=== PATIENT | male | born 1965 | race Caucasian/White ===

== ENCOUNTER 2018-03-17 01:12 | Day surgery (SDC) | payer BC ==
[~2018-03-17] VITALS: Ht 167.6 cm; Wt 72.1 kg
[2018-03-17] VITALS (8 sets, daily range): BP systolic 82–117; BP diastolic 54–88
[2018-03-17] MEDS ORDERED: PROPOFOL EMUL(*) 10MG/ML 20 ML 40 ML ONE (06:59)
[2018-03-17] MEDS ORDERED: NORMOSOL R SOLN(*) 1000 ML BAG 1,000 ML IV PRN (07:20)
[2018-03-17] MEDS ORDERED: LIDOCAINE/SOD BICARB 8.4% SYR ID ONE (07:20)
[2018-03-17] MEDS ORDERED: PROPOFOL EMUL(*) 10MG/ML 20 ML 20 ML ONE (08:42)
[2018-03-17] MEDS ORDERED: IOPAMIDOL 76% 75 ML INFUS BTL 75 ML ONE (10:07)
--- NOTE | 2018-03-17 11:09 | RADIOLOGY IMAGING REPORT ---
[place] [facility] [place] Nuñez : 1965 MR: [id number] V: [id number] EXAM DATE: ORDERING PHYSICIAN: GISELE ROPER TECHNOLOGIST: Location: [facility] Patient: Ellis Nuñez : 1965 Visit/Account:[id number] Date of Sevice: 03/17/2018 ABDOMEN/PELVIS WITH CONTRAST Provided history: COLON MASS Additional pertinent history: none TECHNIQUE: Spiral scan was obtained from the lower chest through the symphysis with intravenous cont rast Contrast dose: 75 mL Isovue 370 intravenously. Source images were reformatted in the coronal and sagittal planes. Additional series performed today: none One of the following dose optimization techniques was utilized in the performance of this exam: Autom ated exposure control; adjustment of the mA and/or kV according to the patient's size; or use of an i terative reconstruction technique. Specific details can be referenced in the facility's radiology CT exam operational policy. COMPARISON STUDIES: No relevant priors FINDINGS: Lower chest: Negative Liver/biliary: Negative Pancreas: Negative Spleen: Negative Adrenal glands: Negative Kidneys / ureters / bladder / genitourinary / retroperitoneum: Negative Bowel / peritoneum / mesenteries: Moderate asymmetric thickening of the anterior left lateral wall of the mid and upper rectum I presume correlates with the clinically evident mass. This appears to be b elow the peritoneal reflection. The mass extends for a length of approximately 5 cm with up to 9 mm t hickening of the wall. It appears to begin at least 5 cm above the anal verge. Only a single small perirectal lymph node is identified on axial image 96 and coronal image 65, nonsp ecific. There are shotty retroperitoneal lymph nodes are likely benign. No pathologically enlarged ab dominal or pelvic lymph nodes or inguinal lymph nodes. Vessels: negative Lymph nodes: See above. No significant additional lymph node findings. Body wall: Moderate sized subumbilical fat-containing hernia without inflammation. Bones: negative IMPRESSION: Asymmetric wall thickening of the mid and upper rectum as fully defined above I presume the site of p rimary neoplasm. Only a single very small lymph node noted in the perirectal fat. No distant adenopat hy. No evidence of distant metastatic disease. Report Dictated By: Omar Rivas MD at 03/17/2018 10:57 AM Report E-Signed By: Omar Rivas MD at 03/17/2018 11:06 AM WSN:[id number]
== END 2018-03-17 11:00 | disposition home or self-care (01) ==
LOC: OR 01:12
PROVIDERS: ATTEND Family Medicine
DX: C20 Malignant neoplasm of rectum (principal)
CPT/HCPCS: 00811; 36415; 45385; 74177; 82378; 88305; 88344; J2704; Q9967; 82040; 82247; 82310; 82374; 82435; 82565; 82947; 84075; 84132; 84155; 84295; 84450; 84460; 84520

== ENCOUNTER → 2018-03-22 | Outpatient (CLI) | payer BC ==
[~2018-03-22] MED LIST: GADOBENATE 529MG/1ML 15ML VIAL IVP ONE; NS 0.9% 25 ML BAG 50 ML ONE
--- NOTE | 2018-03-22 12:48 | RADIOLOGY IMAGING REPORT ---
FACILITY: [facility] [place] PATIENT NAME: Ellis Nuñez : 1965 MR: [id number] V: [id number] EXAM DATE: ORDERING PHYSICIAN: GISELE OLVERA TECHNOLOGIST: Location: [facility] [place] Patient: Ellis Nuñez : 1965 Visit/Account:[id number] Date of Sevice: 03/22/2018 ORBITS FOREIGN BODY 1 VIEW INDICATION: Pre-MRI. COMPARISON: None available FINDINGS: Single frontal view the orbits. No radiopaque foreign body besides dental work. The sinus es and mastoids visualized are clear. No gross bony abnormality. IMPRESSION: No radiopaque foreign body in the orbits. Report Dictated By: Kumar Clark at 03/22/2018 12:43 PM Report E-Signed By: Kumar Clark at 03/22/2018 12:44 PM WSN:[id number]
--- NOTE | 2018-03-22 18:18 | RADIOLOGY IMAGING REPORT ---
FACILITY: [facility] PATIENT NAME: Ellis Nuñez : 1965 MR: [id number] V: [id number] EXAM DATE: ORDERING PHYSICIAN: GISELE OLVERA TECHNOLOGIST: Location: [facility] Patient: Ellis Nuñez : 1965 Visit/Account:[id number] Date of Sevice: 03/22/2018 PELVIS W W/O CONTRAST HISTORY: Rectal mass TECHNIQUE: Multiplanar multisequence magnetic resonance imaging of the pelvis was performed with an d without intravenous contrast on a 1.5T magnet. High resolution oblique imaging of the pelvis was p erformed with attention to the rectal mass. CONTRAST: 15 mL IV MultiHance COMPARISON STUDIES: CT 03/17/18 FINDINGS: Rectal Tumor (T) : There is a circumferential mass of the lower sigmoid-rectal junction I think traversing the peritonea l reflection with the mass extending to the mid rectal level. Lower margin of the mass is at least 7 cm above the anal verge. There is eccentric thickening of the left lateral wall measuring up to 14 mm. Mass appears to be contained by the muscularis propria without gross extension into the mesorect al fat. The right mesorectal fascia is 7 mm from the margin of the right lateral wall the mass. The re is a larger mass free interval on left. Nodes (N) : None Metastasis (M) : None Other Findings: IMPRESSION: Large mid and upper rectal tumor and probably also involving the lower sigmoid which appears to be c ontained by the muscular propria, by MRI a T2 lesion. No pelvic adenopathy or osseous metastatic dis ease. Report Dictated By: Omar Rivas MD at 03/22/2018 5:56 PM Report E-Signed By: Omar Rivas MD at 03/22/2018 6:14 PM WSN:[id number]
== END ==
LOC: MRI 01:23
PROVIDERS: ATTEND Surgery
DX: Z13.89 Encounter for screening for other disorder (principal); K62.9 Disease of anus and rectum, unspecified
CPT/HCPCS: 70030; 72197; A9577

== ENCOUNTER → 2018-03-29 | Outpatient (CLI) | payer BC ==
[~2018-03-29] MED LIST changes: -GADOBENATE 529MG/1ML 15ML VIAL IVP ONE; +IOPAMIDOL 76% 75 ML INFUS BTL 75 ML ONE; -NS 0.9% 25 ML BAG 50 ML ONE
--- NOTE | 2018-03-29 13:01 | RADIOLOGY IMAGING REPORT ---
FACILITY: [facility] PATIENT NAME: Ellis Nuñez : 1965 MR: [id number] V: [id number] EXAM DATE: ORDERING PHYSICIAN: GISELE OLVERA TECHNOLOGIST: Location: [facility] [place] Patient: Ellis Nuñez : 1965 Visit/Account:[id number] Date of Sevice: 03/29/2018 CHEST W CONTRAST HISTORY: Rectal cancer staging TECHNIQUE: CT chest with intravenous contrast. Contiguous helical images was performed from the lung apices to below the diaphragm. One of the following dose optimization techniques was utilized in the performance of this exam: Autom ated exposure control; adjustment of the mA and/or kV according to the patient's size; or use of an i terative reconstruction technique. Specific details can be referenced in the facility's radiology C T exam operational policy. CONTRAST: 75 cc of Isovue-370 COMPARISON: CT abdomen pelvis 03/22/2018 FINDINGS: Heart/vessels: Negative. Mediastinum: Negative. Lymph nodes: Negative. Lungs/pleura: 3 mm pleural-based right middle lobe nodules noted image 208. 6 x 6 mm pleural-based left lower lobe nodules noted image 189. These nodules are indeterminant for follow-up. Visualized upper abdomen: Negative. Bones/soft tissues: T6 vertebral body hemangioma is noted. Mild compression of T5 is noted involvin g 5% of the vertebral body height which is of uncertain chronicity. IMPRESSION: 1. 2 small indeterminate pulmonary micronodules the largest measuring 6 mm in the left lower lobe. Follow-up CT scan in 6 months is suggested. Report Dictated By: Kumar Lainez MD at 03/29/2018 12:49 PM Report E-Signed By: Kumar Lainez MD at 03/29/2018 12:58 PM WSN:[email or web address]
== END ==
LOC: CT 01:51
PROVIDERS: ATTEND Surgery
DX: R91.8 Other nonspecific abnormal finding of lung field (principal)
CPT/HCPCS: 71260; Q9967

== ENCOUNTER 2018-04-07 02:15 | Inpatient (IN) | payer BC ==
[2018-04-05 13:13] LABS: PLATELET COUNT, AUTOMATED 326 K/uL (150-450)
[~2018-04-07] VITALS: Ht 167.6 cm; Wt 72.1 kg
[2018-04-07] VITALS (13 sets, daily range): BP systolic 83–109; BP diastolic 51–84
[2018-04-07] MEDS ORDERED: ROPIVACAINE 0.5% 20 ML VIAL ONE ×3 (07:19→16:28)
[2018-04-07] MEDS ORDERED: ONDANSETRON 4 MG/2 ML VIAL ONE ×2 (09:17→09:19)
[2018-04-07] MEDS ORDERED: PROPOFOL EMUL(*) 10MG/ML 20 ML 20 ML ONE (09:17)
[2018-04-07] MEDS ORDERED: LIDOCAINE MPF 1% 5 ML VIAL ONE ×3 (09:17→14:26)
[2018-04-07] MEDS ORDERED: DEXAMETHASONE SOD 4 MG/ML VIAL ONE (09:17)
[2018-04-07] MEDS ORDERED: MORPHINE PF 5 MG/10 ML AMP ONE (09:17)
[2018-04-07] MEDS ORDERED: fentaNYL CITR 100 MCG/2 ML AMP ONE ×2 (09:18→18:15)
[2018-04-07] MEDS ORDERED: SUGAMMADEX SOD 500 MG/5 ML SDV ONE (09:21)
[2018-04-07] MEDS ORDERED: ROCURONIUM BROM 10 MG/ML 10 ML ONE ×2 (09:21→13:35)
[2018-04-07] MEDS ORDERED: KETAMINE HCL 200 MG/20 ML MDV ONE ×2 (09:22→11:21)
[2018-04-07] MEDS ORDERED: ENOXAPARIN 40 MG/0.4ML SYR SC ONE (09:35)
[2018-04-07] MEDS ORDERED: AMPICILLIN/SULBACT (*) 3 GM VL 3 GM in NS(*) 0.9% 100 ML BAG 100 ML IVPB ONE (09:35)
[2018-04-07] MEDS ORDERED: LIDOCAINE/SOD BICARB 8.4% SYR ID ONE (09:50)
[2018-04-07] MEDS ORDERED: FAMOTIDINE 20 MG TAB PO ONE (09:50)
[2018-04-07] MEDS ORDERED: MIDAZOLAM 2 MG/2 ML VIAL IVP PRN (09:50)
[2018-04-07] MEDS ORDERED: PREGABALIN 150 MG CAPSULE PO ONE (09:50)
[2018-04-07] MEDS ORDERED: ACETAMINOPHEN 500 MG TAB PO ONE (09:50)
[2018-04-07] MEDS ORDERED: NORMOSOL R SOLN(*) 1000 ML BAG 1,000 ML IV PRN (09:50)
[2018-04-07] MEDS ORDERED: PROPOFOL(*)1000 MG/100 ML VIAL 100 ML ONE ×2 (10:48→13:18)
[2018-04-07] MEDS ORDERED: HYDROmorphone HCL 2 MG/ML SDV ONE (11:06)
[2018-04-07] MEDS ORDERED: DEXMEDETOMIDINE HCL 200 MCG/2 ML IV ONE (11:45)
[2018-04-07] MEDS ORDERED: ALBUMIN HUMAN 5% 250 ML BTL 250 ML ONE (14:41)
[2018-04-07] MEDS ORDERED: INDOCYANINE GREEN 25 MG VIAL IVP ONE (15:20)
[2018-04-07] MEDS ORDERED: PROPOFOL EMUL(*) 10MG/ML 20 ML 40 ML ONE (16:00)
[2018-04-07] MEDS ORDERED: ONDANSETRON 4 MG/2 ML VIAL IVP PRN ×2 (17:55→18:35)
[2018-04-07] MEDS ORDERED: PROMETHAZINE 25 MG/ML 1 ML AMP IVP PRN (17:55)
[2018-04-07] MEDS ORDERED: NALOXONE HCL 0.4 MG/ML VIAL IVP PRN ×2 (17:55→18:35)
[2018-04-07] MEDS ORDERED: FLUSH 10 ML SYR IVP PRN (17:55)
--- NOTE | 2018-04-07 18:16 | Post Operative Progress Note ---
Post Operative Progress Note Date: Apr 07, 2018 Time: 17:58 Surgeon: Maricarmen Dictation number: [id number] Anesthesia: GETA by Dr. Palma Pre-Op Diagnosis: T2 Rectal Cancer Post-Op Diagnosis: JESSICA Findings: C/W dx, distal and proximal margins were wide, distal 5cm and proximal 9cm. Procedure(s): Robotic splenic flexure mobilization and low anterior resection colorectal anastomosis with diverting loop ileostomy Specimen Removed:(May be N/A): Distal sigmoid and Rectum Complications: None Fluids: 2900mL crystalloid 500mL albumin UOP: 800mL Estimated Blood Loss: 100mL Date OP Note Dictated: Apr 07, 2018 Time OP Note Dictated: 18:00 GISELE OLVERA MD Apr 07, 2018 18:16
[2018-04-07] MEDS ORDERED: NORMOSOL R SOLN(*) 1000 ML BAG 1,000 ML IV ONE (18:23)
[2018-04-07] MEDS ORDERED: METOCLOPRAMIDE 10 MG/2 ML SDV IVP PRN (18:35)
[2018-04-07] MEDS ORDERED: diphenhydrAMINE 25 MG CAP PO PRN (18:35)
[2018-04-07] MEDS ORDERED: NALBUPHINE HCL 10 MG/ML AMP IVP PRN (18:35)
[2018-04-07] MEDS: ACETAMINOPHEN(*)1000 MG/100 ML 100 ML IVPB SCH (18:45)
[2018-04-07] MEDS: PIPERACILLIN/TAZO*3.375GM VIAL 3.375 GM in NS(*) 0.9% 100 ML ADDVANT BAG 100 ML IVPB SCH (18:51)
--- NOTE | 2018-04-07 19:54 | RADIOLOGY IMAGING REPORT ---
FACILITY: [facility] PATIENT NAME: Ellis Nuñez : 1965 MR: [id number] V: [id number] EXAM DATE: ORDERING PHYSICIAN: GISELE OLVERA TECHNOLOGIST: [place] [facility] [place] Nuñez : 1965 Visit/Account:[id number] Date of Sevice: 04/07/2018 Examination: KUB SINGLE VIEW ABDOMEN Comparison: CT abdomen and pelvis 03/17/2018. History: Instrument check. Findings: Sullivan catheter. Surgical anastomosis in the region of the rectum. No radiopaque foreign bod y is otherwise identified. Bowel gas pattern is unremarkable. Subcutaneous soft tissue gas is presuma enrique postsurgical. IMPRESSION: No radiopaque foreign body. Report Dictated By: Rios Knox MD at 04/07/2018 7:43 PM Report E-Signed By: Rios Knox MD at 04/07/2018 7:49 PM WSN:[id number]
--- NOTE | 2018-04-07 20:09 | OPERATIVE REPORT 1 ---
EVENT DATE: April 07, 2018 SURGEON: Felton Hernadez MD ANESTHESIOLOGIST: Rafita Palma MD ANESTHESIA: General endotracheal anesthesia. PREOPERATIVE DIAGNOSIS Rectal cancer. POSTOPERATIVE DIAGNOSIS Rectal cancer. PROCEDURES PERFORMED 1. Robotic splenic flexure mobilization. 2. Robotic low anterior resection. 3. Colorectal anastomosis. 4. Diverting loop ileostomy. COMPLICATIONS None. CONDITION Stable. BLOOD LOSS 100 mL URINE OUTPUT 800 mL INTRAVENOUS FLUIDS Crystalloid 2.9 L and albumin 500 mL. SPECIMENS Distal sigmoid colon and upper two-thirds of the rectum. FINDINGS I opened the specimen up and saw the tumor. My distal margin was at least 5 cm , and my proximal margin was almost 10 cm. There were no obvious signs of extracolonic spread, and I could not see any evidence of close circumferential radial margins. INDICATIONS This is a 53-year-old gentleman who recently underwent a colonoscopy by Dr. Montesinos because he was having bright red blood per rectum. Dr. Montesinos found a rectal cancer in his mid to upper rectum at about 10 to 12 cm from the anus. He referred him to me, and I discussed the options. The patient elected to proceed with a robotic low anterior resection of his rectal cancer. DESCRIPTION OF PROCEDURE The patient was brought to the operating room and placed supine on the operating table. General endotracheal anesthesia was administered, and Dr. Palma also performed an epidural before induction. He had also received a dose of 40 mg of Lovenox in the preop area as well as prophylactic antibiotics, and he has had the mechanical bowel prep that he completed yesterday. He was placed in [facility] stirrups, and all pressure points were padded appropriately. His abdomen was then prepped and draped in the sterile fashion. Timeout was completed. I then injected the right subcostal skin with 0.5% ropivacaine plain and made a small 5 mm incision in the right subcostal skin. I used the Veress needle and insufflated the abdomen to a pressure of 15 mmHg and then used a zero-degree, 5 mm camera in an optical trocar and inserted this into the abdomen. I then looked around the abdomen and failed to see any evidence of neoplasm except at the peritoneal reflection down in the pelvis I could see a thickening that I assumed was the neoplasm. Next, under direct visualization, I placed an 8 mm robotic port in the epigastric midline and one in the right upper mid abdomen below the 5 mm port, one in the right mid abdomen where proposed ileostomy would go, and then a 12 mm port in the right lower quadrant just medial to the anterior superior iliac spine. I then had the patient placed in steep Trendelenburg and planed towards his right and moved the bowel out away from the pelvis as well as the greater omentum up over the liver and stomach. I then brought in the robot, docked the robot, targeted it, and inserted all my appropriate instruments. I then identified the sacral promontory and tented up the mesocolon at this point. I used hot scissors to divide the peritoneum overlying the mesocolon both distally and proximally all the way up to just lateral to the ligament of Treitz. I then raised the mesocolon up off the retroperitoneal fascial plane and identified easily the right ureter and gonadal vessels, and these were maintained in a down position and preserved. I identified the RC and the IMV. The RC was cleaned off circumferentially and divided with a white load on a IAN stapler, and the vein was divided with the vessel sealer. These were done in a hemostatic fashion. I continued my dissection over the pancreas and laterally until I reached the lateral attachment of the colon and also got into the lesser sac superiorly. At this point, I took down the greater omentum from about mid transverse colon all the way to the splenic flexure. I then divided the lateral attachments to the sigmoid colon and descending colon all the way up to the spleen and connected the planes from the medial to lateral dissection. At this point, the splenic flexure mobilization was complete, and I had plenty of colon to work with. I then turned my attention to the pelvis and created the holy plane down in the presacral space. I then divided the peritoneum along the peritoneal reflection both medially and laterally and then anteriorly. I stayed well away from the tumor which was not extending beyond the peritoneum because its mass effect was obvious. I then completed a total mesorectal excision of the rectum all the way down to about 5 cm from the anus. Once I got down to this point, had everything cleaned off and the rectum isolated at this point, I used the robotic IAN stapler with a green load and was able to divide the rectum mostly in one firing, but there was a little couple millimeter segment that I had to divide with another firing of this stapler. I then created a suprapubic Pfannenstiel incision measuring about 2 inches after anesthetizing the skin with 0.5% ropivacaine plain. I dissected the dermis and the subcutaneous fat. I made a transverse incision in the anterior rectus fascia and then spread the muscles laterally and then made a vertical incision in the posterior peritoneum. I then placed a wound protector into this wound and then pulled out the specimen through this wound. I then could easily palpate the tumor, and I could tell that my distal staple line was well distal of the tumor. I measured approximately 10 cm proximal to this and noticed that I had enough length at this point to be able to go down to the pelvis easily, and so I divided the mesoappendix and divided the colon at this level with the IAN stapler with a blue load. I then took the colon to the back table and opened it up. I saw the tumor and measured my distal staple line at 5 cm from the distal portion of the tumor. The proximal division was 9 cm from the proximal portion of the tumor. There was no obvious extracolonic extension of the tumor. It was then placed in preservative and sent to Pathology. I then got into a new gown and gloves and then used the EEA sizer and measured that I could put a 33 mm stapler into the patient's rectum without any problems. I also removed the staple line from the colon and then used the EEA sizer, and a 33 mm stapler fit into this quite nicely. I then obtained the 33 mm EEA stapler with a green load, removed the anvil, and placed it in the colon. I used a 3-0 silk suture and made a pursestring around this to secure the anvil. The colon was then dropped back into the abdomen, and I then sealed the Pfannenstiel by clamping the wound protector and using towel clamps to reapproximate the skin so we could regain insufflation. I then irrigated and dried the pelvis, and there was no bleeding at this point. I then inserted the EEA stapler through the patient's rectum and saw it engage the rectal stump over the staple line. I advanced the trocar through the staple line. I then scrubbed back in. My digital sales assistant held the EEA stapler, and I used the laparoscopic atraumatic grasper and grasped the anvil. I made sure the bowel was not twisted and then engaged the main portion of the EEA stapler until it locked into place. I then went back between the patient's legs, and using the EEA stapler, rotated it until the anvil engaged in the line went into the middle of the green zone. I then released the safety, fired the stapler, left it fired for about 15 seconds, and then released the trigger handle. I placed the safety back into position, gently opened the anvil about a half a turn, and then slowly rotated the EEA stapler and backed it out of the rectum without any problems. I then had my digital sales assistant occlude the colon above the anastomosis with a clamp, and we filled the pelvis with normal saline. I used the rigid proctoscope and inflated the rectum and distal colon. There was no bubbling. I inspected the anastomosis, and there was some mild oozing, but nothing of concern. It was reassuring to see good blood flow. I then scrubbed back in with a new gown and gloves. We used Firefly and could see glowing vessels in the colon as well as the rectum with good perfused anastomosis. I then identified a loop of small intestine which I had previously warned the patient that this was possible. Because of how low the anastomosis was in this male patient, I elected to proceed with a diverting loop ileostomy. I grasped it with an atraumatic grasper, then externally anesthetized the skin where I had marked the stoma to be, and then removed a quarter sized piece of skin. I dissected through the subcutaneous fat, made a cruciate incision in the anterior rectus fascia, spread the muscle fibers apart without dividing them, and then went through the posterior fascia and into the peritoneal cavity. I then pulled the loop of small bowel through this so it was protruding. I then looked back in the abdomen, and there was no bleeding or fluid collections at all. I irrigated and dried the pelvis and made sure all the irrigation fluid we had used to test the anastomosis was removed from the pelvis. We then removed all the ports and instruments, and then I closed the 12 mm port fascia in the right lower quadrant with a [id number] 0 Vicryl suture and then closed the peritoneum in the Pfannenstiel incision in a vertical fashion with running 3-0 Vicryl suture, as well as reapproximated the rectus muscles in the midline with interrupted 3-0 Vicryl sutures. The anterior sheath was closed transversely with an 0 PDS suture. I then closed the subcutaneous tissue with interrupted 3-0 Vicryl sutures, and the skin was closed with running 4-0 Monocryl sutures. All the port site incisions were also closed with 4-0 Monocryl subcuticular sutures. After this, the patient's abdomen was then cleaned and dried, and Steri-Strips were applied to each of the incisions. They were covered with sterile surgical dressings. I then covered them with 10/ 10 drapes to protect them while I matured the stoma. The bowel was secured to the dermis with interrupted 3-0 Vicryl sutures, and then I opened the bowel transversely and matured it in a Indigo fashion with interrupted 4-[address] all the way around. A stoma appliance was then placed around this. He was then awakened and extubated in the operating room and transported to the recovery room in stable condition having tolerated the procedure without any apparent problems. ABEBA
[2018-04-07] MEDS: NS(*) 0.9% 1000 ML BAG 1,000 ML IV PRN (20:33)
[2018-04-07] MEDS: HYDROmorphone PCA 6 MG/30 ML IV PRN (20:33)
[2018-04-08] VITALS (15 sets, daily range): BP systolic 80–105; BP diastolic 54–83; Ht 167.6 cm; Wt 72.1 kg
[2018-04-08] MEDS: PIPERACILLIN/TAZO*3.375GM VIAL 3.375 GM in NS(*) 0.9% 100 ML ADDVANT BAG 100 ML IVPB SCH ×5 (00:07→23:56)
[2018-04-08] MEDS: ACETAMINOPHEN(*)1000 MG/100 ML 100 ML IVPB SCH ×5 (00:09→23:56)
[2018-04-08] MEDS: NS(*) 0.9% 1000 ML BAG 1,000 ML IV PRN ×2 (05:33→17:05)
[2018-04-08 06:07] LABS: PLATELET COUNT, AUTOMATED 292 K/uL (150-450)
--- NOTE | 2018-04-08 07:06 | General Surgery Progress Note ---
Subjective Progress Notes Subjective No complaints this morning. Pain well controlled. Physical Exam Vital Signs Date Time Temp Pulse Resp B/P (MAP) Pulse Ox O2 Delivery O2 Flow Rate FiO2 04/08/18 05:21 97 04/08/18 03:09 98.5 72 16 96/69 (78) 2.0 04/08/18 03:00 Nasal Cannula General Appearance: Alert, Awake, No Acute Distress, Afebrile GI: Other (Soft, appropriate postop TTP, dressings C/D/I. Stoma is pink with some liquid stool in the bag.) Extremities: Warm, Perfused Result Diagram: 04/08/1842 04/08/18541 Assessment and Plan Problems: (1) Rectal cancer Status: Chronic Assessment & Plan: 04/08/18: POD#1 s/p robotic LAR with anastomosis at 4cm from anus, splenic flexure mobilization, loop ileostomy. Doing well this morning. Will start low volume clears. O/W, continue PPI, lovenox, amubulation , pulmonary hygiene, IS, etc. Condition Stable. Time Spent: < 30 min Exam Sepsis Risk: No Definite Risk GISELE OLVERA MD Apr 08, 2018 07:06
[2018-04-08] MEDS: PANTOPRAZOLE SOD 40 MG IV VIAL IVP SCH (08:32)
[2018-04-08] MEDS: ENOXAPARIN 40 MG/0.4ML SYR SC SCH (08:33)
[2018-04-09] MEDS: NS(*) 0.9% 1000 ML BAG 1,000 ML IV PRN (04:23)
[2018-04-09 04:25] VITALS: BP 106/64
[2018-04-09] MEDS: ACETAMINOPHEN(*)1000 MG/100 ML 100 ML IVPB SCH ×4 (05:25→23:15)
[2018-04-09] MEDS: PIPERACILLIN/TAZO*3.375GM VIAL 3.375 GM in NS(*) 0.9% 100 ML ADDVANT BAG 100 ML IVPB SCH ×4 (05:25→23:51)
[2018-04-09 06:15] LABS: PLATELET COUNT, AUTOMATED 209 K/uL (150-450)
[2018-04-09 07:34] VITALS: BP 115/65
[2018-04-09] MEDS: ENOXAPARIN 40 MG/0.4ML SYR SC SCH (08:34)
[2018-04-09] MEDS: PANTOPRAZOLE SOD 40 MG IV VIAL IVP SCH (08:34)
[2018-04-09] MEDS ORDERED: NS(*) 0.9% 1000 ML BAG 1,000 ML IV PRN (09:38)
[2018-04-09 10:55] VITALS: BP 118/73
--- NOTE | 2018-04-09 11:06 | General Surgery Progress Note ---
Subjective Progress Notes Subjective No complaints. Tolerating limited volume of clears. Physical Exam Vital Signs Date Time Temp Pulse Resp B/P (MAP) Pulse Ox O2 Delivery O2 Flow Rate FiO2 04/09/18 09:42 15 93 04/09/18 07:42 Nasal Cannula 1.0 04/09/18 07:34 99.2 80 115/65 (82) Intake and Output 04/10/18 07:00 Output Total 200 ml Balance -200 ml Stool Total 200 ml General Appearance: Alert, Awake, No Acute Distress, Afebrile GI: Soft and Non-Tender (Stoma is pink with gas and liquid stool in the bag.) Extremities: Warm, Perfused Result Diagram: 04/09/18 0538 04/09/18 0538 Assessment and Plan Problems: (1) Rectal cancer Status: Chronic Assessment & Plan: 04/08/18: POD#1 s/p robotic LAR with anastomosis at 4cm from anus, splenic flexure mobilization, loop ileostomy. Doing well this morning. Will start low volume clears. O/W, continue PPI, lovenox, amubulation , pulmonary hygiene, IS, etc. 04/09/18: POD#2. Doing well. Good output from stoma, both gas and liquid stool. Will start unrestricted clear diet today and start to come down on IV fluids. Ambulation, pulmonary hygiene, PPI, lovenox, etc. H/H down a little but no other signs of bleeding. Will check H/H tomorrow morning. Will need to follow ileostomy output closely to monitor for excess fluid and electrolyte losses. Hopefully it will thicken a little and slow down once on regular diet. Overall, he's doing great with good bowel function. Will start ileostomy care education and arrange for home health nursing for continue stoma care and education after discharge. Condition Stable. Time Spent: < 30 min Exam Sepsis Risk: No Definite Risk GISELE OLVERA MD Apr 09, 2018 11:06
--- NOTE | 2018-04-09 11:39 | Medical Nutrition Therapy ---
Nutrition Anthropometrics Height (Inches): 66.00 Height (Calculated Centimeters: 167.822768 Weight (Pounds): 159 Weight (Calculated Kilograms): 72.121 Gui Nutrition Score: Probably Inadequate Gui Nutrition Risk Score: 18 Dietary Referral Nutrition Risk Factors: Unplanned Loss >10lbs Nutrition Risk Comment: Physical Findings Physical Appearance: Overweight BMI 25-29 Skin Appearance Skin Appearance: Edema Edema Location Modifier: Edema Location: Type of Edema: Degree of Edema: Gastrointestinal Symptoms GI Symtoms: Change in Bowel Pattern Tube Present: Bowel Sounds: Recent Bowel Pattern: Colostomy Stool Characteristics: Nutrition/Food History No Significant Nutr. HX Nutritional Diagnosis Nutritional Risk Acuity 2: Unintended Wt Loss >5%/mo, Ileostomy Nutritional Risk Acuity 3: Cancer Nutritional Acuity: 2-Moderate Nutrition Diagnosis: Involuntary Wt. Loss Nutrition Etiology: Physiological Causes Nutrition Problem/Etiology/Sym: Unintended Weight Loss related to Physiological causes increasing nutrient needs AEB dx of rectal cancer and reports of > 10# wt loss. Energy Requirement: 2260 (Valencia-St Jeor: Actual BW X 1.5) Protein Requirement: 72 (Actual BW Kg X 1.0) Fluid Requirement: 2260 Diet Type: Clear Liquids Nutrition Intervention: Incr diet as tolerated Nutrition Monitoring & Eval RD Patient Assessment Time: [address] Assessment Type: RD Assessment Patient Nutrition Acuity: 2-Moderate Follow Up Date: Apr 09, 2018 Nutritional Comment: 04/08 Pt admitted for s/p ileostomy with rectal CA. Pt currently NPO. Pt reported > 10# wt loss. Current BMI is in overwt range. Alb 4.2, WNR. Will cont to monitor. 04/09 POD#2 from robotic LAR with anastomosis at 4cm from anus, splenic flexure mobilization, loop ileostomy. Pt on clear liquids and tolerating with no problems. Low H/H, Ca+ 7.9. Follow clinical progression and diet changes. -ANGELES HULL Apr 09, 2018 11:39
[2018-04-09 14:38] VITALS: BP 131/77
[2018-04-09 19:20] VITALS: BP 123/74
[2018-04-09 23:09] VITALS: BP 117/87
[2018-04-10 02:45] VITALS: BP 117/84
[2018-04-10] MEDS: ACETAMINOPHEN(*)1000 MG/100 ML 100 ML IVPB SCH ×4 (05:20→23:53)
[2018-04-10 05:46] LABS: PLATELET COUNT, AUTOMATED 244 K/uL (150-450)
[2018-04-10] MEDS: PIPERACILLIN/TAZO*3.375GM VIAL 3.375 GM in NS(*) 0.9% 100 ML ADDVANT BAG 100 ML IVPB SCH ×3 (05:52→17:40)
[2018-04-10 07:12] VITALS: BP 108/80
[2018-04-10] MEDS: PANTOPRAZOLE SOD 40 MG IV VIAL IVP SCH (08:15)
[2018-04-10] MEDS: ENOXAPARIN 40 MG/0.4ML SYR SC SCH (08:16)
--- NOTE | 2018-04-10 08:44 | General Surgery Progress Note ---
Subjective Progress Notes Subjective No complaints. Feeling better today compared to yesterday. Tolerating clear diet without problems. Physical Exam Vital Signs Date Time Temp Pulse Resp B/P (MAP) Pulse Ox O2 Delivery O2 Flow Rate FiO2 04/10/18 07:39 16 96 04/10/18 07:35 Nasal Cannula 1.0 04/10/18 07:12 99.0 73 108/80 (89) Intake and Output 04/11/18 07:00 Output Total 150 ml Balance -150 ml Stool Total 150 ml # Bowel Movements 1 General Appearance: Alert, Awake, No Acute Distress, Afebrile GI: Other (Soft, appropriate postop TTP, Incisions look good without erythema or drainage. Stoma is pink and functional with gas and stool in bag.) Extremities: Warm, Perfused Result Diagram: 04/10/1852104/10/18521 Assessment and Plan Problems: (1) Rectal cancer Status: Chronic Assessment & Plan: 04/08/18: POD#1 s/p robotic LAR with anastomosis at 4cm from anus, splenic flexure mobilization, loop ileostomy. Doing well this morning. Will start low volume clears. O/W, continue PPI, lovenox, amubulation , pulmonary hygiene, IS, etc. 04/09/18: POD#2. Doing well. Good output from stoma, both gas and liquid stool. Will start unrestricted clear diet today and start to come down on IV fluids. Ambulation, pulmonary hygiene, PPI, lovenox, etc. H/H down a little but no other signs of bleeding. Will check H/H tomorrow morning. Will need to follow ileostomy output closely to monitor for excess fluid and electrolyte losses. Hopefully it will thicken a little and slow down once on regular diet. Overall, he's doing great with good bowel function. Will start ileostomy care education and arrange for home health nursing for continue stoma care and education after discharge. 04/10/18: POD#3. Doing well. Still good output from stoma. Tolerating clear diet. Will start regular diet today, pt advised to start slow and increase volume as tolerated, stop if he becomes bloated or nauseated. H/H stable. Ambulate, IS, pulmonary hygiene, PPI, lovenox. Will stop IV abx tomorrow if he' s afebrile. Overall, he's doing great. Condition Stable. Time Spent: < 30 min Exam Sepsis Risk: No Definite Risk GISELE OLVERA MD Apr 10, 2018 08:44
[2018-04-10 11:28] VITALS: BP 128/82
--- NOTE | 2018-04-10 12:59 | Medical Nutrition Therapy ---
Nutrition Anthropometrics Height (Inches): 66.00 Height (Calculated Centimeters: 167.391449 Weight (Pounds): 159 Weight (Calculated Kilograms): 72.121 BMI: 25.7 Gui Nutrition Score: Probably Inadequate Gui Nutrition Risk Score: 19 Dietary Referral Nutrition Risk Factors: Unplanned Loss >10lbs Nutrition Risk Comment: Physical Findings Physical Appearance: Overweight BMI 25-29 Skin Appearance Skin Appearance: Edema Edema Location Modifier: Edema Location: Type of Edema: Degree of Edema: Gastrointestinal Symptoms GI Symtoms: Change in Bowel Pattern Tube Present: Bowel Sounds: Recent Bowel Pattern: Colostomy Stool Characteristics: Nutrition/Food History No Significant Nutr. HX Nutritional Diagnosis Nutritional Risk Acuity 2: Unintended Wt Loss >5%/mo, Ileostomy Nutritional Risk Acuity 3: Cancer Nutritional Acuity: 2-Moderate Nutrition Diagnosis: Involuntary Wt. Loss Nutrition Etiology: Physiological Causes Nutrition Problem/Etiology/Sym: Unintended Weight Loss related to Physiological causes increasing nutrient needs AEB dx of rectal cancer and reports of > 10# wt loss. Energy Requirement: 2260 ([place]-St Jeor: Actual BW X 1.5) Protein Requirement: 72 (Actual BW Kg X 1.0) Fluid Requirement: 2260 Diet Type: Clear Liquids Nutrition Intervention: Incr diet as tolerated Nutrition Monitoring & Eval RD Patient Assessment Time: [address] Assessment Type: RD Assessment Patient Nutrition Acuity: 2-Moderate Follow Up Date: Apr 12, 2018 Nutritional Comment: 04/08 Pt admitted for s/p ileostomy with rectal CA. Pt currently NPO. Pt reported > 10# wt loss. Current BMI is in overwt range. Alb 4.2, WNR. Will cont to monitor. 04/09 POD#2 from robotic LAR with anastomosis at 4cm from anus, splenic flexure mobilization, loop ileostomy. Pt on clear liquids and tolerating with no problems. Low H/H, Ca+ 7.9. Follow clinical progression and diet changes. -AKILA 04/10 Diet change to GABRIEL with no reports of intake. Follow diet toleration, wt, labs, etc. -ANGELES HULL Apr 10, 2018 12:59
[2018-04-10 14:53] VITALS: BP 124/79
[2018-04-10 20:33] VITALS: BP 120/86
[2018-04-10] MEDS: HYDROmorphone PCA 6 MG/30 ML IV PRN (20:55)
[2018-04-10 23:58] VITALS: BP 123/81
[2018-04-11] MEDS: PIPERACILLIN/TAZO*3.375GM VIAL 3.375 GM in NS(*) 0.9% 100 ML ADDVANT BAG 100 ML IVPB SCH ×2 (00:17→05:58)
[2018-04-11 03:15] VITALS: BP 122/79
[2018-04-11] MEDS: ACETAMINOPHEN(*)1000 MG/100 ML 100 ML IVPB SCH (05:34)
[2018-04-11 07:23] VITALS: BP 119/92
[2018-04-11] MEDS ORDERED: IBUPROFEN 200 MG TAB PO PRN (07:55)
[2018-04-11] MEDS ORDERED: HYDROmorphone HCL 2 MG/ML SDV IVP PRN (07:55)
--- NOTE | 2018-04-11 08:01 | General Surgery Progress Note ---
Subjective Progress Notes Subjective Main complaint this morning is right shoulder pain. No N/V. Tolerating diet. Physical Exam Vital Signs Date Time Temp Pulse Resp B/P (MAP) Pulse Ox O2 Delivery O2 Flow Rate FiO2 04/11/18 07:23 98.1 72 16 119/92 (101) 92 Room Air 04/11/18 03:15 0.5 General Appearance: Alert, Awake, No Acute Distress, Afebrile Neuro: No Gross deficits Eyes: PERRLA GI: Other (Soft, appropriate postop TTP, incisions all look good without erythema or drainage. Stoma is pink and functional.) Musculoskeletal: Other (Right shoulder is very sore, anteriorly over lateral upper pectoralis muscle and posterior over supraspinatus muscles with radiation down to anterior mid upper arm when I palpate both areas. No obvious swelling or deformity.) Extremities: Warm, Perfused Result Diagram: 04/10/1852104/10/18521 Assessment and Plan Problems: (1) Rectal cancer Status: Chronic Assessment & Plan: 04/08/18: POD#1 s/p robotic LAR with anastomosis at 4cm from anus, splenic flexure mobilization, loop ileostomy. Doing well this morning. Will start low volume clears. O/W, continue PPI, lovenox, amubulation , pulmonary hygiene, IS, etc. 04/09/18: POD#2. Doing well. Good output from stoma, both gas and liquid stool. Will start unrestricted clear diet today and start to come down on IV fluids. Ambulation, pulmonary hygiene, PPI, lovenox, etc. H/H down a little but no other signs of bleeding. Will check H/H tomorrow morning. Will need to follow ileostomy output closely to monitor for excess fluid and electrolyte losses. Hopefully it will thicken a little and slow down once on regular diet. Overall, he's doing great with good bowel function. Will start ileostomy care education and arrange for home health nursing for continue stoma care and education after discharge. 04/10/18: POD#3. Doing well. Still good output from stoma. Tolerating clear diet. Will start regular diet today, pt advised to start slow and increase volume as tolerated, stop if he becomes bloated or nauseated. H/H stable. Ambulate, IS, pulmonary hygiene, PPI, lovenox. Will stop IV abx tomorrow if he' s afebrile. Overall, he's doing great. 04/11/18: POD#4. Doing well. Will get and x-ray of his right shoulder. Tolerating regular diet. Will stop IV meds and convert to PO. If x-ray OK and he tolerates PO meds then he could possibly go home later today vs tomorrow morning. Ambulate, pulmonary hygiene, IS, PPI, lovenox. (2) Right shoulder pain Status: Acute Condition Stable. Time Spent: < 30 min Exam Sepsis Risk: No Definite Risk Problem Qualifiers (1) Right shoulder pain: Chronicity: acute Qualified Codes: M25.511 - Pain in right shoulder GISELE OLVERA MD Apr 11, 2018 08:01
[2018-04-11] MEDS: ENOXAPARIN 40 MG/0.4ML SYR SC SCH (08:38)
[2018-04-11] MEDS: PANTOPRAZOLE SOD 40 MG TABEC PO SCH (08:38)
[2018-04-11] MEDS: ACETAMINOPHEN 325 MG TAB PO PRN ×2 (08:38→16:27)
--- NOTE | 2018-04-11 09:22 | RADIOLOGY IMAGING REPORT ---
FACILITY: [facility] PATIENT NAME: Ellis Nuñez : 1965 MR: [id number] V: [id number] EXAM DATE: ORDERING PHYSICIAN: GISELE OLVERA TECHNOLOGIST: Location: [facility] Patient: Ellis Nuñez : 1965 Visit/Account:[id number] Date of Sevice: 04/11/2018 Technique: SHOULDER MIN 2 VIEWS RIGHT HISTORY: Right shoulder pain 4 days after robotic abd surgery Comparison studies: None FINDINGS: There is no acute fracture. Marginal osteophytosis is noted at the glenohumeral joint. Th e alignment of the right shoulder is maintained. Soft tissues are unremarkable. IMPRESSION: 1. No acute osseous process. 2. Degenerative changes as described above. Report Dictated By: Shaheen Pedro DO at 04/11/2018 9:17 AM Report E-Signed By: Shaheen Pedro DO at 04/11/2018 9:18 AM WSN:[id number]
[2018-04-11 11:28] VITALS: BP 123/79
[2018-04-11 16:11] VITALS: BP 131/75
[2018-04-11 20:05] VITALS: BP 103/69
[2018-04-12 03:36] VITALS: BP 116/84
[2018-04-12] MEDS ORDERED: PER PO (07:15)
--- NOTE | 2018-04-12 07:18 | Short(Outpt) Discharge Summary ---
Discharge Summary Reason for Hosp/Final Diag: (1) Rectal cancer Status: Chronic Hospital Course & Plan: 04/08/18: POD#1 s/p robotic LAR with anastomosis at 4cm from anus, splenic flexure mobilization, loop ileostomy. Doing well this morning. Will start low volume clears. O/W, continue PPI, lovenox, amubulation , pulmonary hygiene, IS, etc. 04/09/18: POD#2. Doing well. Good output from stoma, both gas and liquid stool. Will start unrestricted clear diet today and start to come down on IV fluids. Ambulation, pulmonary hygiene, PPI, lovenox, etc. H/H down a little but no other signs of bleeding. Will check H/H tomorrow morning. Will need to follow ileostomy output closely to monitor for excess fluid and electrolyte losses. Hopefully it will thicken a little and slow down once on regular diet. Overall, he's doing great with good bowel function. Will start ileostomy care education and arrange for home health nursing for continue stoma care and education after discharge. 04/10/18: POD#3. Doing well. Still good output from stoma. Tolerating clear diet. Will start regular diet today, pt advised to start slow and increase volume as tolerated, stop if he becomes bloated or nauseated. H/H stable. Ambulate, IS, pulmonary hygiene, PPI, lovenox. Will stop IV abx tomorrow if he' s afebrile. Overall, he's doing great. 04/11/18: POD#4. Doing well. Will get and x-ray of his right shoulder. Tolerating regular diet. Will stop IV meds and convert to PO. If x-ray OK and he tolerates PO meds then he could possibly go home later today vs tomorrow morning. Ambulate, pulmonary hygiene, IS, PPI, lovenox. 04/12/18: POD#5. Doing well. Tolerating diet. No bony or joint issues with right should on x-ray. Feels a little better this morning. Will d/c to home this morning. (2) Right shoulder pain Status: Acute Hospital Course & Plan: X-ray unremarkable. Departure Discharge to: Home, Self Care Discharge Instructions Home Meds Active Scripts Oxycodone/Acetaminophen (OXYCODONE/ACETAMINOPHEN 5MG/325 MG) 5 Mg/325 Mg Tab, 1- 2 TAB PO Q6H Y for PAIN, #20 TAB 0 Refills Prov:GISELE OLVERA MD 04/12/18 Follow up Referrals: General Surgery - 04/15/18 @ Surgery, General with Gisele Olvera Md You have a follow up appointment scheduled with Dr. Olvera on 04/15/18, at 1:00pm. Diet: Regular Activity: No Heavy Lifting Special Instructions: You may shower as tolerated but don't immerse the incisions for 2 weeks. Leave the steristrips in place until they fall off on their own. Avoid any activity that involves straining or lifting more than 10 pounds for 6 weeks after surgery. Problem Qualifiers (1) Right shoulder pain: Chronicity: acute Qualified Codes: M25.511 - Pain in right shoulder GISELE OLVERA MD Apr 12, 2018 07:18
[2018-04-12 07:35] VITALS: BP 118/75
[2018-04-12] MEDS: ENOXAPARIN 40 MG/0.4ML SYR SC SCH (09:27)
[2018-04-12] MEDS: PANTOPRAZOLE SOD 40 MG TABEC PO SCH (09:28)
== END 2018-04-12 10:38 | disposition home health service (06) | DRG 331 ==
LOC: OR 02:15 → MED 20:05
PROVIDERS: ADMIT Surgery; ATTEND Surgery
PROC: 0DBP4ZZ Excision of Rectum, Percutaneous Endoscopic Approach (ICD-10-PCS; 2018-04-07)
PROC: 8E0W8CZ Robotic Assisted Procedure of Trunk Region, Via Natural or Artificial Opening Endoscopic (ICD-10-PCS; 2018-04-07)
PROC: 0D1M0Z4 Bypass Descending Colon to Cutaneous, Open Approach (ICD-10-PCS; principal; 2018-04-07 10:26)
DX: C19 Malignant neoplasm of rectosigmoid junction (principal); Z87.891 Personal history of nicotine dependence
CPT/HCPCS: 36415; 74018; 82040; 82247; 82310; 82374; 82435; 82565; 82947; 84075; 84132; 84155; 84295; 84450; 84460; 84520; 85025; 86850; 86900; 86901; 86920; 88305; 88307; 93005; C9113; J0131; J0295; J1100; J1170; J1650; J2001; J2250; J2270; J2405; J2543; J2704; J2795; J3010; J3490; J7030; J7050; P9045

== ENCOUNTER 2018-04-15 22:22 | Observation (INO) | payer BC ==
[~2018-04-15] VITALS: Ht 167.6 cm; Wt 72.7 kg
[~2018-04-15 22:22] MED LIST changes: -IOPAMIDOL 76% 75 ML INFUS BTL 75 ML ONE; +PER PO
--- NOTE | 2018-04-15 22:59 | ER Report ---
History and Physical Time Seen By MD: 22:48 Hx. of Stated Complaint: PATIENT STATES HAD A BOWEL RESCETION D/T COLON CANCER. PATIENT STARTED RUNNING FEVER OF 101.5, TOOK 1000MG OF TYELNOL AT 1500 AT 2100 HE TOOK 2TABS OF PERCOCET. RETOOK TEMP 103 HPI/ROS CHIEF COMPLAINT: Fever HISTORY OF PRESENT ILLNESS: This is a 53-year-old male. He had surgery for colon cancer last week, Dr. Stack performed this. He had partial colectomy with reanastomosis but with a diverting ileostomy. He has had some chills earlier today and then later this afternoon started having fever. He took 2 Tylenol earlier this afternoon and then later he took 2 of his Percocet tablets. Fever up to 103. He has some mild abdominal pain, but not more than you would expect postoperatively. The ileostomy is working without problem. His incisions are healing without any drainage. He is not having any increased urination or dysuria. He has no shortness of breath or cough. He has had a little bit of runny nose and mild sore throat. No ear pain. He denies any swelling in the legs or arms or having any shortness of breath. No pain in the extremities. He does have a little bit of low back pain but had that even prior to the surgery. He did have an epidural during the surgery. He did have a urinary catheter. He was feeling fine up until this afternoon. Denies any headache. No vision changes. No rashes or bruising. Allergies: Uncoded Allergies: hayfever (Allergy, Unknown, 03/14/18) Home Meds Active Scripts Oxycodone/Acetaminophen (OXYCODONE/ACETAMINOPHEN 5MG/325 MG) 5 Mg/325 Mg Tab, 1- 2 TAB PO Q6H Y for PAIN, #20 TAB 0 Refills Prov:GISELE OLVERA MD 04/12/18 Reviewed Nurses Notes: Yes Hx Smoking: No Smoking Status: Never Smoker Hx Alcohol Use: No Constitutional Vital Sign - Last 24 Hours 04/15/18 04/15/18 04/15/18 04/15/18 22:26 22:30 22:52 23:00 Temp 102.0 Pulse 106 97 Resp 24 25 B/P (MAP) 113/76 113/76 (88) 94/88 (90) Pulse Ox 90 90 04/15/18 04/15/18 04/15/18 04/15/18 23:07 23:22 23:30 23:52 Pulse 98 ??? 91 Resp 11 23 B/P (MAP) 109/67 (81) Pulse Ox 92 93 91 04/16/18 04/16/18 04/16/18 04/16/18 00:00 00:15 00:30 00:45 Pulse ??? 97 91 Resp 15 11 B/P (MAP) ???/??? (1665) 04/16/18 04/16/18 04/16/18 04/16/18 01:30 01:45 01:48 01:53 Temp 102.0 Pulse 98 98 94 Resp 21 27 15 B/P (MAP) 114/71 (85) Pulse Ox 92 04/16/18 04/16/18 04/16/18 04/16/18 02:00 02:08 02:23 02:30 Pulse 98 99 Resp 30 18 B/P (MAP) 109/70 (83) 104/71 (82) Pulse Ox 90 91 Physical Exam General Appearance: The patient is alert. No acute distress. Eyes: Pupils are equal, round. Reactive to light. No pallor, injection or icterus. Extraocular movements are intact. ENT: Mucous membranes are moist. Normal oral mucosa. Posterior oropharynx has only very mild erythema. Normal tympanic membranes and canals. Neck: Supple and non tender. No lymphadenopathy. Respiratory: Breathing easily and unlabored. Lungs are clear to auscultation. Cardiovascular: Regular rate and rhythm. No murmurs, gallops or rubs. Normal capillary refill. No edema. Normal peripheral pulses. Gastrointestinal: Abdomen is soft and non tender other than right over the umbilicus, small hernia there. Nondistended. No rebound. Normal active bowel sounds. Ileostomy looks to be healthy. Draining greenish drainage. No costovertebral angle tenderness with percussion. Neurological: Alert and oriented x3. No focal neurologic deficits Skin: Warm and dry. No rashes. Incisions healing without drainage. Musculoskeletal: Extremities are nontender. No pain with palpation of the muscles. No palpable chords. Full range of motion. No tenderness in palpation of the cervical, thoracic and lumbar spine. DIFFERENTIAL DIAGNOSIS: After history and physical exam, differential diagnosis was considered for a patient with fever postoperatively a week after partial colectomy. History and physical does not really lead me in any particular direction looking for source of the fever. We will look for the typical problems such as wound infections or postsurgical abscesses, pneumonia as/ pulmonary infectious process, urinary infections, and there does not seem to be any evidence of a blood clot in legs or lungs at this point. Medical Decision Making Data Points Result Diagram: 04/15/188 04/15/188 Laboratory Hematology Test 04/15/18 22:26 04/15/18 22:48 Urine Color Colorless Urine Clarity Clear Urine pH 6.0 pH (4.8-9.5) Urine Specific [place] 1.001 Urine Protein Negative mg/dL (NEGATIVE) Urine Glucose (UA) Negative mg/dL (NEGATIVE) Urine Ketones Negative mg/dL (NEGATIVE) Urine Blood Negative (NEGATIVE) Urine Nitrite Negative (NEGATIVE) Urine Bilirubin Negative (NEGATIVE) Urine Urobilinogen Negative mg/dL (0.2-1.9) Urine Leukocyte Esterase Negative (NEGATIVE) Urine RBC None /HPF (0-2/HPF) Urine WBC None /HPF (0-5/HPF) Urine Squamous Epithelial Cells None /LPF (</=FEW) Urine Bacteria Negative /HPF (NONE-FEW) Urine Mucus None /HPF (NONE-FEW) Red Blood Count 4.52 M/uL (4.00-5.60) Mean Corpuscular Volume 71.0 fL (80.0-96.0) Mean Corpuscular Hemoglobin 24.1 pg (26.0-33.0) Mean Corpuscular Hemoglobin Concent 33.9 g/dL (32.0-36.0) Red Cell Distribution Width 16.9 % (11.5-14.5) Mean Platelet Volume 8.4 fL (7.2-11.1) Neutrophils (%) (Auto) 83.7 % (39.4-72.5) Lymphocytes (%) (Auto) 5.4 % (17.6-49.6) Monocytes (%) (Auto) 8.8 % (4.1-12.4) Eosinophils (%) (Auto) 1.2 % (0.4-6.7) Basophils (%) (Auto) 0.9 % (0.3-1.4) Nucleated RBC Relative Count (auto) 0.0 /100WBC Neutrophils # (Auto) 6.9 K/uL (2.0-7.4) Lymphocytes # (Auto) 0.4 K/uL (1.3-3.6) Monocytes # (Auto) 0.7 K/uL (0.3-1.0) Eosinophils # (Auto) 0.1 K/uL (0.0-0.5) Basophils # (Auto) 0.1 K/uL (0.0-0.1) Nucleated RBC Absolute Count (auto) 0.00 K/uL Erythrocyte Sedimentation Rate 65 mm/HOUR (0-20) Sodium Level 130 mmol/L (137-145) Potassium Level 4.1 mmol/L (3.5-5.0) Chloride Level 96 mmol/L (98-107) Carbon Dioxide Level 22 mmol/L (22-30) Blood Urea Nitrogen 9 mg/dl (9-21) Creatinine 0.70 mg/dl (0.66-1.25) Glomerular Filtration Rate Calc > 60.0 Random Glucose 114 mg/dl (75-110) Calcium Level 9.3 mg/dl (8.4-10.2) Total Bilirubin 0.6 mg/dl (0.2-1.3) Aspartate Amino Transf (AST/SGOT) 21 U/L (0-35) Alanine Aminotransferase (ALT/SGPT) 28 U/L (0-56) Alkaline Phosphatase 57 U/L (0-126) C-Reactive Protein 4.8 mg/dl (<1.0) Total Protein 6.5 g/dl (6.3-8.2) Albumin 3.8 g/dl (3.5-5.0) Chemistry Test 04/15/18 22:26 04/15/18 22:48 Urine Color Colorless Urine Clarity Clear Urine pH 6.0 pH (4.8-9.5) Urine Specific [place] 1.001 Urine Protein Negative mg/dL (NEGATIVE) Urine Glucose (UA) Negative mg/dL (NEGATIVE) Urine Ketones Negative mg/dL (NEGATIVE) Urine Blood Negative (NEGATIVE) Urine Nitrite Negative (NEGATIVE) Urine Bilirubin Negative (NEGATIVE) Urine Urobilinogen Negative mg/dL (0.2-1.9) Urine Leukocyte Esterase Negative (NEGATIVE) Urine RBC None /HPF (0-2/HPF) Urine WBC None /HPF (0-5/HPF) Urine Squamous Epithelial Cells None /LPF (</=FEW) Urine Bacteria Negative /HPF (NONE-FEW) Urine Mucus None /HPF (NONE-FEW) White Blood Count 8.2 k/uL (4.5-11.0) Red Blood Count 4.52 M/uL (4.00-5.60) Hemoglobin 10.9 g/dL (14.0-18.0) Hematocrit 32.1 % (42.0-52.0) Mean Corpuscular Volume 71.0 fL (80.0-96.0) Mean Corpuscular Hemoglobin 24.1 pg (26.0-33.0) Mean Corpuscular Hemoglobin Concent 33.9 g/dL (32.0-36.0) Red Cell Distribution Width 16.9 % (11.5-14.5) Platelet Count 372 K/uL (150-450) Mean Platelet Volume 8.4 fL (7.2-11.1) Neutrophils (%) (Auto) 83.7 % (39.4-72.5) Lymphocytes (%) (Auto) 5.4 % (17.6-49.6) Monocytes (%) (Auto) 8.8 % (4.1-12.4) Eosinophils (%) (Auto) 1.2 % (0.4-6.7) Basophils (%) (Auto) 0.9 % (0.3-1.4) Nucleated RBC Relative Count (auto) 0.0 /100WBC Neutrophils # (Auto) 6.9 K/uL (2.0-7.4) Lymphocytes # (Auto) 0.4 K/uL (1.3-3.6) Monocytes # (Auto) 0.7 K/uL (0.3-1.0) Eosinophils # (Auto) 0.1 K/uL (0.0-0.5) Basophils # (Auto) 0.1 K/uL (0.0-0.1) Nucleated RBC Absolute Count (auto) 0.00 K/uL Erythrocyte Sedimentation Rate 65 mm/HOUR (0-20) Glomerular Filtration Rate Calc > 60.0 Calcium Level 9.3 mg/dl (8.4-10.2) Total Bilirubin 0.6 mg/dl (0.2-1.3) Aspartate Amino Transf (AST/SGOT) 21 U/L (0-35) Alanine Aminotransferase (ALT/SGPT) 28 U/L (0-56) Alkaline Phosphatase 57 U/L (0-126) C-Reactive Protein 4.8 mg/dl (<1.0) Total Protein 6.5 g/dl (6.3-8.2) Albumin 3.8 g/dl (3.5-5.0) Urinalysis Test 04/15/18 22:26 Urine Color Colorless Urine Clarity Clear Urine pH 6.0 pH (4.8-9.5) Urine Specific [place] 1.001 Urine Protein Negative mg/dL (NEGATIVE) Urine Glucose (UA) Negative mg/dL (NEGATIVE) Urine Ketones Negative mg/dL (NEGATIVE) Urine Blood Negative (NEGATIVE) Urine Nitrite Negative (NEGATIVE) Urine Bilirubin Negative (NEGATIVE) Urine Urobilinogen Negative mg/dL (0.2-1.9) Urine Leukocyte Esterase Negative (NEGATIVE) Urine RBC None /HPF (0-2/HPF) Urine WBC None /HPF (0-5/HPF) Urine Squamous Epithelial Cells None /LPF (</=FEW) Urine Bacteria Negative /HPF (NONE-FEW) Urine Mucus None /HPF (NONE-FEW) EKG/Imaging Imaging CHEST PA AND LAT COMPARISONS: 2 view chest dated July 23, 2015 ADDITIONAL PERTINENT HISTORY: Fever, postop 1 week. FINDINGS: Cardiomediastinal silhouette: Negative. Pulmonary vasculature: Negative. Lung van: Negative. Pleural spaces: Negative. Osseous structures: Stable mild compression deformity involving the mid thoracic spine Surrounding soft tissues: Negative. IMPRESSION: No evidence of acute cardiopulmonary disease. Report Dictated By: Jw Kurtz MD at 04/15/2018 11:41 PM COMPUTED TOMOGRAPHY ABDOMEN AND PELVIS WITH INTRAVENOUS CONTRAST DATE OF EXAM: 04/15/2018 11:51 PM INDICATION: Fever, recent colectomy, had epidural as well. COMPARISON: 03/17/2018 CT abdomen and pelvis, pelvis MRI 03/22/2018. TECHNIQUE: Contrast enhanced abdomen and pelvis CT performed during the injection of 85 ml of Isovue 370. Sagittal and coronal reconstructions were performed. One of the following dose optimization techniques was utilized in the performance of this exam: Automated exposure control; adjustment of the mA and/or kV according to the patient's size; or use of an iterative reconstruction technique. Specific details can be referenced in the facility's radiology CT exam operational policy. FINDINGS: Lung bases: Mild scarring/atelectasis. Liver and hepatic vasculature: Normal. Gallbladder and bile ducts: Normal. Spleen: Small calcification along the anterior inferior aspect of the spleen may be related to prior infection, trauma or possibly adipose tissue infarct. No acute abnormality or suspicious lesion. Pancreas: Normal. Adrenals: Normal. Kidneys, ureters and bladder: Kidneys are grossly normal. Mild dilation of the ureters may be related to moderate distention of the urinary bladder. Air within the urinary bladder likely related to recent instrumentation. Amorphous soft tissue density along the anterior aspect of the urinary bladder likely represents blood products related to the recent surgery. Retroperitoneum and aorta: Nonaneurysmal. Shotty para-aortic lymph nodes are likely reactive. GI tract, mesentery and peritoneum: Patient is had a resection of the rectum with coloanal anastomosis, as well as the formation of a right mid abdominal loop ileostomy. In the presacral space, there is a fluid collection that appears partially organized, measuring approximately 5.3 x 2.4 cm in the axial plane and extending 9.9 cm craniocaudal. No evidence of obstruction. No pneumatosis or pneumoperitoneum Prostate and seminal vesicles: Unremarkable. Bones and soft tissues: Ostomy as above. Probable trocar sites in the anterior abdominal wall as well as a small amount of scattered soft tissue gas, likely postoperative. Small to moderate size fat containing umbilical hernia. IMPRESSION: 1. Interval resection of the rectum with associated coloanal anastomosis, and right mid abdominal loop ileostomy formation. 2. Presacral fluid that may be showing early organization. This may be within postoperative limits, but underlying infection is not excluded. 3. Moderately distended urinary bladder, likely resulting in mild dilation of the ureters. There is also a small amount gas in the urinary bladder that may be due to recent instrumentation. Correlate with urinalysis. 4. Amorphous soft tissue along the anterior aspect of the urinary bladder most likely represents resolving blood products related to recent surgery. Recommend attention to this on follow-up. Report Dictated By: Amador Millan MD at 04/16/2018 12:41 AM L-SPINE W CONTRAST COMPARISONS: None. ADDITIONAL PERTINENT HISTORY: None. TECHNIQUE: Multiple axial images were obtained through the lumbar spine with IV contrast. Coronal and sagittal reformatted images were obtained off the axial source data. One of the following dose optimization techniques was utilized in the performance of this exam: Automated exposure control; adjustment of the mA and/or kV according to the patient's size; or use of an iterative reconstruction technique. Specific details can be referenced in the facility's radiology CT exam operational policy. Contrast: 85 mL of Isovue-370. FINDINGS: Vertebral body heights and alignment: Negative. Vertebral bodies: Negative. Disc spaces: Circumferential disc bulging at multiple levels without significant canal or neural foraminal narrowing.. Thoraco-lumbar junction: Negative. Surrounding soft tissues: <Continued findings of a presacral fluid collection with previous surgery involving the rectum. This has been further detailed on the CT of the abdomen and pelvis reported separately same day. Visualized bony pelvis: Negative. Pathologic enhancement: None IMPRESSION: 1. No acute process involving the lumbar spine. 2. Continued findings of a presacral fluid collection which could be postoperative or could represent a developing abscess as detailed on the CT of the abdomen and pelvis reported same day. Report Dictated By: Jw Kurtz MD at 04/16/2018 1:55 AM ED Course/Re-evaluation Clinical Indication for ER IV: Hydration, IV Access ED Course Initial evaluation showed no definitive source for fever. Labs showed a normal white count with a slight left shift. Metabolic panel showed decrease sodium and chloride as noted. ESR and CRP were significantly elevated. Normal urinalysis and normal chest x-ray. CT scan of the abdomen and pelvis were done, showing a presacral collection that was thought to be possible early abscess. Reformat of the lumbar spine was negative. Discussed the case with Dr. Fajardo. Admitted here with IV Zosyn and will re- evaluate this morning to decide if a percutaneous drain is needed. Decision to Disposition Date: Apr 16, 2018 Decision to Disposition Time: 02:49 Depart Departure Latest Vital Signs Vital Signs Date Time Temp Pulse Resp B/P (MAP) Pulse Ox O2 Delivery O2 Flow Rate FiO2 04/16/18 02:30 104/71 (82) 04/16/18 02:23 99 18 91 04/16/18 01:48 102.0 Impression: Primary Impression: Fever postop Additional Impressions: Ileostomy in place Rectal cancer S/P partial colectomy Condition: Improved Disposition: Admitted from ER Referrals: GISELE ROPER MD (PCP) Problem Qualifiers MICHEAL RANGEL MD Apr 15, 2018 22:59
[2018-04-15 23:09] LABS: PLATELET COUNT, AUTOMATED 372 K/uL (150-450)
--- NOTE | 2018-04-15 23:46 | RADIOLOGY IMAGING REPORT ---
FAC[place] [facility] [place] NAME: Ellis Nuñez : 1965 MR: [id number] V: [id number] EXAM DATE: ORDERING PHYSICIAN: MICHEAL RANGEL TECHNOLOGIST: [place] [facility] [place]: Ellis Nuñez : 1965 Visit/Account:[id number] Date of Sevice: 04/15/2018 CHEST PA AND LAT COMPARISONS: 2 view chest dated July 23, 2015 ADDITIONAL PERTINENT HISTORY: Fever, postop 1 week. FINDINGS: Cardiomediastinal silhouette: Negative. Pulmonary vasculature: Negative. Lung van: Negative. Pleural spaces: Negative. Osseous structures: Stable mild compression deformity involving the mid thoracic spine Surrounding soft tissues: Negative. IMPRESSION: No evidence of acute cardiopulmonary disease. Report Dictated By: Jw Kurtz MD at 04/15/2018 11:41 PM Report E-Signed By: Jw Kurtz MD at 04/15/2018 11:42 PM WSN:[id number]
[2018-04-15] MEDS ORDERED: NS(*) 0.9% 1000 ML BAG 1,000 ML IV ONE (23:55)
[2018-04-16] MEDS ORDERED: IOPAMIDOL 76% 100 ML INFUS BTL 100 ML ONE (00:10)
--- NOTE | 2018-04-16 00:57 | RADIOLOGY IMAGING REPORT ---
FACILITY: [facility] PATIENT NAME: Ellis Nuñez : 1965 MR: [id number] V: [id number] EXAM DATE: ORDERING PHYSICIAN: MICHEAL RANGEL TECHNOLOGIST: Location: [facility] - [place] Patient: Ellis Nuñez : 1965 Visit/Account:[id number] Date of Sevice: 04/15/2018 COMPUTED TOMOGRAPHY ABDOMEN AND PELVIS WITH INTRAVENOUS CONTRAST DATE OF EXAM: 04/15/2018 11:51 PM INDICATION: Fever, recent colectomy, had epidural as well. COMPARISON: 03/17/2018 CT abdomen and pelvis, pelvis MRI 03/22/2018. TECHNIQUE: Contrast enhanced abdomen and pelvis CT performed during the injection of 85 ml of Isovue 370. Sagittal and coronal reconstructions were performed. One of the following dose optimization te chniques was utilized in the performance of this exam: Automated exposure control; adjustment of the mA and/or kV according to the patient's size; or use of an iterative reconstruction technique. Spec [facility] details can be referenced in the facility's radiology CT exam operational policy. FINDINGS: Lung bases: Mild scarring/atelectasis. Liver and hepatic vasculature: Normal. Gallbladder and bile ducts: Normal. Spleen: Small calcification along the anterior inferior aspect of the spleen may be related to prior infection, trauma or possibly adipose tissue infarct. No acute abnormality or suspicious lesion. Pancreas: Normal. Adrenals: Normal. Kidneys, ureters and bladder: Kidneys are grossly normal. Mild dilation of the ureters may be relat ed to moderate distention of the urinary bladder. Air within the urinary bladder likely related to r ecent instrumentation. Amorphous soft tissue density along the anterior aspect of the urinary bladde r likely represents blood products related to the recent surgery. Retroperitoneum and aorta: Nonaneurysmal. Shotty para-aortic lymph nodes are likely reactive. GI tract, mesentery and peritoneum: Patient is had a resection of the rectum with coloanal anastomos is, as well as the formation of a right mid abdominal loop ileostomy. In the presacral space, there is a fluid collection that appears partially organized, measuring approximately 5.3 x 2.4 cm in the a xial plane and extending 9.9 cm craniocaudal. No evidence of obstruction. No pneumatosis or pneumop eritoneum Prostate and seminal vesicles: Unremarkable. Bones and soft tissues: Ostomy as above. Probable trocar sites in the anterior abdominal wall as we ll as a small amount of scattered soft tissue gas, likely postoperative. Small to moderate size fat containing umbilical hernia. IMPRESSION: 1. Interval resection of the rectum with associated coloanal anastomosis, and right mid abdominal lo op ileostomy formation. 2. Presacral fluid that may be showing early organization. This may be within postoperative limits, but underlying infection is not excluded. 3. Moderately distended urinary bladder, likely resulting in mild dilation of the ureters. There is also a small amount gas in the urinary bladder that may be due to recent instrumentation. Correlate with urinalysis. 4. Amorphous soft tissue along the anterior aspect of the urinary bladder most likely represents res olving blood products related to recent surgery. Recommend attention to this on follow-up. Report Dictated By: Amador Millan MD at 04/16/2018 12:41 AM Report E-Signed By: Amador Millan MD at 04/16/2018 12:53 AM WSN:[id number]
--- NOTE | 2018-04-16 02:04 | RADIOLOGY IMAGING REPORT ---
FACILITY: [facility] - [place] PATIENT NAME: Ellis Nuñez : 1965 MR: [id number] V: [id number] EXAM DATE: ORDERING PHYSICIAN: MICHEAL RANGEL TECHNOLOGIST: Location: [facility] Patient: Ellis Nuñez : 1965 Visit/Account:[id number] Date of Sevice: 04/16/2018 L-SPINE W CONTRAST COMPARISONS: None. ADDITIONAL PERTINENT HISTORY: None. TECHNIQUE: Multiple axial images were obtained through the lumbar spine with IV contrast. Coronal a nd sagittal reformatted images were obtained off the axial source data. One of the following dose op timization techniques was utilized in the performance of this exam: Automated exposure control; adjus tment of the mA and/or kV according to the patient's size; or use of an iterative reconstruction doyle hnique. Specific details can be referenced in the facility's radiology CT exam operational policy. Contrast: 85 mL of Isovue-370. FINDINGS: Vertebral body heights and alignment: Negative. Vertebral bodies: Negative. Disc spaces: Circumferential disc bulging at multiple levels without significant canal or neural fora kris narrowing.. Thoraco-lumbar junction: Negative. Surrounding soft tissues: <Continued findings of a presacral fluid collection with previous surgery involving the rectum. This has been further detailed on the CT of the abdomen [facility]. Visualized bony pelvis: Negative. Pathologic enhancement: None IMPRESSION: 1. No acute process involving the lumbar spine. 2. Continued findings of a presacral fluid collection which could be postoperative or could represent a developing abscess as detailed on the CT of the abdomen and pelvis reported same day. Report Dictated By: Jw Kurtz MD at 04/16/2018 1:55 AM Report E-Signed By: Jw Kurtz MD at 04/16/2018 2:00 AM WSN:[id number]
[2018-04-16] MEDS ORDERED: ACETAMINOPHEN 500 MG TAB PO ONE (02:40)
[2018-04-16 03:27] VITALS: BP 117/72
[2018-04-16] MEDS: KCL/D1/2NS 20 MEQ 1000 ML 1,000 ML IV SCH ×3 (04:30→23:50)
[2018-04-16] MEDS ORDERED: ONDANSETRON 4 MG/2 ML VIAL IVP PRN (04:35)
[2018-04-16] MEDS ORDERED: MORPHINE 2 MG/ML SYR IVP PRN (04:35)
[2018-04-16] MEDS: PIPERACILLIN/TAZO*3.375GM VIAL 3.375 GM in NS(*) 0.9% 100 ML ADDVANT BAG 100 ML IVPB SCH ×4 (06:31→23:48)
[2018-04-16] MEDS ORDERED: NS 0.9% IR ONE (06:39)
[2018-04-16] MEDS ORDERED: NS(*) 0.9% 500 ML BAG 500 ML ONE (06:39)
[2018-04-16 07:50] VITALS: BP 109/71
[2018-04-16 10:48] VITALS: BP 109/66
[2018-04-16] MEDS: ACETAMINOPHEN 500 MG TAB PO PRN ×2 (11:42→18:09)
[2018-04-16] MEDS ORDERED: oxyCODONE HCL 5 MG CAP PO PRN (12:10)
[2018-04-16] MEDS ORDERED: IBUPROFEN 600 MG TAB PO PRN (12:10)
[2018-04-16] MEDS: ENOXAPARIN 40 MG/0.4ML SYR SC SCH (12:37)
--- NOTE | 2018-04-16 12:44 | Gen Surgery History & Physical ---
History of Present Illness Chief Complaint Fever in post op period History of Present Illness 53 y/o male s/p robotic LAR with EEA anastomosis and diverting ileostomy due to distal nature. Did have epidural and Sullivan at time of surgery. Post op course was unremarkable. Arrives into the [facility] ED with fever to 102.2. No other sxs No abd pain; ileostomy functional. No N/V. + Chills. No leg pain or perirectal pain. No others ill (initially reported) but later found out that child has been ill with a URI sxs and fever that was brought home from daycare. Labs were unremarkable CXR clear CT scan was done with the findings of small, non rim enhancing fluid in the dependent position of the pelvis. No other significant findings noted. 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 Lives in [place] TOB: None ETOH: None Drugs: None History Home Meds Active Scripts Oxycodone/Acetaminophen (OXYCODONE/ACETAMINOPHEN 5MG/325 MG) 5 Mg/325 Mg Tab, 1- 2 TAB PO Q6H Y for PAIN, #20 TAB 0 Refills Prov:GISELE OLVERA MD 04/12/18 Allergies: Uncoded Allergies: hayfever (Allergy, Unknown, 03/14/18) Patient History: FH: CHF (congestive heart failure) FATHER, , Age:76 FH: COPD (chronic obstructive pulmonary disease) FATHER, , Age:76 MOTHER, , Age:82 FH: asthma MOTHER, , Age:82 FH: atrial fibrillation MOTHER, , Age:82 FH: depression BROTHER OR SISTER BROTHER OR SISTER FH: heart disease BROTHER OR SISTER BROTHER OR SISTER Hypotension MOTHER, , Age:82 Review of Systems All Systems Reviewed/Normal: Yes, Except as Noted Constitutional: Chills, No Fever, No Weight Loss, No Weight Gain, No Night Sweats Neurological: No Syncope, No Confusion, No Weakness Eyes: No Vision Change, No Loss of Vision ENT: No Sore Throat Cardiovascular: No Chest Pain, No Palpitations, No Orthostatic Hypotension Respiratory: No Shortness of Breath, No Cough Gastrointestinal: No Nausea, No Vomiting, Diarrhea, No Hematemesis, No Hematochezia, No Abdominal Pain Genitourinary: No Dysuria, No Hematuria, No Urinary Incontinence Musculoskeletal: No Pain, No Impaired Mobility Psychiatric: No Depression, No Anxiety Exam General Appearance: Alert, Awake, No Acute Distress, Other (102.2) Neuro: No Gross deficits Eyes: PERRLA, Other (EOMI) ENT: Normal, Moist Mucous Membranes, Oropharynx Clear Cardiovascular: Normal Rhythm & Peripheral Pulses, Regular Rate and Rhythm Respiratory: No Respiratory Distress, Clear to Auscultation GI: Abd Soft and Non-Tender Lymph: Cervical Nodes Benign, No Adenopathy Musculoskeletal: No Weakness/Pain Extremities: Warm, Pulses, Perfused, No Edema Integumentary: Skin Intact without Lesion / Mass Psych: Alert & Oriented X3, Appropriate Mood & Affect Medical Decision Making Data Points Result Diagram: 04/15/18 2248 04/15/188 blood and urine cxs pendings EKG / Imaging Imaging COMPUTED TOMOGRAPHY ABDOMEN AND PELVIS WITH INTRAVENOUS CONTRAST DATE OF EXAM: 04/15/2018 11:51 PM INDICATION: Fever, recent colectomy, had epidural as well. COMPARISON: 03/17/2018 CT abdomen and pelvis, pelvis MRI 03/22/2018. TECHNIQUE: Contrast enhanced abdomen and pelvis CT performed during the injection of 85 ml of Isovue 370. Sagittal and coronal reconstructions were performed. One of the following dose optimization techniques was utilized in the performance of this exam: Automated exposure control; adjustment of the mA and/or kV according to the patient's size; or use of an iterative reconstruction technique. Specific details can be referenced in the facility's radiology CT exam operational policy. FINDINGS: Lung bases: Mild scarring/atelectasis. Liver and hepatic vasculature: Normal. Gallbladder and bile ducts: Normal. Spleen: Small calcification along the anterior inferior aspect of the spleen may be related to prior infection, trauma or possibly adipose tissue infarct. No acute abnormality or suspicious lesion. Pancreas: Normal. Adrenals: Normal. Kidneys, ureters and bladder: Kidneys are grossly normal. Mild dilation of the ureters may be related to moderate distention of the urinary bladder. Air within the urinary bladder likely related to recent instrumentation. Amorphous soft tissue density along the anterior aspect of the urinary bladder likely represents blood products related to the recent surgery. Retroperitoneum and aorta: Nonaneurysmal. Shotty para-aortic lymph nodes are likely reactive. GI tract, mesentery and peritoneum: Patient is had a resection of the rectum with coloanal anastomosis, as well as the formation of a right mid abdominal loop ileostomy. In the presacral space, there is a fluid collection that appears partially organized, measuring approximately 5.3 x 2.4 cm in the axial plane and extending 9.9 cm craniocaudal. No evidence of obstruction. No pneumatosis or pneumoperitoneum Prostate and seminal vesicles: Unremarkable. Bones and soft tissues: Ostomy as above. Probable trocar sites in the anterior abdominal wall as well as a small amount of scattered soft tissue gas, likely postoperative. Small to moderate size fat containing umbilical hernia. IMPRESSION: 1. Interval resection of the rectum with associated coloanal anastomosis, and right mid abdominal loop ileostomy formation. 2. Presacral fluid that may be showing early organization. This may be within postoperative limits, but underlying infection is not excluded. 3. Moderately distended urinary bladder, likely resulting in mild dilation of the ureters. There is also a small amount gas in the urinary bladder that may be due to recent instrumentation. Correlate with urinalysis. 4. Amorphous soft tissue along the anterior aspect of the urinary bladder most likely represents resolving blood products related to recent surgery. Recommend attention to this on follow-up. Report Dictated By: Amador Millan MD at 04/16/2018 12:41 AM Pre-Admit Course Medical Record Review: Yes Assessment and Plan Problems: (1) Fever postop Status: Acute Assessment & Plan: 04/16/18: Fever to 102.2; Blood cxs pending. UA was negative; On Zosyn at this time. 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 Assessment & Plan: 04/16/18: Monitor stool output to ensure adequate hydration; determine need for motility agents to slow down volume if high output > 2000/day (3) Rectal cancer Status: Chronic Assessment & Plan: S/P partial colectomy one week ago (4) Cardiac murmur Status: Chronic Assessment & Plan: 04/16/18: No prior murmur known to patient; Will review prior medical records Time Spent: > 30 min (75 minutes spent with H&P, care plan discussion with pt and family; image review, consultation with radiologist Dr Galvan ; discussion with Dr Olvera) Venous Thromboembolism VTE Risk Physician Assess for VTE Risk: Yes Patient's VTE Risk: High VTE Diagnostic Test 2 Days Prior to Admit: No Antithrombotics Is Pt On Any Antithrombotics?: Yes (SCDs and Lovenox) CHOCO UREÑA MD Apr 16, 2018 12:41
[2018-04-16 13:00] VITALS: Ht 167.6 cm; Wt 72.7 kg
[2018-04-16 16:34] VITALS: BP 111/67
[2018-04-16 20:28] VITALS: BP 111/67
[2018-04-16 23:42] VITALS: BP 95/61
[2018-04-17] MEDS: ACETAMINOPHEN 500 MG TAB PO PRN (00:33)
[2018-04-17 05:23] LABS: PLATELET COUNT, AUTOMATED 307 K/uL (150-450)
[2018-04-17 05:32] VITALS: BP 91/62
[2018-04-17] MEDS: PIPERACILLIN/TAZO*3.375GM VIAL 3.375 GM in NS(*) 0.9% 100 ML ADDVANT BAG 100 ML IVPB SCH (05:36)
[2018-04-17 07:10] VITALS: BP 92/58
--- NOTE | 2018-04-17 10:12 | General Surgery Progress Note ---
Subjective Progress Notes Subjective Feels well; possible upper resp sxs; No abd pain, Deena diet; Ileostomy output 1700 Patient Complains of: Neurological: No: Syncope, Confusion, Weakness Cardiovascular: No: Chest Pain, Orthostatic Hypotension Respiratory: Congestion, No: Cough, Shortness of Breath, Wheezing Gastrointestinal: Flatus, Bowel Movement, No Nausea, No Vomiting Genitourinary: No Dysuria Musculoskeletal: No: Impaired Mobility Physical Exam Vital Signs Date Time Temp Pulse Resp B/P (MAP) Pulse Ox O2 Delivery O2 Flow Rate FiO2 04/17/18 08:56 96 04/17/18 07:27 Room Air 04/17/18 07:10 97.7 70 16 92/58 (69) 1.0 Intake and Output 04/18/18 07:00 Intake Total 600 ml Output Total 1325 ml Balance -725 ml Intake Oral 600 ml Output Urine Total 800 ml Stool Total 525 ml General Appearance: Alert, Awake, No Acute Distress, Other (Tmax 100.8) Neuro: No Gross deficits Eyes: PERRLA, Other (EOMI) ENT: Moist Mucous Membranes Cardiovascular: Normal Rhythm & Peripheral Pulses, Regular Rate and Rhythm, No Edema Respiratory: No Respiratory Distress, Clear to Auscultation GI: Soft and Non-Tender, Other (Right ileostomy- functional/pink) : No CVA Tenderness Musculoskeletal: No Weakness/Pain Extremities: Warm, Pulses, Perfused, No Edema Integumentary: Skin Intact without Lesion / Mass Psych: Alert & Oriented X3, Appropriate Mood & Affect Result Diagram: 04/17/18 0512 04/15/18 2248 Mild leukocytosis of unknown etiology Blood Cxs: No growth since admit; confirmed with the lab at 1000 hours Antibiotic Date: Apr 16, 2018 (On Zosyn since admission) Monitor Interpretation: Normal Sinus Rhythm Assessment and Plan Problems: (1) Fever postop Status: Acute Assessment & Plan: 04/16/18: Fever to 102.2; Blood cxs pending. UA was negative; On Zosyn at this time. CT scan with benign appearing presacral fluid- expected - no rim enhancing element; Reviewed with the radiologist Dr Orion Galvan at [facility]; lactate 1.0; hydrated; Tylenol for fever; May be respiratory viral (child sick at home) although CXR neg 04/17/18: Temp to 100.8. WBC 11.0; Blood cxs neg to date; Remains on Zosyn. PLAN : change to Augmentin and consider D/C to home later today with 5 days oral ABX. Temperature recordings at home. 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 No prior documentation of a murmur in our record hx. ECHO EXAM DATE: [id number] ORDERING PHYSICIAN: DAPHNE LOU EXAMINATION:TWO-DIMENSIONAL ECHOCARDIOGRAPH REASON: CHEST PAIN IN ER. 1. Normal left ventricular ejection fraction of 70% with a grade 1/4 decrease in diastolic function consistent with age. 2. There are normal chamber sizes. 3. A trace of mitral, tricuspid and pulmonic insufficiency with normal right ventricular systolic pressures. 4. No wall motion abnormalities are noted. No atrioseptal or ventricular septal defects are noted and no pericardial effusion is noted. Estimated right ventricular systolic pressure is 29 mmHg Time Spent: > 30 min (hx, exam, counseling, education on dehydration, care plan , documentation) Exam Sepsis Risk: No Definite Risk CHOCO UREÑA MD Apr 17, 2018 10:10
[2018-04-17] MEDS ORDERED: LOPERAMIDE HCL 2 MG CAP PO ONE (10:15)
[2018-04-17] MEDS ORDERED: LOPE2CAP15 PO (10:23)
[2018-04-17] MEDS ORDERED: BANA1PAC PO (10:23)
[2018-04-17] MEDS ORDERED: AMOX-559 PO (10:23)
[2018-04-17] MEDS ORDERED: LOPERAMIDE HCL 2 MG CAP PO PRN (10:25)
[2018-04-17] MEDS: ENOXAPARIN 40 MG/0.4ML SYR SC SCH (10:55)
--- NOTE | 2018-04-17 11:16 | Hospitalist Depart ---
Discharge Summary Reason for Hosp/Final Diag: (1) Fever postop Status: Acute Hospital Course & Plan: 04/16/18: Fever to 102.2; Blood cxs pending. UA was negative; On Zosyn at this time. CT scan with benign appearing presacral fluid - expected- no rim enhancing element; Reviewed with the radiologist Dr Orion Galvan at [facility]; lactate 1.0; hydrated; Tylenol for fever; May be respiratory viral (child sick at home) although CXR neg 04/17/18: Temp to 100.8. WBC 11.0; Blood cxs neg to date; Remains on Zosyn. PLAN : change to Augmentin and consider D/C to home later today with 5 days oral ABX. Temperature recordings at home. 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 Hospital Course & Plan: 04/16/18: Monitor stool output to ensure adequate hydration; determine need for motility agents to slow down volume if high output 04/17/18: 1700 ileostomy output; will start on banana flakes and then PRN motility agent for output greater than 6793-1971/day (3) Rectal cancer Status: Chronic Hospital Course & Plan: S/P partial colectomy one week ago (4) Cardiac murmur Status: Chronic Hospital Course & Plan: 04/16/18: No prior murmur known to patient; Will review prior medical records 04/17/18: No murmur today; ECHO with trace of mitral, tricuspid and pulmonic insufficiency from 2014. No prior documentation of a murmur in our record hx. ECHO EXAM DATE: [id number] ORDERING PHYSICIAN: DAPHNE LOU EXAMINATION:TWO-DIMENSIONAL ECHOCARDIOGRAPH REASON: CHEST PAIN IN ER. 1. Normal left ventricular ejection fraction of 70% with a grade 1/4 decrease in diastolic function consistent with age. 2. There are normal chamber sizes. 3. A trace of mitral, tricuspid and pulmonic insufficiency with normal right ventricular systolic pressures. 4. No wall motion abnormalities are noted. No atrioseptal or ventricular septal defects are noted and no pericardial effusion is noted. Estimated right ventricular systolic pressure is 29 mmHg (5) Hyponatremia Status: Acute Hospital Course & Plan: 04/17/18: Admit Na level was 130 with ileostomy output increasing ; repeat Na today 136; may require home NaCl tabs in the future but will hold at this time Departure Weight (Pounds): 160 Weight (Ounces): 6.0 Result Diagram: 04/17/1851104/17/18511 Condition: Improved Discharge: Home Discharge Code Status: Full Code Treatments: Other (Antibiotics) Time Spent: > 30 min Discharge Instructions Home Meds Active Scripts Amoxicillin/Pot Clav 875-125 Mg Tab (AUGMENTIN 875-125 TABLET) 1 Each Tablet, 1 TAB PO Q12H for infection for 5 Days, #10 TAB 0 Refills Prov:CHOCO UREÑA MD 04/17/18 Banana Flakes/Tos (BANATROL PLUS POWDER PACKET) 1 Each Powd.pack, 1 EACH PO Q12H Y for DIARRHEA for 30 Days, #60 PACK 6 Refills Take one packet twice daily to help keep liquid stool thicker. If stool thickens too much and becomes more solid or the output is less than 1000 ml in a day, discontinue Prov:CHOCO UREÑA MD 04/17/18 Loperamide HCl (Imodium A-D) 2 Mg Capsule, 2 MG PO Q12H Y for DIARRHEA for 30 Days, #30 CAP 3 Refills Take one capsule every 12 hours as needed to keep ileostomy output less than 1500 ml per day. Must record daily ileostomy output. Prov:CHOCO UREÑA MD 04/17/18 Oxycodone/Acetaminophen (OXYCODONE/ACETAMINOPHEN 5MG/325 MG) 5 Mg/325 Mg Tab, 1- 2 TAB PO Q6H Y for PAIN, #20 TAB 0 Refills Prov:GISELE OLVERA MD 04/12/18 Diet: Regular Activity: As Tolerated Special Instructions: Followup with Dr Olvera on Wednesday of this week. Call his nurse on Wednesday at [phone] to make an appointment Copies to: GISELE OLVERA MD Venous Thromboembolism Antithrombotics Is Pt On Any Antithrombotics?: Yes (SCDs and Lovenox) CHOCO UREÑA MD Apr 17, 2018 10:30
== END 2018-04-17 12:28 | disposition home or self-care (01) ==
LOC: ER 22:41 → UNDOADMOB 04-16 02:31 → INTOOBSV 04-16 02:31 → MED 04-16 02:31 → UNDODISOB 04-17 12:28
PROVIDERS: ADMIT Surgery; ATTEND Surgery
DX: E87.1 Hypo-osmolality and hyponatremia (principal); R50.82 Postprocedural fever; C20 Malignant neoplasm of rectum; R01.1 Cardiac murmur, unspecified; Z93.2 Ileostomy status
CPT/HCPCS: 36415; 71046; 72132; 74177; 81001; 83605; 83735; 84100; 85025; 85651; 86140; 87040; 87088; 96360; 96372; 99283; G0378; J1650; J2543; J3480; J7030; J7050; Q9967; 82040; 82247; 82310; 82374; 82435; 82565; 82947; 84075; 84132; 84155; 84295; 84450; 84460; 84520

== ENCOUNTER 2018-04-27 14:50 | Outpatient (RCR) | payer BC ==
[2018-04-16 13:00] VITALS: BMI 25.8
[~2018-04-27 14:50] MED LIST changes: +AMOX-559 PO; +BANA1PAC PO; +LOPE2CAP15 PO
[2018-04-28] MEDS ORDERED: ACET-1966 PO (08:16)
[2018-06-08] MEDS ORDERED: ASCO-182 PO (08:03)
[2018-06-08] MEDS ORDERED: MULT1TAB64 PO (08:03)
[2018-06-10] MEDS ORDERED: OXYC-854 PO (08:32)
[2018-06-23] MEDS ORDERED: FERR-53 PO (13:38)
== END 2018-07-25 ==
LOC: RAON 14:50
PROVIDERS: ATTEND Radiology Radiation Oncology
DX: C20 Malignant neoplasm of rectum (principal)
CPT/HCPCS: 99202

== ENCOUNTER → 2018-04-29 | Outpatient (CLI) | payer BC ==
[2018-04-16 13:00] VITALS: BMI 25.8
[~2018-04-29] MED LIST changes: +ACET-1966 PO
--- NOTE | 2018-04-29 14:37 | RADIOLOGY IMAGING REPORT ---
FACILITY: [facility] PATIENT NAME: Ellis Nuñez : 1965 MR: [id number] V: [id number] EXAM DATE: ORDERING PHYSICIAN: GISELE OLVERA [place]CHNOLOG[place]: [place] [facility] [place] : 1965 Visit/Account:[id number] Date of Sevice: 04/29/2018 Exam type: CHEST PA AND LAT History: Cough Comparison: April 15, 2018. Findings: The lungs are free of acute effusions, infiltrates or edema. There is no evidence of a pneumothorax or pneumomediastinum The cardiac silhouette is normal in size. Trachea is in midline. IMPRESSION: 1. No acute cardiac pulmonary process is seen Report Dictated By: Roseline Edmondson MD at 04/29/2018 2:31 PM Report E-Signed By: Roseline Edmondson MD at 04/29/2018 2:32 PM WSN:[email or web address]
== END ==
LOC: RAD 13:38
PROVIDERS: ATTEND Surgery
DX: R05 Cough (principal)
CPT/HCPCS: 71046

== ENCOUNTER 2018-06-10 03:11 | Day surgery (SDC) | payer BC ==
[2018-04-16 13:00] VITALS: Ht 167.6 cm; Wt 70.8 kg
[~2018-06-10] VITALS: Ht 167.6 cm; Wt 70.8 kg
[~2018-06-10 03:11] MED LIST changes: +ASCO-182 PO; +MULT1TAB64 PO
[2018-06-10 06:05] VITALS: BP 113/76
[2018-06-10] MEDS ORDERED: ceFAZolin(*) 2GM/D5W 50ML 50 ML IVPB ONE (06:15)
[2018-06-10] MEDS ORDERED: MIDAZOLAM 2 MG/2 ML VIAL IVP PRN (06:15)
[2018-06-10] MEDS ORDERED: FAMOTIDINE 20 MG TAB PO ONE (06:15)
[2018-06-10] MEDS ORDERED: LIDOCAINE/SOD BICARB 8.4% SYR ID ONE (06:15)
[2018-06-10] MEDS ORDERED: NORMOSOL R SOLN(*) 1000 ML BAG 1,000 ML IV PRN (06:15)
[2018-06-10] MEDS ORDERED: ROPIVACAINE 0.5% 20 ML VIAL ONE (06:42)
[2018-06-10] MEDS ORDERED: HEPARIN SOD LCK FLSH 100 UN/ML ONE (06:42)
[2018-06-10] MEDS ORDERED: NS(*) 0.9% 10 ML VIAL 20 ML ONE (06:43)
[2018-06-10] MEDS ORDERED: ONDANSETRON 4 MG/2 ML VIAL ONE (07:04)
[2018-06-10] MEDS ORDERED: DEXAMETHASONE SOD PHOS 10MG/ML ONE (07:04)
[2018-06-10] MEDS ORDERED: LIDOCAINE MPF 1% 5 ML VIAL ONE (07:04)
[2018-06-10] MEDS ORDERED: PROPOFOL EMUL(*) 10MG/ML 20 ML 20 ML ONE (07:04)
[2018-06-10] MEDS ORDERED: fentaNYL CITR 100 MCG/2 ML AMP ONE ×2 (07:05→08:37)
[2018-06-10] MEDS ORDERED: OXYC-854 PO (08:32)
--- NOTE | 2018-06-10 08:36 | Short(Outpt) Discharge Summary ---
Discharge Summary Reason for Hosp/Final Diag: (1) Rectal cancer Status: Chronic Hospital Course & Plan: Right IJ Power Port placed without problems. Departure Discharge to: Home, Self Care Discharge Instructions Home Meds Active Scripts Oxycodone Hcl/Acet 5/325 Mg (ENDOCET 5-325 TABLET) 1 Each Tablet, 1 TAB PO Q4H PRN for PAIN, #20 TAB 0 Refills Prov:GISELE OLVERA MD 06/10/18 Reported Medications Ascorbic Acid (VITAMIN C) 500 Mg Tablet, 500 MG PO QDAY, TAB 06/08/18 Multivitamin (MULTI VITAMIN DAILY) 1 Each Tablet, 1 EACH PO QDAY 06/08/18 Acetaminophen (TYLENOL) 325 Mg Tablet, 1000 MG PO PRN, TAB 04/28/18 Diet: Regular Activity: As Tolerated Special Instructions: You may shower starting on 06/12/18, but don't immerse the incisions for 2 weeks. You may leave the incisions open to air but leave the steristrips in place until they fall off on their own. GISELE OLVERA MD Jun 10, 2018 08:36
--- NOTE | 2018-06-10 08:41 | Post Operative Progress Note ---
Post Operative Progress Note Date: Jun 10, 2018 Time: 08:37 Surgeon: Maricarmen Dictation number: [id number] Anesthesia: LMA by Dr. Chan Pre-Op Diagnosis: Rectal Cancer Post-Op Diagnosis: JESSICA Findings: None Procedure(s): Right IJ Power Port placement Specimen Removed:(May be N/A): None Complications: None Fluids: See anesthesia record Estimated Blood Loss: Minimal Date OP Note Dictated: Jun 10, 2018 Time OP Note Dictated: 08:38 GISELE OLVERA MD Jun 10, 2018 08:41
[2018-06-10 09:15] VITALS: BP 112/57
[2018-06-10 09:30] VITALS: BP 110/65
[2018-06-10 09:33] VITALS: BP 106/67
[2018-06-10 09:34] VITALS: BP 111/73
--- NOTE | 2018-06-10 10:02 | RADIOLOGY IMAGING REPORT ---
FACILITY: [facility] - [place] PATIENT NAME: Ellis Nuñez : 1965 MR: [id number] V: [id number] EXAM DATE: ORDERING PHYSICIAN: GISELE OLVERA TECHNOLOGIST: Location: [facility] [place] Patient: Ellis Nuñez : 1965 Visit/Account:[id number] Date of Sevice: 06/10/2018 Exam type: C-ARM FLUORO PORT/CATH History: CHEMO PORT PLACEMENT Comparison: None. Findings: Two portable intraoperative C arm spot views of the upper thorax demonstrate placement of a right IJ port with the distal tip projecting over the expected locations. Vena cava. The total fluoroscopy t radha was 19.5 seconds. The total continuous fluoroscopy dose was 0.52690 mGray per meter squared IMPRESSION: 1. As above Report Dictated By: Roseline Edmondson MD at 06/10/2018 9:58 AM Report E-Signed By: Roseline Edmondson MD at 06/10/2018 9:59 AM WSN:[email or web address]
--- NOTE | 2018-06-10 10:03 | RADIOLOGY IMAGING REPORT ---
FACILITY: [facility] - [place] PATIENT NAME: Ellis Nuñez : 1965 MR: [id number] V: [id number] EXAM DATE: ORDERING PHYSICIAN: GISELE OLVERA TECHNOLOGIST: Location: [facility] Patient: Ellis Nuñez : 1965 Visit/Account:[id number] Date of Sevice: 06/10/2018 Exam type: CHEST SINGLE AP History: Right IJ Power Port placement Comparison: April 29, 2018. Findings: There has been placement of a right IJ port the distal tip projects over the expected locations. Jayme a cava. No pneumothorax is seen. There is no evidence of pulmonary consolidation or pleural effusio ns. The cardiac silhouette appears normal IMPRESSION: 1. Interval placement right IJ port with the distal tip projecting over the expected location of the superior vena cava. No evidence of pneumothorax, pulmonary consolidation or pleural effusion Report Dictated By: Roseline Edmondson MD at 06/10/2018 9:59 AM Report E-Signed By: Roseline Edmondson MD at 06/10/2018 10:00 AM WSN:[email or web address]
--- NOTE | 2018-06-10 11:08 | OPERATIVE REPORT 1 ---
EVENT DATE: June 10, 2018 SURGEON: Felton Hernadez MD ANESTHESIOLOGIST: Francisco Chan MD ANESTHESIA: LMA anesthesia. PREOPERATIVE DIAGNOSIS Rectal cancer. POSTOPERATIVE DIAGNOSIS Rectal cancer. PROCEDURE PERFORMED Right IGA-PowerPort placement. COMPLICATIONS None. CONDITION Stable. ESTIMATED BLOOD LOSS Minimal. INDICATIONS This is a 53-year-old gentleman who was diagnosed with a rectal cancer and I performed a robotic low anterior resection with loop ileostomy on him with good resection margins. He has seen the oncologist and they would like to start him on chemotherapy and have requested a PowerPort to be placed to facilitate this. DESCRIPTION OF PROCEDURE The patient was brought to the operating room and placed supine on the operating table. LMA anesthesia was administered and his right shoulder, neck, and and chest were prepped and draped in sterile fashion. A timeout was completed. With the patient in Trendelenburg, I used ultrasound to identify his right internal jugular vein. I used the access needle and accessed the vein in one attempt. I threaded the wire through the needle and removed the needle. I used the C-arm fluoroscope to make sure the wire was in the superior vena cava and then I anesthetized the skin in the neck and right infraclavicular skin and then made a stab incision in the neck and made a transverse right infraclavicular incision. I dissected through the dermis and into the subcutaneous tissues in the right infraclavicular area and then created a pocket caudad to the incision. I made sure this was hemostatic and then used the tunneler and dragged the catheter from the pocket up to the stab incision in the neck and then with the patient in Trendelenburg I inserted the dilator and sheath, made sure this was positioned in the superior vena cava using the fluoroscope and then removed the dilator and wire and threaded the catheter through the sheath and removed the sheath. I then using the C-arm fluoroscope positioned the tip of the catheter in the superior vena cava just above the right atrium. I cut it to length, placed the port on the catheter, locked it in place with a locking cuff and secured the port to the underlying muscle fascia with 2-0 Nylons at the corners. I then aspirated blood and then flushed the catheter and port with normal saline and it aspirated and flushed without any problems. I then flushed the port with 5 mL of 100 units/mL of Heparinated saline and it flushed with no problems. I then took more C-arm images to confirm good positioning with no kinks or twists and it looked good. I then closed the stab incision in the neck with a single 3-0 Chromic suture and the right infraclavicular incision was closed with 3-0 Vicryl interrupted deep dermal sutures and 4-0 Monocryl running subcuticular sutures. The skin was cleaned, dried, and Steri-Strips were applied. The patient was awakened and the LMA removed. He was transported to the recovery room in stable condition having tolerated the procedure without any apparent problems. A portable chest x-ray is now pending. ABEBA
== END 2018-06-10 09:15 | disposition home or self-care (01) ==
LOC: OR 03:11
PROVIDERS: ATTEND Surgery
DX: C20 Malignant neoplasm of rectum (principal)
CPT/HCPCS: 36561; 71045; 77001; C1788; J1100; J1642; J2001; J2405; J2704; J2795; J3010; J0690

== ENCOUNTER 2018-06-14 11:00 | Outpatient (RCR) | payer BC ==
[2018-04-16 13:00] VITALS: BMI 25.8
[~2018-06-14 11:00] MED LIST changes: +OXYC-854 PO
--- NOTE | 2018-06-14 12:00 | PT INITIAL EVALUATION ---
MEDICAL DIAGNOSIS: Rectal CA TREATMENT DIAGNOSIS: Rectal CA DATE OF ONSET: 06/14/18 SUBJECTIVE: Ellis is a 53 year old male presenting to oncology rehabilitation for education and monitoring with recent diagnosis of rectal adenocarcinoma of the proximal rectum, status post low anterior resection done on the March. Additionally chest x-ray March showed two small, indeterminant pulmonary nodules. Pt is to start FOLFOX chemotherapy treatment today and has received pharmacological education from pharmacist prior to treatment. At this time pt reports no physical side effects from tumor or surgical intervention other than slight R shoulder stiffness s/p port placement. Pt reports previously having low back pain, however pain has improved following surgical intervention of tumor resection. 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 Pt intends to continue working throughout treatment. 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 OBJECTIVE: Pt's son is present with him throughout treatment and evaluation. ROM: LE ROM WFL Strength: LE MMT: Hip: flexion: B 5/5, Ext: L 5/5, R 5-/5, Abd/Add: B 5/5. Knee: flex: B 5/5, ext: L 5/5, R 5-/5. Ankle: PF/DF: 5/5 Sensation: Pt reports no change in sensation at this time Special Tests: Functional Assessment of Cancer Therapy-General (FACT-G): PWB: , SWB: , EWB: , FWB: , Total: 101/108 Mobility: ECOG Performance Status: grade 2 ASSESSMENT: Ellis shows good status following recent diagnosis and surgical intervention of rectal adenocarcinoma with metastasis to the lungs. Physical therapy is advised for this patient to maintain physical condition throughout treatment as outlined by the above listed criteria for function with ADL's and occupational status. Short Term Goals In 2 MO pt will maintain ECOG performance status of grade 2 for decreased side- effects with ongoing oncological status and maintenance of function with ADL's. In 4 MO pt will maintain FACT-G of >90 for maintenance of functional status with ADL's. In 4 MO pt will maintain ECOG performance status of grade 2 for decreased side- effects with ongoing oncological status and maintenance of function with ADL's. Patient's Goals Maintain function with ADL's with ongoing treatment for rectal cancer. PLAN: Patient to be seen for Manual Therapy/STM/MET Strengthening/condition Ice/Heat Range of Motion Spinal Stabilization Ultrasound Stretching Iontophoresis Neuromuscular Re-ed Closed Chain Program Electrical Stim Posture/Body mechanics Gait Trg/Balance Trg Biofeedback [facility]Manual T[facility] Therapeutic Activities Pelvic Floor 1x/MO for 4 Months If you have any questions, comments, or concerns about this report or plan, please contact me at . Thank you, Magda Knowles, PT, DPT, CLT MTDD
[2018-06-23] MEDS ORDERED: FERR-53 PO (13:38)
== END 2018-09-12 ==
LOC: PT 11:00
PROVIDERS: ATTEND Internal Medicine Hematology
DX: C20 Malignant neoplasm of rectum (principal); R91.1 Solitary pulmonary nodule; M25.611 Stiffness of right shoulder, not elsewhere classified
CPT/HCPCS: 97161

== ENCOUNTER → 2018-07-26 | Outpatient (RCR) | payer BC ==
[2018-04-16 13:00] VITALS: Ht 165.7 cm; Wt 76.7 kg
[2018-04-28 08:12] VITALS: BP 110/70
--- NOTE | 2018-04-28 16:19 | [facility] ONCOLOGY NOTE ---
DATE OF CONSULTATION: April 28, 2018 REFERRING PHYSICIAN MD Francisca Estrella MD, Radiation Oncologist REASON FOR CONSULTATION Evaluation and management of stage T3N0 rectal adenocarcinoma. ONCOLOGY HISTORY The patient is a 53-year-old male who presented with change in his bowel movements and rectal bleeding. He had a colonoscopy on the March, and an upper or proximal rectal mass was noted. Biopsy was done on the March, and the pathology came back positive for moderately differentiated adenocarcinoma. MSH2 was negative, MSH6 equivocal. The rest were positive. PRF mutation is negative. NRAS mutation is negative, but KRAS mutation was positive. Patient had a CT abdomen and pelvis on the March which showed asymmetric wall thickening in the mid and upper rectum. On the March, patient had a MRI of the pelvis which showed large mid and upper rectal tumor involving the lower sigmoid lesion, and it seems that the tumor was a T2 lesion by MRI of the pelvis. On the March, patient had a chest x-ray which showed two small, indeterminant pulmonary nodules. The largest was 6 mm in the left lower lobe of the lung. On the March, patient had LAR, and the pathology came back positive for positive, well- differentiated colonic adenocarcinoma, low grade, with invasion into the level of the serosa, but it did not extend into the pericolonic fat. Margins were negative. No lymphovascular invasion. Fourteen lymph nodes were negative for metastasis. Patient had CT abdomen and pelvis on the April. Both the abdomen and pelvis were seen and did not show any metastasis. PAST MEDICAL HISTORY Insignificant except for his recent rectal adenocarcinoma. PAST SURGICAL HISTORY 1. Rectal surgery for his rectal cancer. 2. Tonsillectomy. FAMILY HISTORY Father had testicular cancer. Paternal uncle had prostate cancer. Paternal cousin with leukemia. SOCIAL HISTORY The patient is with two children. 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 Denies any abuse of tobacco, alcohol, or drugs. CURRENT MEDICATIONS Tylenol p.r.n. for pain. ALLERGIES No known drug allergies. REVIEW OF SYSTEMS CONSTITUTIONAL: No appetite or weight change. No fever, chills, or sweating. No recent infection. HEENT: Ears: No tinnitus or hearing problem. Nose: He has had nasal discharge recently from a cold. Throat: No sore throat or mouth ulcers. Eyes: No diplopia or visual changes. RESPIRATORY: He has cough with expectoration which is mild from his recent cold. CARDIOVASCULAR: No chest pain, orthopnea, or PND. No edema. No palpitations. GASTROINTESTINAL: No nausea or vomiting. No diarrhea or constipation. No change in bowel movements. No heartburn or swallowing difficulties. No abdominal pain. No jaundice. No hematemesis, melena, or rectal bleeding. He has an ileostomy. GENITOURINARY: No hematuria or dysuria. MUSCULOSKELETAL: No pain in the muscles, joints or bones. NEUROLOGICAL: No tingling or numbness in the hands or feet. No headaches or convulsions. HEMATOLOGIC/LYMPHATIC: No bleeding or easy bruising. He is weak, tired, and fatigued. SKIN: No skin rash or lumps. PSYCHIATRIC: No anxiety or depression. PHYSICAL EXAMINATION GENERAL: Looks stable. Well developed, well nourished, and in no acute distress. VITAL SIGNS: Blood pressure 110/70, pulse 105 per minute, respirations 16 per minute, temperature 97.1, pulse oximetry 95% on room air. HEENT: Head: Atraumatic. No sinus tenderness to palpation. Eyes: No icterus or conjunctivitis. Mouth and throat: No oral thrush or mucositis. NECK: Supple. No cervical or supraclavicular lymphadenopathy. LUNGS: Clear to auscultation and percussion bilaterally. HEART: Regular rate and rhythm. No gallops, murmurs, clicks, or rubs. ABDOMEN: Soft and lax. No tenderness. No hepatosplenomegaly. No masses. EXTREMITIES: No cyanosis, clubbing, or edema. LYMPHATICS: No peripheral lymphadenopathy. NEUROLOGICAL: Conscious, alert, and oriented times three. No focal motor or sensory deficits. PSYCHIATRIC: Mood and affect appear normal. SKIN: No skin rash, bruise, or purpuric eruption. ASSESSMENT Stage A2G6xN5 rectal adenocarcinoma of the proximal rectum, status post low anterior resection done on the March for a tumor which invades to the level of the serosa, but it does not extend into the pericolonic fat. Tumor was low grade, moderately differentiated, invasive adenocarcinoma. Tumor was microsatellite instability high given the MSH2 was negative, and the MHS6 was equivocal. PRF was negative, NRAS negative, but KRAS mutation was positive. Fourteen lymph nodes were negative for metastasis and the loading for vascular invasion with negative margins. CT abdomen and pelvis done on the 17 of March and the April did not show any systemic metastasis. Chest x-ray on the March showed two small, indeterminant pulmonary nodules. The largest was 6 mm in the left lower lobe. I had a long discussion with the patient and his today regarding further management. For T3N0 tumors that had surgery with no neoadjuvant or adjuvant treatment, patients with favorable histology defined by G1, low grade with 2 mm or less pericolonic or perirectal invasion and low lymphovascular invasion, the 10-year local control rate without any treatment after surgery was 95%. The 10-year recurrence-free survival was 87%. Retrospect study with pooled data of 3791 patients in different, well-organized clinical trials did compare chemotherapy alone versus adjuvant chemoradiation in patients with T3N0. They found that the five-year survival was 84% after adjuvant chemotherapy alone compared to 47 % and 76% for adjuvant chemoradiation. One of the five-year disease-free survival was 69% for adjuvant chemotherapy alone compared to 63% and 66% for adjuvant chemoradiation. Given this information, it seems that the adjuvant chemotherapy alone is comparable to the adjuvant chemoradiation, and for this reason, I believe the patient will not require adjuvant radiation therapy after his surgery. I talked to him about chemotherapy. I am planning to treat him with eight cycles of FOLFOX with oxaliplatin, 5-FU, and leucovorin. I spent a long time explaining the plan of management, the logistics of it, and the side effects expected. The patient would like to think about it during the weekend, and he will tell us if he will plan to have chemotherapy or not. For administration of chemotherapy if the patient agrees to go for chemotherapy, I am planning to refer him back to Dr. Hernadez for placement of a single-lumen central port. Because of the presence of two pulmonary nodules, the largest was 6 mm in the left lower lobe of the lung, I am planning to get a PET CT scan for further evaluation and management. I will see the patient in two weeks from now with CBC, chemistry panel, and CEA. PLAN 1. Referral to Dr. Hernadez for port placement if the patient agrees to go for adjuvant chemotherapy. 2. PET CT scan. 3. Return in two weeks with CBC, chem panel, and CEA. 4. Patient to contact us for any new concerns or complaints. MTDD
[2018-05-18 08:10] VITALS: BP 114/73
--- NOTE | 2018-05-18 12:55 | ONCOLOGY FOLLOW UP NOTE ---
EVENT DATE: May 18, 2018 REASON FOR FOLLOWUP Second opinion regarding management of rectal adenocarcinoma. CHIEF COMPLAINT Patient feels well today. HISTORY OF PRESENT ILLNESS Mr. Nuñez is a very pleasant 53-year-old gentleman who is otherwise healthy. He initially presented in March 2018 with changes in his bowel habits. He reports at baseline being very regular in this regard, having a bowel movement once daily. His bowel movements had become fewer and farther between and he did start to notice blood in his stools. He underwent colonoscopy, which was revealing of a mass in the proximal rectum felt to be 10 cm long and starting at 20 cm. His CEA at that time was 1.5. Biopsies were taken of this mass, with pathology showing findings consistent with moderately differentiated colonic adenocarcinoma. MLH1 was positive, MSH2 was negative, MSH6 was equivocal and PMS2 was positive. There was no evidence of BRAF V600 gene mutation, no NRAS mutation and confirmed evidence of KRAS mutation in exon 2. He underwent a CT scan of the chest on March 29, 2018, which revealed two small indeterminate pulmonary micronodules, the largest measuring 6 mm in the left lower lobe. A CT of the abdomen and pelvis on March 17 revealed asymmetric wall thickening of the mid and upper rectum. There was only a single very small lymph node noted in the perirectal fat and no evidence of other adenopathy. There was no evidence of distant metastatic disease. He was seen by Dr. Hernadez in surgery and had second opinion from Dr. Gage. He did have an MRI of the pelvis performed on March 22, which revealed a large mid and upper rectal tumor and probably also involving the lower sigmoid, which appears contained by the muscularis propria, deemed to be a T2 lesion by MRI. There was no pelvic adenopathy or osseous metastatic disease. On April 07, 2018, he underwent robotic low anterior resection with diverting loop ileostomy. He did well with this surgery. Surgical pathology ultimately revealed an invasive well-differentiated colonic adenocarcinoma. Margins were negative and no lymphovascular invasion was seen. 0/14 lymph nodes were involved. Final pathologic staging was pT3 pN0 cM0. The patient was then seen for medical oncology consultation by Dr. Platt. A discussion took place at that time surrounding his initial presentation, imaging findings as well as clinical and surgical stating. Appropriate adjuvant therapy was also discussed at that time. The patient is here with his today for a second medical oncology opinion regarding management of his rectal cancer. Today, the patient reports that he is feeling pretty well, all things considered. He does have some fatigue and he is learning to deal with his ostomy. He reports no abdominal pain and he has noticed no blood in his stools. He denies shortness of breath and chest pain. His appetite has been pretty good. He has had no unanticipated weight loss. He reports no new urinary symptoms. REVIEW OF SYSTEMS Otherwise negative and all systems were reviewed. PAST MEDICAL HISTORY Patient has otherwise been healthy. PAST SURGICAL HISTORY 1. Low anterior resection with diverting loop ileostomy, as above. 2. Remote tonsillectomy. FAMILY HISTORY The patient reports that a paternal cousin had of leukemia and a paternal uncle had some type of pelvic malignancy for which he received chemotherapy and radiation. There is also a reported history of testicular cancer in his father. 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 He is a nonsmoker and there is no history of alcohol abuse or illicit drugs. CURRENT MEDICATIONS Tylenol as needed for pain. ALLERGIES No known drug allergies. VITAL SIGNS: Patient is afebrile, blood pressure 114/73, heart rate is 80, respirations 16, oxygen saturation 96% on room air, weight 70.9 kg. PHYSICAL EXAMINATION GENERAL: Patient is alert and oriented x3 in no apparent distress, sitting in the exam room chair. He is quite interactive and pleasant. He appears healthy. HEENT: Anicteric sclerae. LUNGS: Clear to auscultation bilaterally. HEART: Regular rate and rhythm. NEURO: Grossly nonfocal. Gait is normal. SKIN: No concerning rash or lesion. LABORATORY STUDIES AND IMAGING Please see History of Present Illness. PATHOLOGY Please see History of Present Illness. ASSESSMENT AND RECOMMENDATIONS Stage IIA well-differentiated rectal adenocarcinoma, status post low anterior resection. I had a lengthy and in-depth discussion with and Mrs. Nuñez today. Symptomatically, he is doing quite well. He has recovered from his surgery and he does seem to be dealing well with his ostomy at this point. We spent time today reviewing his initial presenting symptoms, colonoscopy results and biopsy results. We also reviewed his prior CT scan imaging as well as pelvic MRI imaging. We reviewed his surgical pathology in detail. The patient has visited with Dr. Hernadez and Dr. Gage in surgery and he has also visited with Dr. Chahal and Dr. Platt from radiation oncology and medical oncology, respectively. We discussed the rationale for adjuvant therapy for patients with Stage IIA rectal adenocarcinoma. Although I am unable to view the actual report from his radiation oncology consultation, the patient states that adjuvant radiation has not been recommended. I have reviewed the recommendations for the patient to receive adjuvant chemotherapy, which I certainly think is appropriate. We discussed his options in this regard. An abbreviated course of chemotherapy with FOLFOX is an option as well as capecitabine of infusional 5- FU. If he is, indeed, going to forego radiation therapy, an abbreviated course of FOLFOX would certainly be a reasonable choice, although he could also consider six months of FOLFOX chemotherapy in the adjuvant setting. We spent time today discussing common toxicities and the patient seems to understand these well. I have recommended that his case be brought before the GI Multidisciplinary Conference in [facility] next Wednesday. His case will be reviewed thoroughly at that time and we will be back in touch with him with recommendations made. The patient did have questions today about his prognosis should he choose to forego adjuvant therapy. I have not recommended that he do this and I believe I answered all of his questions today. He also had some questions about some alternative therapies including "B17". As discussed, I feel that data surrounding these alternative therapies is lacking and I would not strongly recommend them. I spent a total of one hour of time face to face with the patient and his today and 55 minutes of this was spent in direct counseling and coordination of care. I would be more than happy to visit with the patient again in the future but I am not sure of his intentions in terms of medical oncology followup. Again, I will be back in touch with him with recommendations made by the Tumor Board. I spent a total of 45 minutes of time face to face with the patient today, and 40 minues of this was spent in counseling and coordination of care. ABEBA
[2018-06-09 16:37] VITALS: BP 112/74
--- NOTE | 2018-06-10 14:39 | ONCOLOGY FOLLOW UP NOTE ---
EVENT DATE: June 09, 2018 DIAGNOSIS Stage IIA (T3N0M0) rectal adenocarcinoma. CHIEF COMPLAINT Patient is here today for followup of his rectal adenocarcinoma. ONCOLOGY HISTORY The patient is a 53-year-old male who presented with change in his bowel movements and rectal bleeding. He had a colonoscopy on the March, and an upper or proximal rectal mass was noted. Biopsy was done on the March, and the pathology came back positive for moderately differentiated adenocarcinoma. MSH2 was negative, MSH6 equivocal. The rest were positive. PRF mutation is negative. NRAS mutation is negative, but KRAS mutation was positive. Patient had a CT abdomen and pelvis on the March which showed asymmetric wall thickening in the mid and upper rectum. On the March, patient had a MRI of the pelvis which showed large mid and upper rectal tumor involving the lower sigmoid lesion, and it seems that the tumor was a T2 lesion by MRI of the pelvis. On the March, patient had a chest x-ray which showed two small, indeterminant pulmonary nodules. The largest was 6 mm in the left lower lobe of the lung. On the March, patient had LAR, and the pathology came back positive for positive, well-differentiated colonic adenocarcinoma, low grade, with invasion into the level of the serosa, but it did not extend into the pericolonic fat. Margins were negative. No lymphovascular invasion. Fourteen lymph nodes were negative for metastasis. Patient had CT abdomen and pelvis on the April. Both the abdomen and pelvis were seen and did not show any metastasis. Patient will start adjuvant chemotherapy with FOLFOX on the June. HISTORY OF PRESENT ILLNESS Patient is here today for followup of his rectal adenocarcinoma for adjuvant chemotherapy. He is complaining of some cough from the smoke, and he is weak, tired, and fatigued, but other than that, he is really doing very well currently. PAST MEDICAL HISTORY Insignificant except for his recent rectal adenocarcinoma. PAST SURGICAL HISTORY 1. Rectal surgery for his rectal cancer. 2. Tonsillectomy. FAMILY HISTORY Father had testicular cancer. Paternal uncle had prostate cancer. Paternal cousin with leukemia. SOCIAL HISTORY The patient is with two children. 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 Denies any abuse of tobacco, alcohol, or drugs. CURRENT MEDICATIONS Tylenol p.r.n. for pain. ALLERGIES No known drug allergies. REVIEW OF SYSTEMS CONSTITUTIONAL: No appetite or weight change. No fever, chills, or sweating. No recent infection. HEENT: Ears: No tinnitus or hearing problem. Nose: He has had nasal discharge recently from a cold. Throat: No sore throat or mouth ulcers. Eyes: No diplopia or visual changes. RESPIRATORY: Patient has cough. CARDIOVASCULAR: No chest pain, orthopnea, or PND. No edema. No palpitations. GASTROINTESTINAL: No nausea or vomiting. No diarrhea or constipation. No change in bowel movements. No heartburn or swallowing difficulties. No abdominal pain. No jaundice. No hematemesis, melena, or rectal bleeding. He has an ileostomy. GENITOURINARY: No hematuria or dysuria. MUSCULOSKELETAL: No pain in the muscles, joints or bones. NEUROLOGICAL: No tingling or numbness in the hands or feet. No headaches or convulsions. HEMATOLOGIC/LYMPHATIC: No bleeding or easy bruising. He is weak, tired, and fatigued. SKIN: No skin rash or lumps. PSYCHIATRIC: No anxiety or depression. PHYSICAL EXAMINATION GENERAL: Looks stable. Well developed, well nourished, and in no acute distress. VITAL SIGNS: Blood pressure 112/74, pulse 70 per minute, respirations 16 per minute, temperature 96.9, pulse ox 94% on room air. HEENT: Head: Atraumatic. No sinus tenderness to palpation. Eyes: No icterus or conjunctivitis. Mouth and throat: No oral thrush or mucositis. NECK: Supple. No cervical or supraclavicular lymphadenopathy. LUNGS: Clear to auscultation and percussion bilaterally. HEART: Regular rate and rhythm. No gallops, murmurs, clicks, or rubs. ABDOMEN: Soft and lax. No tenderness. No hepatosplenomegaly. No masses. EXTREMITIES: No cyanosis, clubbing, or edema. LYMPHATICS: No peripheral lymphadenopathy. NEUROLOGICAL: Conscious, alert, and oriented times three. No focal motor or sensory deficits. PSYCHIATRIC: Mood and affect appear normal. SKIN: No skin rash, bruise, or purpuric eruption. DIAGNOSTIC DATA CBC showed white count 11, hemoglobin 10.1, hematocrit 30.5, MCV 72.1, and platelets 307,000. Serum sodium was 136. ASSESSMENT 1. Stage IIA (T3N0M0) rectal adenocarcinoma of the proximal rectum, status post low anterior resection done on the March for a tumor which invades the level of the serosa, but it does not extend into the pericolonic fat. Tumor was low-grade, moderately differentiated, invasive adenocarcinoma. Tumor was microsatellite instability high given that the MSH2 was negative, and the MHS6 was equivocal. BRAF was negative, NRAS was negative, but KRAS mutation was positive. Fourteen lymph nodes were negative for metastasis, the lymphovascular invasion was negative, and margins were also negative. CT abdomen and pelvis done on the 17 of March and the April did not show any systemic metastasis. Chest x-ray March showed two small, indeterminant pulmonary nodules. The largest was 6 mm in the left lower lobe. Given that tumor was T3N0 with favorable histology defined by G1, low grade, with 2 mm or less pericolonic or perirectal invasion and low lymphovascular invasion, the 10- year local control rate without any treatment after surgery was 95%. The 10- year recurrence-free survival was 87%. Retrospective study from pooled data of [id number] patients and different well organized clinical trials did compare chemotherapy alone versus adjuvant chemoradiation in patients with T3N0. They found that the five-year survival was 84% after adjuvant chemotherapy alone compared to 76% for adjuvant chemoradiation. Five-year survival was 69% for adjuvant chemotherapy alone compared to 63% and 66% for adjuvant chemoradiation. It seems that adjuvant chemotherapy alone is comparable to the adjuvant chemoradiation, and for this reason, patient will not require adjuvant radiation therapy after his surgery. The plan is to treat him with eight cycles of FOLFOX with oxaliplatin, 5-FU, and leucovorin. There were two nodules in the lung by chest x-ray, and PET scan was recommended, but patient refused to do it. Patient will have central port placement by Dr. Hernadez on the May, and he will start chemotherapy with FOLFOX on the June. I am planning to check CBC, chemistry panel weekly after he starts chemotherapy, and I will check CBC, chemistry panel, and CEA prior to each cycle of FOLFOX. I will see him prior to his next cycle of chemotherapy with CBC, chemistry panel, and CEA. 2. Microcytic anemia. His hemoglobin in April was 10.1, and MCV was 72.1. Most probably these were iron deficiency. I will check iron studies. I will supplement iron if patient will prove to have iron deficiency. PLAN 1. Chemotherapy with FOLFOX cycle #1 on the June. 2. CBC, chem panel, CEA, and iron studies with ferritin to be checked prior to his first cycle of chemotherapy. 3. CBC, chem panel to be checked weekly. 4. Consider Neulasta 6 mg subcutaneously day three of each cycle if the patient develops neutropenia in the future. 5. Patient to return on the June with CBC, chem panel, CEA. 6. Patient to contact us for any new concerns or complaints. MTDD
[2018-06-14 08:52] VITALS: BP 104/75
[2018-06-14] MEDS: NS(*) 0.9% 500 ML BAG 500 ML IV PRN (09:16)
[2018-06-14] MEDS: LIDOCAINE/SOD BICARB 8.4% SYR ID PRN (09:16)
[2018-06-14] MEDS: PALONOSETRON 0.25 MG/5 ML VIAL IVP PRN (10:08)
[2018-06-14] MEDS: DEXAMETHASONE SOD PHOS 10MG/ML IVP PRN (10:09)
[2018-06-14] MEDS: DEXTROSE 5%(*) 100 ML BAG 100 ML IVPB PRN (10:50)
[2018-06-14 13:34] VITALS: BP 114/72
--- NOTE | 2018-06-14 14:56 | Medical Nutrition Therapy ---
Nutrition Anthropometrics Height (Inches): 65.25 Height (Calculated Centimeters: 165.7350 Weight (Pounds): 161 Hx Weight Loss: Yes (patient states his wt had been stable around 178 lbs prior to surgery) Nutritional Education Nutrition Education Topic: Other (Eating Hints during Cancer Treatment ) Learning Readiness: Interested Teaching Methods: Discussion, Handout Response to Teaching: Verbalize understanding Teaching Recipient: Patient Nutrition Counseling: Reviewed handout on Eating during Cancer Treatment, discussed potential nutrition impact symptoms and encouraged patient to review information especially if he is experiencing any of the symptoms. Patient stated he is not experiencing any issues with eating nor did he mention that he was having any issues with his ileostomy at this time. Nutrition Monitoring & Eval Nutrition Goals: Eat 90-100% Meal, Drink > 2 liters/day Nutritional Goals Comment: Goal is to maintain current weight - 161 lbs. Nutrition Follow-Up: Good Intake RD Patient Assessment Time: 15 minutes (less than 15 minutes ) RD Assessment Type: RD Education Patient Nutrition Acuity: 2-Moderate Nutritional Comment: Encourage patient to call or let RN know if he would like to discuss any nutrition issues with me. ISIS ANNA RDN, [place] Jun 14, 2018 14:56
[2018-06-16 10:43] VITALS: BP 108/63
[2018-06-16] MEDS: HEPARIN FLSH (PORT) 500 UN/5ML IVP PRN (10:56)
[2018-06-23 16:18] VITALS: BP 106/74
[2018-06-23 16:35] LABS: PLATELET COUNT, AUTOMATED 279 K/uL (150-450)
[2018-06-28] MEDS: LIDOCAINE/SOD BICARB 8.4% SYR ID PRN (09:15)
[2018-06-28] MEDS: NS(*) 0.9% 500 ML BAG 500 ML IV PRN (09:15)
[2018-06-28 09:16] VITALS: BP 102/69
[2018-06-28 09:30] LABS: PLATELET COUNT, AUTOMATED 268 K/uL (150-450)
[2018-06-28] MEDS: PALONOSETRON 0.25 MG/5 ML VIAL IVP PRN (10:19)
[2018-06-28] MEDS: DEXAMETHASONE SOD PHOS 10MG/ML IVP PRN (10:19)
--- NOTE | 2018-06-28 10:49 | Medical Nutrition Therapy ---
Nutrition Anthropometrics Height (Inches): 65.25 Height (Calculated Centimeters: 165.7350 Weight (Pounds): 162 (wt is stable) Nutrition Monitoring & Eval Nutrition Follow-Up: Good Intake Nutrition Monitoring: I followed up with Ellis to check if he was experiencing any nutrition impact symptoms, he denied any issues with eating or with his ileostomy. His weight is stable. RD Patient Assessment Time: 15 minutes (Brief Follow Up ) RD Assessment Type: RD Education (No additional information provided at this time ) Patient Nutrition Acuity: 2-Moderate Nutritional Comment: Encourage patient to call or let RN know if he would like to discuss any nutrition issues with me. ISIS ANNA RDN, [place] Jun 28, 2018 10:49
[2018-06-28] MEDS: DEXTROSE 5%(*) 100 ML BAG 100 ML IVPB PRN (10:54)
[2018-06-30 11:39] VITALS: BP 98/70
--- NOTE | 2018-07-01 12:10 | [facility] ONCOLOGY NOTE ---
EVENT DATE: June 30, 2018 DIAGNOSIS Stage IIA (T3N0M0) rectal adenocarcinoma. CHIEF COMPLAINT Patient is here today for followup of his rectal adenocarcinoma. ONCOLOGY HISTORY The patient is a 53-year-old male who presented with change in his bowel movements and rectal bleeding. He had a colonoscopy on the March, and an upper or proximal rectal mass was noted. Biopsy was done on the March, and the pathology came back positive for moderately differentiated adenocarcinoma. MSH2 was negative, MSH6 equivocal. The rest were positive. PRF mutation is negative. NRAS mutation is negative, but KRAS mutation was positive. Patient had a CT abdomen and pelvis on the March which showed asymmetric wall thickening in the mid and upper rectum. On the March, patient had a MRI of the pelvis which showed large mid and upper rectal tumor involving the lower sigmoid lesion, and it seems that the tumor was a T2 lesion by MRI of the pelvis. On the March, patient had a chest x-ray which showed two small, indeterminant pulmonary nodules. The largest was 6 mm in the left lower lobe of the lung. On the March, patient had LAR, and the pathology came back positive for positive, well-differentiated colonic adenocarcinoma, low grade, with invasion into the level of the serosa, but it did not extend into the pericolonic fat. Margins were negative. No lymphovascular invasion. Fourteen lymph nodes were negative for metastasis. Patient had CT abdomen and pelvis on the April. Both the abdomen and pelvis were seen and did not show any metastasis. Patient will start adjuvant chemotherapy with FOLFOX on the June. HISTORY OF PRESENT ILLNESS Patient is here today for followup of his rectal adenocarcinoma, on adjuvant chemotherapy with FOLFOX. He is complaining of fatigue. He has also some cold exposure and neuropathy in his hands. He has also occasional nausea responding very well to Compazine but other than that he is very stable. PAST MEDICAL HISTORY Insignificant except for his recent rectal adenocarcinoma. PAST SURGICAL HISTORY 1. Rectal surgery for his rectal cancer. 2. Tonsillectomy. FAMILY HISTORY Father had testicular cancer. Paternal uncle had prostate cancer. Paternal cousin with leukemia. SOCIAL HISTORY The patient is with two children. 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 Denies any abuse of tobacco, alcohol, or drugs. CURRENT MEDICATIONS Tylenol p.r.n. for pain. ALLERGIES No known drug allergies. REVIEW OF SYSTEMS CONSTITUTIONAL: No appetite or weight change. No fever, chills, or sweating. No recent infection. HEENT: Ears: No tinnitus or hearing problem. Nose: He has had nasal discharge recently from a cold. Throat: No sore throat or mouth ulcers. Eyes: No diplopia or visual changes. RESPIRATORY: Patient has cough. CARDIOVASCULAR: No chest pain, orthopnea, or PND. No edema. No palpitations. GASTROINTESTINAL: He has occasional nausea. GENITOURINARY: No hematuria or dysuria. MUSCULOSKELETAL: No pain in the muscles, joints or bones. NEUROLOGICAL: He has neuropathy in his fingers sometimes with cold exposure. HEMATOLOGIC/LYMPHATIC: He is weak, tired, and fatigued. SKIN: No skin rash or lumps. PSYCHIATRIC: No anxiety or depression. PHYSICAL EXAMINATION GENERAL: Looks stable. Well developed, well nourished, and in no acute distress. VITAL SIGNS: Blood pressure 98/70, pulse 70 per minute, respirations 16 per minute, temperature 98.2, pulse ox 94% on room air. HEENT: Head: Atraumatic. No sinus tenderness to palpation. Eyes: No icterus or conjunctivitis. Mouth and throat: No oral thrush or mucositis. NECK: Supple. No cervical or supraclavicular lymphadenopathy. LUNGS: Clear to auscultation and percussion bilaterally. HEART: Regular rate and rhythm. No gallops, murmurs, clicks, or rubs. ABDOMEN: Soft and lax. No tenderness. No hepatosplenomegaly. No masses. EXTREMITIES: No cyanosis, clubbing, or edema. LYMPHATICS: No peripheral lymphadenopathy. NEUROLOGICAL: Conscious, alert, and oriented times three. No focal motor or sensory deficits. PSYCHIATRIC: Mood and affect appear normal. SKIN: No skin rash, bruise, or purpuric eruption. DIAGNOSTIC DATA CBC showed white count 3.7, hemoglobin 13.4, hematocrit 40.6, platelets 268,000, MCV 74. Chem panel is totally normal. Serum iron is 35. TIBC 415, iron saturation 8.4 and ferritin 8. CEA is normal at 1.1. ASSESSMENT 1. Stage IIA (T3N0M0) rectal adenocarcinoma of the proximal rectum, status post low anterior resection done on April 07, 2018 for a tumor which invades the level of the serosa but it does not extend into the pericolonic fat. Tumor was low- grade, moderately differentiated, invasive adenocarcinoma. Tumor was microsatellite instability high given that the MSH2 was negative and the MHS6 was equivocal. BRAF was negative, NRAS was negative but KRAS mutation was positive. Fourteen lymph nodes were negative for metastasis. Lymphovascular invasion was negative. Margins were also negative. CT abdomen and pelvis done on March 17, 2018 and April 15, 2018 did not show any systemic metastasis. Chest x-ray on March 29, 2018 showed two small indeterminant pulmonary nodules. The largest was 6 mm in the left lower lobe. Given that the tumor was T3N0 with favorable histology defined by G1, low grade, with 2 mm or less pericolonic or perirectal invasion and low lymphovascular invasion, the 10-year local control rate without any treatment after surgery was 95%. The 10-year recurrence-free survival was 87%. Retrospective study from pooled data of [id number] patients and different well organized clinical trials did compare chemotherapy alone versus adjuvant chemoradiation in patients with T3N0. They found that the five-year survival was 84% after adjuvant chemotherapy alone compared to 76% for adjuvant chemoradiation. Five-year survival was 69% for adjuvant chemotherapy alone compared to 63% and 66% for adjuvant chemoradiation. It seems that adjuvant chemotherapy alone is comparable to the adjuvant chemoradiation and for this reason patient started adjuvant chemotherapy with FOLFOX chemotherapy on June 14, 2018. He tolerated the chemotherapy very well so far. I am planning to see him again in two weeks after his third cycle of chemotherapy. He developed neutropenia with his treatment and patient received Neulasta after his second cycle of chemotherapy. I will check his CBC and chem panel every week. 2. Iron deficiency anemia, most probably due to his rectal cancer. His ferritin was low at 8. He started ferrous sulfate 325 mg three times with meals. We will continue to monitor. PLAN 1. Chemotherapy with FOLFOX cycle #2, which is given already. 2. CBC, chem panel to be checked weekly. 3. Patient to return in two weeks with CBC, chem panel and CEA. 4. Continue ferrous sulfate 325 mg three times daily. 5. Patient to contact us for any new concerns or complaints. MTDD
[2018-07-07 14:59] VITALS: BP 108/78
[2018-07-07 15:00] LABS: PLATELET COUNT, AUTOMATED 260 K/uL (150-450)
[2018-07-12 12:01] VITALS: BP 112/78
[2018-07-12] MEDS: LIDOCAINE/SOD BICARB 8.4% SYR ID PRN (12:29)
[2018-07-12] MEDS: NS(*) 0.9% 500 ML BAG 500 ML IV PRN (12:30)
[2018-07-12] MEDS: PALONOSETRON 0.25 MG/5 ML VIAL IVP PRN (12:57)
[2018-07-12] MEDS: DEXAMETHASONE SOD PHOS 10MG/ML IVP PRN (12:57)
[2018-07-12 16:22] VITALS: BP 110/77
--- NOTE | 2018-07-12 17:45 | ONCOLOGY FOLLOW UP NOTE ---
EVENT DATE: July 12, 2018 CHIEF COMPLAINT "I'm a little tired." HISTORY OF PRESENT ILLNESS Patient is a 53-year-old male who was seen today for consideration of cycle #3 of adjuvant FOLFOX. He has tolerated his treatment well, although does have the expected side effects of cold intolerance lasting three to four days and mild nausea. He uses Compazine with good effect. He does note increased sensitivity in his hands, but no persistent neuropathic pain. He has had some issues with insomnia, but controls this with melatonin. He had many questions regarding the need for treatment, which I reviewed with him and his at length. He is managing his ileostomy well and looking forward to having this reversed. ONCOLOGY HISTORY Patient presented with a change in bowel habits in March 2018. Colonoscopy was done with biopsy showing a rectal adenocarcinoma. He underwent low anterior resection on 04/07/18. Tumor invaded the level of the serosa, but did not extended into the pericolonic fat. Tumor was a low-grade, moderately differentiated, invasive adenocarcinoma, MSI high, MSH2 negative, MSH6 equivocal. BRAF and NRAS were negative, but KRAS was positive. Fourteen lymph nodes negative for metastases with no lymphovascular invasion noted. CT of the abdomen and pelvis showed no evidence of systemic metastases. Began adjuvant FOLFOX on 06/14/18. MEDICAL HISTORY Stage IIA colon cancer, March 2018. SURGICAL HISTORY 1. Low anterior resection with ileostomy 04/07/18. 2. Tonsillectomy. FAMILY HISTORY Father had testicular cancer. Paternal uncle had prostate cancer. A paternal cousin of leukemia. SOCIAL HISTORY Patient is . They have two grown children. They are raising their 10-year-old grandson. 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 He does not smoke, drink alcohol, or use illicit drugs. REVIEW OF SYSTEMS A 12-point review of systems is performed and is negative except as stated above. PHYSICAL EXAMINATION VITAL SIGNS: Weight 76.6 kg. BP 112/78, P 77, R 16, temp 97.4, O2 sat 95%. GENERAL: Patient is a well-developed, well-nourished male in no acute distress. HEAD: Normocephalic, atraumatic. EYES: Sclerae anicteric. MOUTH: Moist mucous membranes with no evidence of mucositis. NECK: Supple. No adenopathy. LUNGS: Clear bilaterally. CARDIOVASCULAR: Heart rate regular, 76 per minute without murmur, S3, or S4. EXTREMITIES: No edema. NEUROLOGIC: Nonfocal. LABORATORY CBC today reveals a WBC of 8.5, hemoglobin 14.3, hematocrit 43.6, platelets 202,000. CMP is pending. IMPRESSION The patient is a 53-year-old male with stage IIA (T3 N0 M0) rectal adenocarcinoma of the proximal rectum, status post low anterior resection. Began adjuvant FOLFOX on 06/14/18. PLAN 1. Colon cancer. Cycle #3 of adjuvant FOLFOX. He is tolerating this fairly well with some of the expected toxicities. No need for dose reduction. 2. Iron deficiency anemia. He began ferrous sulfate, prescribed 325 mg t.i.d. His hemoglobin has improved from 12.9 to 14.3. He is not able to take this on a t.i.d. basis, but will continue this b.i.d.. 3. Neuropathy, minimal. He describes this more as an increased sensitivity to his hands. He also notes some jaw discomfort, but this resolves within several days. 4. Flu vaccine today. 5. Follow up as scheduled for cycle #4 of treatment. MTDD
[2018-07-14] MEDS: HEPARIN FLSH (PORT) 500 UN/5ML IVP PRN (14:45)
[2018-07-14 15:24] VITALS: BP 104/66
[2018-07-21 16:30] LABS: PLATELET COUNT, AUTOMATED 332 K/uL (150-450)
[2018-07-21 16:59] VITALS: BP 109/72
[~2018-07-26] VITALS: Ht 165.7 cm; Wt 76.7 kg
[~2018-07-26] MED LIST changes: +ALTEPLASE RECOMB 2 MG VIAL IVP PRN; +D5W IV ONE; +D5W IVPB ONE; +FERR-53 PO; +FLUOROURACIL 50 MG/ML SDV IV ONE; +FLUOROURACIL 50 MG/ML SDV IVP ONE; +FLUOROURACIL IV ONE; +INFLUENZA VIRUS VAC 0.5ML SYR IM ONLY ONE; +LEUCOVORIN CAL IV ONE; +NS 0.9% IV ONE; +NS(*) 0.9% 100 ML BAG 100 ML IVPB PRN; +OXALIPLATIN IVPB ONE; +PEGFILGRASTIM 6 MG/0.6 ML SYR SUBQ ONE; +WATER FOR INJ,STERILE 20 ML IVP PRN
[2018-07-26 12:14] VITALS: BP 103/75
[2018-07-26] MEDS: LIDOCAINE/SOD BICARB 8.4% SYR ID PRN (12:36)
[2018-07-26] MEDS: NS(*) 0.9% 500 ML BAG 500 ML IV PRN (12:37)
[2018-07-26] MEDS: DEXAMETHASONE SOD PHOS 10MG/ML IVP PRN (12:58)
[2018-07-26] MEDS: PALONOSETRON 0.25 MG/5 ML VIAL IVP PRN (12:58)
[2018-07-26] MEDS: DEXTROSE 5%(*) 100 ML BAG 100 ML IVPB PRN (13:38)
[2018-07-26 16:03] VITALS: BP 124/79
--- NOTE | 2018-07-26 23:27 | ONCOLOGY FOLLOW UP NOTE ---
EVENT DATE: July 26, 2018 CHIEF COMPLAINT Presents for cycle #4 of treatment for colon cancer. HISTORY OF PRESENT ILLNESS Patient is a 53-year-old male who was seen today for consideration of cycle #4 of adjuvant FOLFOX. He has required Neulasta after his treatment as he developed significant neutropenia after cycle #1. Today, he presents and relates feeling much more fatigued. He believes the cold intolerance is now lasting longer. He has had some mild numbness in his fingertips, but not on his toes. This symptom resolves. He also describes some nausea, which he believes lasts longer. He is taking Compazine and Ativan with minimal effect. He is managing his ileostomy fairly well, although does have some skin issues related to changing the appliance. ONCOLOGY HISTORY Patient presented with a change in bowel habits in March 2018. Colonoscopy was done with biopsy showing a rectal adenocarcinoma. He underwent low anterior resection on 04/07/18. Tumor invaded the level of the serosa, but did not extended into the pericolonic fat. Tumor was a low-grade, moderately differentiated, invasive adenocarcinoma, MSI high, MSH2 negative, MSH6 equivocal. BRAF and NRAS were negative, but KRAS was positive. Fourteen lymph nodes negative for metastases with no lymphovascular invasion noted. CT of the abdomen and pelvis showed no evidence of systemic metastases. Began adjuvant FOLFOX on 06/14/18. MEDICAL HISTORY Stage IIA colon cancer, March 2018. SURGICAL HISTORY 1. Low anterior resection with ileostomy 04/07/18. 2. Tonsillectomy. FAMILY HISTORY Father had testicular cancer. Paternal uncle had prostate cancer. A paternal cousin of leukemia. SOCIAL HISTORY Patient is . They have two grown children. They are raising their 10-year-old grandson. 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 He does not smoke, drink alcohol, or use illicit drugs. REVIEW OF SYSTEMS A 12-point review of systems is performed and is negative except as stated above. PHYSICAL EXAMINATION VITAL SIGNS: Weight 76.7 kg, stable. BP 124/79, P 78, R 16, temp 97.0, O2 sat 90%. GENERAL: Patient is a well-developed, but slightly fatigued-appearing male in no acute distress. HEAD: Atraumatic, normocephalic. EYES: Sclerae anicteric. MOUTH: Moist mucous membranes. NECK: Supple. No adenopathy. LUNGS: Clear bilaterally. CARDIOVASCULAR: Heart rate regular, 78 per minute, without murmur, S3, or S4. ABDOMEN: Soft with mild mid epigastric tenderness. Active bowel sounds. EXTREMITIES: No edema. NEUROLOGIC: Nonfocal. LABORATORIES CBC today reveals a WBC of 9.2, hemoglobin 14.1, hematocrit 43.3, platelets 254,000. CMP is pending. IMPRESSION The patient is a 53-year-old male with stage IIA (T3 N0 M0) rectal adenocarcinoma of the proximal rectum, status post low anterior resection. Began adjuvant FOLFOX on 06/14/18. PLAN 1. Colon cancer. Cycle #4 of adjuvant FOLFOX today. Neulasta will be given on day three as he developed significant neutropenia after cycle #1. 2. Neuropathy. Describes some mild numbness on his fingertips, but not on his toes. This slowly resolved and is associated with the cold intolerance. He does note the cold intolerance lasts longer. Will continue to monitor. 3. Iron deficiency anemia. Hemoglobin is stable today, 14.1. He will continue ferrous sulfate 325 mg b.i.d. He did not tolerate t.i.d. dosing. 4. GI. Describes some mild nausea without vomiting, which he believes is lasting longer. He does have some mild mid epigastric discomfort. I recommended a trial of omeprazole 20 mg daily. 5. Fatigue. Recommended he remain as active as possible. 6. Follow up in two weeks for cycle #5 of treatment. He will see Dr. Mateo Mcadams on 08/25/18. MTDD
== END ==
LOC: ONC 04-27 09:04 → SPU 06-13 13:00 → ONC 06-14 08:36 → SPU 06-23 15:45 → ONC 06-28 09:00 → SPU 07-07 14:45 → ONC 07-12 11:52 → SPU 07-21 16:00 → ONC 12:00
PROVIDERS: ATTEND Internal Medicine Hematology
DX: Z51.11 Encounter for antineoplastic chemotherapy (principal); C20 Malignant neoplasm of rectum; D50.9 Iron deficiency anemia, unspecified; R53.1 Weakness; R53.83 Other fatigue; R05 Cough; Z23 Encounter for immunization
CPT/HCPCS: 36415; 82378; 82728; 83540; 83550; 85025; 85027; 90471; 90674; 96368; 96372; 96375; 96411; 96413; 96415; 96416; 99202; 99212; J0640; J1100; J1642; J2469; J2505; J7040; J7060; J9190; J9263; 82040; 82247; 82310; 82374; 82435; 82565; 82947; 84075; 84132; 84155; 84295; 84450; 84460; 84520

== ENCOUNTER 2018-08-11 11:52 | Outpatient (CLI) | payer BC ==
[2018-04-16 13:00] VITALS: BMI 25.8
[~2018-08-11 11:52] MED LIST changes: -ALTEPLASE RECOMB 2 MG VIAL IVP PRN; -D5W IV ONE; -D5W IVPB ONE; -FLUOROURACIL 50 MG/ML SDV IV ONE; -FLUOROURACIL 50 MG/ML SDV IVP ONE; -FLUOROURACIL IV ONE; -INFLUENZA VIRUS VAC 0.5ML SYR IM ONLY ONE; -LEUCOVORIN CAL IV ONE; -NS 0.9% IV ONE; -NS(*) 0.9% 100 ML BAG 100 ML IVPB PRN; -OXALIPLATIN IVPB ONE; -PEGFILGRASTIM 6 MG/0.6 ML SYR SUBQ ONE; -WATER FOR INJ,STERILE 20 ML IVP PRN
[2018-08-11] MEDS ORDERED: PEGFILGRASTIM 6 MG/0.6 ML SYR SUBQ ONE (14:05)
== END 2018-08-18 08:28 | disposition home or self-care (01) ==
LOC: SPU 11:52
PROVIDERS: ATTEND Internal Medicine Hematology
DX: C20 Malignant neoplasm of rectum (principal)
CPT/HCPCS: 96372; J2505

== ENCOUNTER → 2018-08-25 | Outpatient (CLI) | payer BC ==
[2018-04-16 13:00] VITALS: BMI 25.8
[~2018-08-25] MED LIST changes: +PEGFILGRASTIM 6 MG/0.6 ML SYR SUBQ ONE
[2018-08-25 14:21] VITALS: BP 102/68
== END ==
LOC: SPU 10:21
PROVIDERS: ATTEND Internal Medicine Hematology
DX: C20 Malignant neoplasm of rectum (principal)
CPT/HCPCS: 96372; J2505

== ENCOUNTER 2018-09-09 08:00 | Outpatient (RCR) | payer BC ==
[2018-04-16 13:00] VITALS: BMI 25.8
[~2018-09-09 08:00] MED LIST changes: -PEGFILGRASTIM 6 MG/0.6 ML SYR SUBQ ONE
[2018-09-09 13:25] VITALS: BP 120/80
--- NOTE | 2018-10-17 01:54 | ONCOLOGY FOLLOW UP NOTE ---
EVENT DATE: September 09, 2018 This note is regarding an error in a previous dictation regarding date of service. The dictation states the date of service was 08/30/18, but he was seen on 09/09/18 for followup care. ABEBA
--- NOTE | 2018-10-18 12:06 | ONCOLOGY FOLLOW UP NOTE ---
This note is regarding an error in a previous dictation regarding the date of service. The dictation states the date of service was August 30, 2018, but patient was seen on September 09, 2018, for followup care. ABEBA
[2018-11-11] MEDS ORDERED: ACET-2146 PO (07:20)
[2018-11-15] MEDS ORDERED: PER PO (08:11)
[2018-12-05] MEDS ORDERED: BIFI4CAP2 PO (14:21)
== END 2018-12-08 ==
LOC: ONC 08:00
PROVIDERS: ATTEND Internal Medicine Hematology
DX: Z51.11 Encounter for antineoplastic chemotherapy (principal); C20 Malignant neoplasm of rectum; R68.89 Other general symptoms and signs; R11.0 Nausea
CPT/HCPCS: 99212

== ENCOUNTER → 2018-09-09 | Outpatient (CLI) | payer BC ==
[2018-04-16 13:00] VITALS: BMI 25.8
--- NOTE | 2018-09-09 17:36 | ONCOLOGY FOLLOW UP NOTE ---
EVENT DATE: August 30, 2018 CHIEF COMPLAINT Followup for stage IIA rectal adenocarcinoma. HISTORY OF PRESENT ILLNESS Patient is a 53-year-old male who was seen today after receiving cycle #7 of adjuvant FOLFOX. He continues to tolerate this fairly well. He does have some mild fatigue as well as nausea for 3 to 4 days after treatment but is managing this with antiemetics. He continues to work. He denies any significant neuropathy but does have the expected cold intolerance. He is looking forward to completing his last cycle of treatment on September 20, 2018. He denies any other new complaints. ONCOLOGY HISTORY 1. Stage IIA (T3 N0 M0) rectal adenocarcinoma of the proximal rectum, status post low anterior resection on April 07, 2018. Tumor invaded the serosa but did not extend into the pericolonic fat. Tumor was low-grade, moderately differentiated invasive adenocarcinoma. Tumor was microsatellite instability high given that the MSH2 was negative and MSH6 was equivocal. BRAF negative. NRAS negative. KRAS mutation positive. Fourteen lymph nodes were negative for metastases. No lymphovascular invasion noted. Began adjuvant therapy with FOLFOX on June 14, 2018. MEDICAL HISTORY Stage IIA colon cancer, March 2018. SURGICAL HISTORY 1. Low anterior resection with ileostomy 04/07/18. 2. Tonsillectomy. FAMILY HISTORY Father had testicular cancer. Paternal uncle had prostate cancer. A paternal cousin of leukemia. SOCIAL HISTORY Patient is . They have two grown children. They are raising their 10-year-old grandson. 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 He does not smoke, drink alcohol, or use illicit drugs. MEDICATIONS Tylenol p.r.n. ALLERGIES No known drug allergies. REVIEW OF SYSTEMS A 12-point review of systems is performed and is negative except as stated above. PHYSICAL EXAMINATION VITAL SIGNS: BP 120/80, pulse 80, respirations 16, temperature 97.3, O2 sat 95%. GENERAL: Patient is a well-developed, well-nourished but fatigued-appearing male in no acute distress. HEAD: Normocephalic, atraumatic. EYES: Sclerae anicteric. MOUTH: Moist mucous membranes. No lesions. CARDIOVASCULAR: Heart rate regular without murmur, S3, or S4. LUNGS: Clear bilaterally. EXTREMITIES: No edema. NEUROLOGIC: Nonfocal. LABS CBC on September 07, 2018 showed a WBC of 6.2, hemoglobin 13.9, hematocrit 42.5, platelets 147. CMP was within normal limits. IMPRESSION AND PLAN The patient is a 53-year-old male with stage IIA (T3 N0 M0) rectal adenocarcinoma of the proximal rectum, status post low anterior resection. Began adjuvant FOLFOX on 06/14/18. 1. Colon cancer. Patient has now completed 7 cycles of FOLFOX. He is tolerating this well. He will receive Neulasta due to previous neutropenia. 2. Cold intolerance, ongoing, especially in his fingers. He denies any persistent peripheral neuropathy. 3. Gastrointestinal. He is nauseated for several days after treatment. He does not vomit. He manages this with Compazine and Zofran. He also continues on omeprazole. 4. Follow up on September 20, 2018, for cycle #8 of treatment. He will see Dr. Platt on September 22, 2018. [facility]
== END ==
LOC: SPU 10:32
PROVIDERS: ATTEND Internal Medicine Hematology
DX: C20 Malignant neoplasm of rectum (principal)
CPT/HCPCS: 96372; J2505

== ENCOUNTER 2018-09-20 09:45 | Outpatient (RCR) | payer BC ==
[2018-04-16 13:00] VITALS: BMI 25.8
--- NOTE | 2018-09-22 08:41 | PT PLAN OF CARE ---
Physician: Juan Platt MD Patient is being seen: 1x/MO Therapist: Magda Knowles, PT, DPT, CLT Medical Diagnosis: Rectal CA Treatment Diagnosis: Rectal CA Date of Onset: 06/14/18 Date of Initial Evaluation: 06/14/18 Date patient was last seen: 09/20/18 Number of treatments: 3 Number of cancellations/No shows: 0 INTERVENTIONS: Manual Therapy/STM/MET Strengthening/condition Ice/Heat Range of Motion Spinal Stabilization Ultrasound Stretching Iontophoresis Neuromuscular Re-ed Closed Chain Program Electrical Stim Posture/Body mechanics Gait Trg/Balance Trg Biofeedback Home Exercise Program Mech./Manual Traction Therapeutic Activities Pelvic Floor GOALS: In 2 MO pt will maintain ECOG performance status of grade 2 for decreased side- effects with ongoing oncological status and maintenance of function with ADL's. MET In 4 MO pt will maintain FACT-G of >90 for maintenance of functional status with ADL's. MET In 4 MO pt will maintain ECOG performance status of grade 2 for decreased side- effects with ongoing oncological status and maintenance of function with ADL's. MET PATIENT'S GOAL: Maintain function with ADL's with ongoing treatment for rectal cancer. Status of Patient's Goals: 3/3 MET Patient Compliance: Good Prognosis: Good Reasons for discharge from therapy: Ellis is to discharge from physical therapy at this time secondary to completion of chemotherapy intervention and having met 3/3 functional goals throughout. Despite lingering neuropathy, Ellis has maintained functional status with improvements in ability to work and quality of life. Ellis has developed increased jaw pain with neuropathic sensations, however he does not wish to have continued PT for this at the moment. Ellis is to continue with intervention for treatment of Rectal CA with surgery scheduled in October 2018. Following surgery if any dysfunction arises pt is to seek further PT at that time. ROM: LE ROM WFL Strength: LE MMT: Hip: flexion: B 5/5, Ext: L 5/5, R 5/5, Abd/Add: B 5/5. Knee: flex: B 5/5, ext: L 5/5, R 5/5. Ankle: PF/DF: 5/5 Special Tests: Functional Assessment of Cancer Therapy-General (FACT-G) (Eval): PWB: , SWB: , EWB: , FWB: , Total: 101/108 FACT-G 09/20/18: PWB: , SWB: , EWB: , FWB: , Total: 93/108 Mobility: ECOG Performance Status: grade 2 If you have any questions or concerns, please feel free to contact me at [phone]. Thank you, Magda Knowles, PT, DPT, CLT MTDD
== END 2018-09-20 18:00 | disposition home or self-care (01) ==
LOC: PT 09:45
PROVIDERS: ATTEND Internal Medicine Hematology
DX: C20 Malignant neoplasm of rectum (principal)

== ENCOUNTER 2018-10-13 15:28 | Outpatient (RCR) | payer BC ==
[2018-04-16 13:00] VITALS: Ht 165.7 cm; Wt 78.6 kg
[2018-07-28] MEDS: HEPARIN FLSH (PORT) 500 UN/5ML IVP PRN (14:33)
[2018-07-28 14:44] VITALS: BP 100/71
[2018-08-03 15:40] VITALS: BP 109/77
[2018-08-03 15:49] LABS: PLATELET COUNT, AUTOMATED 269 K/uL (150-450)
[2018-08-09 12:17] VITALS: BP 126/76
[2018-08-09] MEDS: LIDOCAINE/SOD BICARB 8.4% SYR ID PRN (12:25)
[2018-08-09] MEDS: NS(*) 0.9% 500 ML BAG 500 ML IV PRN (12:26)
[2018-08-09 12:30] LABS: PLATELET COUNT, AUTOMATED 213 K/uL (150-450)
[2018-08-09] MEDS: PALONOSETRON 0.25 MG/5 ML VIAL IVP PRN (13:13)
[2018-08-09] MEDS: DEXAMETHASONE SOD PHOS 10MG/ML IVP PRN (13:14)
[2018-08-09] MEDS: DEXTROSE 5%(*) 100 ML BAG 100 ML IVPB PRN (13:52)
[2018-08-09] MEDS: FLUOROURACIL IV PRN (16:27)
[2018-08-09] MEDS: NS 0.9% IV PRN (16:27)
[2018-08-09 16:40] VITALS: BP 116/80
--- NOTE | 2018-08-09 21:17 | ONCOLOGY FOLLOW UP NOTE ---
EVENT DATE: August 09, 2018 CHIEF COMPLAINT Presents for cycle #5 of FOLFOX. HISTORY OF PRESENT ILLNESS Patient is a 53-year-old male who is seen today for consideration of cycle #5 of adjuvant FOLFOX. He will also receive Neulasta at time of pump disconnect as he developed significant neutropenia after cycle #1. He is doing well, although has noted the cumulative fatigue. He also has mild nausea without vomiting, which he feels is lasting longer. He controls this with Compazine and Zofran. He started omeprazole last week which has helped somewhat with the nausea. Cold intolerance lasts much longer, approximately seven days now. He describes having a cold last week, but this resolved. Otherwise, he feels well. He does not complain of any peripheral neuropathy. MEDICAL HISTORY Stage IIA colon cancer, March 2018. SURGICAL HISTORY 1. Low anterior resection with ileostomy 04/07/18. 2. Tonsillectomy. FAMILY HISTORY Father had testicular cancer. Paternal uncle had prostate cancer. A paternal cousin of leukemia. SOCIAL HISTORY Patient is . They have two grown children. They are raising their 10-year-old grandson. 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 He does not smoke, drink alcohol, or use illicit drugs. REVIEW OF SYSTEMS A 12-point review of systems is performed and is negative except as stated above. PHYSICAL EXAMINATION VITAL SIGNS: Weight 77.6 kg. BP 126/76, P 78, R 16, temp 97.3, O2 sat 91%. GENERAL: Patient is a well-developed, but fatigued-appearing male in no acute distress. HEAD: Normocephalic, atraumatic. EYES: Sclerae anicteric. MOUTH: Moist mucous membranes. No lesions. NECK: Supple. No adenopathy. LUNGS: Clear bilaterally. CARDIOVASCULAR: Heart rate regular, 78 per minute, without murmur, S3, or S4. EXTREMITIES: No edema. NEUROLOGIC: Nonfocal. Fine motor skills are intact. LABORATORIES CBC today reveals a WBC of 8.9, ANC of 4.8, hemoglobin 14.8, hematocrit 45.5, platelets 213,000. CMP is within normal limits except for a mildly elevated AST of 60, ALT 96, and alkaline phosphatase of 138. IMPRESSION AND PLAN The patient is a 53-year-old male with stage IIA (T3 N0 M0) rectal adenocarcinoma of the proximal rectum, status post low anterior resection. Began adjuvant FOLFOX on 06/14/18. 1. Colon cancer. Cycle #5 of adjuvant FOLFOX today. He will receive Neulasta on day of disconnect due to previous neutropenia. 2. Cold intolerance. He describes this as lasting longer, now approximately seven days. He also notes some jaw discomfort, but these symptoms have resolved as of today. He denies any specific peripheral neuropathy. Fine motor skills are intact. 3. Iron deficiency anemia. Hemoglobin is stable, today 14.8. MCV has increased to 79 from a low of 72. He continues on ferrous sulfate 325 mg b.i.d. He did not tolerate the t.i.d. dosing, and hemoglobin is stable. 4. Gastrointestinal. Nausea without vomiting continues for several days. He is able to manage this well with Compazine and Zofran. He will continue omeprazole. 5. Transaminitis. LFTs are mildly elevated. We will continue to monitor trend. No dosing adjustments needed at this time. 6. Follow up on 08/23/18 for cycle #6 of treatment. He will see Dr. Mateo Mcadams on 08/25/18. MTDD
[2018-08-11] MEDS: HEPARIN FLSH (PORT) 500 UN/5ML IVP PRN (14:53)
[2018-08-18 16:07] VITALS: BP 112/82
[2018-08-18 16:34] LABS: PLATELET COUNT, AUTOMATED 201 K/uL (150-450)
[2018-08-23 12:06] VITALS: BP 117/84
[2018-08-23 12:24] LABS: PLATELET COUNT, AUTOMATED 190 K/uL (150-450)
[2018-08-23] MEDS: DEXAMETHASONE SOD PHOS 10MG/ML IVP PRN (12:45)
[2018-08-23] MEDS: PALONOSETRON 0.25 MG/5 ML VIAL IVP PRN (12:45)
[2018-08-23] MEDS: LIDOCAINE/SOD BICARB 8.4% SYR ID PRN (12:51)
[2018-08-23] MEDS: NS(*) 0.9% 500 ML BAG 500 ML IV PRN (12:51)
--- NOTE | 2018-08-25 22:29 | EL-TARABILY ONCOLOGY NOTE ---
EVENT DATE: August 25, 2018 DIAGNOSIS Stage IIA (T3 N0 M0) rectal adenocarcinoma. CHIEF COMPLAINT Patient is here today for followup of his rectal adenocarcinoma. ONCOLOGY HISTORY The patient is a 53-year-old male who presented with change in his bowel movements and rectal bleeding. He had a colonoscopy on the March, and an upper or proximal rectal mass was noted. Biopsy was done on the March, and the pathology came back positive for moderately differentiated adenocarcinoma. MSH2 was negative, MSH6 equivocal. The rest were positive. PRF mutation is negative. NRAS mutation is negative, but KRAS mutation was positive. Patient had a CT abdomen and pelvis on the March, which showed asymmetric wall thickening in the mid and upper rectum. On the March, patient had a MRI of the pelvis which showed large mid and upper rectal tumor involving the lower sigmoid lesion, and it seems that the tumor was a T2 lesion by MRI of the pelvis. On the March, patient had a chest x-ray which showed two small, indeterminant pulmonary nodules. The largest was 6 mm in the left lower lobe of the lung. On the March, patient had LAR, and the pathology came back positive for positive, well-differentiated colonic adenocarcinoma, low grade, with invasion into the level of the serosa, but it did not extend into the pericolonic fat. Margins were negative. No lymphovascular invasion. Fourteen lymph nodes were negative for metastasis. Patient had CT abdomen and pelvis on the April. Both the abdomen and pelvis were seen and did not show any metastasis. Patient will start adjuvant chemotherapy with FOLFOX on the June. HISTORY OF PRESENT ILLNESS Patient is here today for his rectal adenocarcinoma, on adjuvant chemotherapy with FOLFOX, cycle #6. He is complaining of nasal discharge. He has cough with expectoration. He has nausea. He has pain in his legs. 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 He has occasional headache. He is weak, tired, and fatigued. PAST MEDICAL HISTORY Insignificant except for his recent rectal adenocarcinoma. PAST SURGICAL HISTORY 1. Rectal surgery for his rectal cancer. 2. Tonsillectomy. FAMILY HISTORY Father had testicular cancer. Paternal uncle had prostate cancer. Paternal cousin with leukemia. SOCIAL HISTORY The patient is with two children. 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 Denies any abuse of tobacco, alcohol, or drugs. CURRENT MEDICATIONS Tylenol p.r.n. for pain. ALLERGIES No known drug allergies. REVIEW OF SYSTEMS CONSTITUTIONAL: No appetite or weight change. No fever, chills, or sweating. No recent infection. HEENT: Ears: No tinnitus or hearing problem. Nose: He has nasal discharge. No epistaxis. Throat: No sore throat or mouth ulcers. Eyes: No diplopia or visual changes. RESPIRATORY: No shortness of breath. He has cough with expectoration. No hemoptysis. CARDIOVASCULAR: No chest pain, orthopnea, or paroxysmal nocturnal dyspnea (PND). No edema. No palpitations. GASTROINTESTINAL: He has nausea. No vomiting. No diarrhea or constipation. No change in bowel movements. No heartburn or swallowing difficulties. No abdominal pain. No jaundice. No hematemesis, melena, or rectal bleeding. GENITOURINARY: No hematuria or dysuria. MUSCULOSKELETAL: He has pain in the legs. 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 He has also headache. No convulsions. HEMATOLOGIC/LYMPHATIC: No bleeding or easy bruising. He is weak, tired, and fatigued. No enlarged lymph nodes. SKIN: No skin rash or lumps. PSYCHIATRIC: No anxiety or depression. PHYSICAL EXAMINATION GENERAL: Looks stable. Well developed, well nourished, and in no acute distress. VITAL SIGNS: Blood pressure 101/68, pulse 68 per minute, respirations 16 per minute, temperature 98.3. HEENT: Head: Atraumatic. No sinus tenderness to palpation. Eyes: No icterus or conjunctivitis. Mouth and Throat: No oral thrush or mucositis. NECK: Supple. No cervical or supraclavicular lymphadenopathy. LUNGS: Clear to auscultation and percussion bilaterally. HEART: Regular rate and rhythm. No gallops, murmurs, clicks, or rubs. ABDOMEN: Soft and lax. No tenderness. No hepatosplenomegaly. No masses. EXTREMITIES: No cyanosis, clubbing, or edema. LYMPHATICS: No peripheral lymphadenopathy. NEUROLOGICAL: Conscious, alert, and oriented times three. No focal motor or sensory deficits. PSYCHIATRIC: Mood and affect appear normal. SKIN: No skin rash, bruise, or purpuric eruption. DIAGNOSTIC DATA CBC showed white count 7.8, hemoglobin 14.1, hematocrit 43.1, platelets 190,000. Chem panel totally normal except sodium 136, AST 42, alkaline phosphatase 145. CEA is normal at 1.4. ASSESSMENT Stage IIA (T3 N0 M0) rectal adenocarcinoma of the proximal rectum, status post low anterior resection done on April 07, 2018, for a tumor which invades the serosa, but it does not extend into the pericolonic fat. Tumor was low-grade, moderately differentiated, invasive adenocarcinoma. Tumor was microsatellite instability high given that MSH2 was negative, and the MSH6 was equivocal. BRAF was negative, NRAS was negative, and the KRAS mutation was positive. Fourteen lymph nodes were negative for metastasis. Lymphovascular invasion was negative. Margins were also negative. CT abdomen and pelvis done March 17, 2018, and April 15, 2018, did not show any systemic metastasis. Chest x-ray March 29, 2018, showed two small, indeterminant pulmonary nodules. The largest was 6 mm in the left lower lobe. Tumor was T3N0 with favorable histology defined by G1, low grade, with 2 mm or less pericolonic or perirectal invasion, and no lymphovascular invasion. The 10-year local control rate without any treatment after surgery was 95%. The 10-year recurrence-free survival was 87%. Retrospective study from pooled data of [id number] patients and different well- organized clinical trials did compare chemotherapy alone versus adjuvant chemoradiation in patients with T3 N0. They found that the five-year survival was 84% after adjuvant chemotherapy alone compared to 76% for adjuvant chemoradiation. Five-year survival was 69% for adjuvant chemotherapy alone compared to 63% and 66% for adjuvant chemoradiation. It seems that adjuvant chemotherapy alone is comparable to adjuvant chemoradiation, and for this reason, patient started adjuvant chemotherapy with FOLFOX on June 14, 2018. He finished five cycles so far and plans to proceed with his sixth cycle today. I will see him in two weeks with CBC, chemistry panel, and CEA prior to the next cycle of chemotherapy. His current CEA is normal at 1.4, and the patient really is doing very well except for mild neuropathy and some skin reaction, but other than that, he is really doing very well. PLAN 1. Chemotherapy with FOLFOX. This will be cycle #6. 2. CBC, chem panel to be checked weekly. 3. Patient to return in two weeks with CBC, chem panel, and CEA. 4. Patient to contact us for any new concerns or complaints. [facility]
[2018-09-01 16:24] LABS: PLATELET COUNT, AUTOMATED 179 K/uL (150-450)
[2018-09-07 08:06] VITALS: BP 116/93
[2018-09-07] MEDS: PALONOSETRON 0.25 MG/5 ML VIAL IVP PRN (09:00)
[2018-09-07] MEDS: DEXAMETHASONE SOD PHOS 10MG/ML IVP PRN (09:01)
[2018-09-07] MEDS: NS(*) 0.9% 500 ML BAG 500 ML IV PRN (09:07)
[2018-09-07] MEDS: DEXTROSE 5%(*) 100 ML BAG 100 ML IVPB PRN (09:08)
[2018-09-07] MEDS: LIDOCAINE/SOD BICARB 8.4% SYR ID PRN (09:33)
[2018-09-07] MEDS: FLUOROURACIL IV PRN (12:13)
[2018-09-07] MEDS: NS 0.9% IV PRN (12:13)
[2018-09-07 12:22] VITALS: BP 117/75
[2018-09-09 10:33] VITALS: BP 120/80
[2018-09-09] MEDS: HEPARIN FLSH (PORT) 500 UN/5ML IVP PRN (10:44)
[2018-09-15 16:17] VITALS: BP 124/88
[2018-09-15 17:02] LABS: PLATELET COUNT, AUTOMATED 180 K/uL (150-450)
[2018-09-20 08:06] VITALS: BP 123/77
[2018-09-20] MEDS: LIDOCAINE/SOD BICARB 8.4% SYR ID PRN (08:10)
[2018-09-20] MEDS: NS(*) 0.9% 500 ML BAG 500 ML IV PRN (08:10)
[2018-09-20] MEDS: HEPARIN FLSH (PORT) 500 UN/5ML IVP PRN (08:10)
[2018-09-20] MEDS: PALONOSETRON 0.25 MG/5 ML VIAL IVP PRN (08:50)
[2018-09-20] MEDS: DEXAMETHASONE SOD PHOS 10MG/ML IVP PRN (08:50)
[2018-09-20] MEDS: DEXTROSE 5%(*) 100 ML BAG 100 ML IVPB PRN (09:29)
--- NOTE | 2018-09-20 09:42 | NUR ---
Pt completed initial HADS form. Pt scored D-1, A-7 (moderate). Will plan to re-evaluate after he has had scans for his med-onc appointment.
[2018-09-20] MEDS: NS 0.9% IV PRN (11:35)
[2018-09-20] MEDS: FLUOROURACIL IV PRN (11:35)
[2018-09-20 11:53] VITALS: BP 120/82
[2018-09-22 10:27] VITALS: BP 119/74
[2018-09-22] MEDS: HEPARIN FLSH (PORT) 500 UN/5ML IVP PRN (10:58)
--- NOTE | 2018-09-22 14:06 | EL-TARABILY ONCOLOGY NOTE ---
EVENT DATE: September 22, 2018 DIAGNOSIS Stage IIA (T3 N0 M0) rectal adenocarcinoma. CHIEF COMPLAINT Patient is here today for followup of his rectal adenocarcinoma. ONCOLOGY HISTORY The patient is a 53-year-old male who presented with change in his bowel movements and rectal bleeding. He had a colonoscopy on March 17, 2018, and an upper or proximal rectal mass was noted. Biopsy was done on March 17, 2018, and the pathology came back positive for moderately differentiated adenocarcinoma. MSH2 was negative, MSH6 equivocal. The rest were positive. PRF mutation is negative. NRAS mutation is negative, but KRAS mutation was positive. Patient had a CT abdomen and pelvis on the March, which showed asymmetric wall thickening in the mid and upper rectum. On March 22, 2018, patient had a MRI of the pelvis which showed large mid and upper rectal tumor involving the lower sigmoid lesion, and it seems that the tumor was a T2 lesion by MRI of the pelvis. On March 29, 2018, patient had a chest x-ray which showed two small, indeterminant pulmonary nodules. The largest was 6 mm in the left lower lobe of the lung. On April 07, 2018, patient had LAR, and the pathology came back positive for positive, well-differentiated colonic adenocarcinoma, low grade, with invasion into the level of the serosa, but it did not extend into the pericolonic fat. Margins were negative. No lymphovascular invasion. Fourteen lymph nodes were negative for metastasis. Patient had CT abdomen and pelvis on the April 15, 2018. Both the abdomen and pelvis were seen and did not show any metastasis. Patient will start adjuvant chemotherapy with FOLFOX on June 14, 2018. Patient completed eight cycles of adjuvant FOLFOX therapy, completed on September 22, 2018. HISTORY OF PRESENT ILLNESS Patient is here today for his rectal adenocarcinoma, on his last dose of adjuvant chemotherapy with FOLFOX, cycle #8. He is complaining of nasal discharge. He has cough with expectoration. He has some tingling and numbness in his hands. He is weak, tired and fatigued. Patient is happy today because this is his last cycle of adjuvant chemotherapy. PAST MEDICAL HISTORY Insignificant except for his recent rectal adenocarcinoma. PAST SURGICAL HISTORY 1. Rectal surgery for his rectal cancer. 2. Tonsillectomy. FAMILY HISTORY Father had testicular cancer. Paternal uncle had prostate cancer. Paternal cousin with leukemia. SOCIAL HISTORY The patient is with two children. 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 Denies any abuse of tobacco, alcohol, or drugs. CURRENT MEDICATIONS Tylenol p.r.n. for pain. ALLERGIES No known drug allergies. REVIEW OF SYSTEMS CONSTITUTIONAL: No appetite or weight change. No fever, chills, or sweating. No recent infection. HEENT: Ears: No tinnitus or hearing problem. Nose: He has nasal discharge. Throat: No sore throat or mouth ulcers. Eyes: No diplopia or visual changes. RESPIRATORY: He has cough with expectoration. CARDIOVASCULAR: No chest pain, orthopnea, or paroxysmal nocturnal dyspnea (PND). No edema. No palpitations. GASTROINTESTINAL: He has nausea. No vomiting. No diarrhea or constipation. No change in bowel movements. No heartburn or swallowing difficulties. No abdominal pain. No jaundice. No hematemesis, melena, or rectal bleeding. GENITOURINARY: No hematuria or dysuria. MUSCULOSKELETAL: He has pain in the legs. NEUROLOGICAL: He has tingling and numbness in the hands. HEMATOLOGIC/LYMPHATIC: He is weak, tired and fatigued. SKIN: No skin rash or lumps. PSYCHIATRIC: No anxiety or depression. PHYSICAL EXAMINATION GENERAL: Looks stable. Well developed, well nourished, and in no acute distress. VITAL SIGNS: Blood pressure 119/74, pulse 83 per minute, respirations 16 per minute, temperature 97.9, pulse ox 94% on room air. HEENT: Head: Atraumatic. No sinus tenderness to palpation. Eyes: No icterus or conjunctivitis. Mouth and Throat: No oral thrush or mucositis. NECK: Supple. No cervical or supraclavicular lymphadenopathy. LUNGS: Clear to auscultation and percussion bilaterally. HEART: Regular rate and rhythm. No gallops, murmurs, clicks, or rubs. ABDOMEN: Soft and lax. No tenderness. No hepatosplenomegaly. No masses. EXTREMITIES: No cyanosis, clubbing, or edema. LYMPHATICS: No peripheral lymphadenopathy. NEUROLOGICAL: Conscious, alert, and oriented times three. No focal motor or sensory deficits. PSYCHIATRIC: Mood and affect appear normal. SKIN: No skin rash, bruise, or purpuric eruption. DIAGNOSTIC DATA CBC showed white count 6.8, hemoglobin 14.1, hematocrit 42.9, platelets 159,000. Chem panel totally normal except sodium 136, creatinine 0.6, blood sugar 115, alkaline phosphatase 178. Other parameters are normal. CEA is normal at 1.4. ASSESSMENT Stage IIA (T3 N0 M0) rectal adenocarcinoma of the proximal rectum, status post low anterior resection done on April 07, 2018, for a tumor which invades the serosa but it does not extend into the pericolonic fat. Tumor was low-grade, moderately differentiated, invasive adenocarcinoma. Tumor was microsatellite instability high given that MSH2 was negative and the MSH6 was equivocal. BRAF was negative, NRAS was negative and the KRAS mutation was positive. Fourteen lymph nodes were negative for metastasis. Lymphovascular invasion was negative. Margins were negative. CT abdomen and pelvis done March 17, 2018, and April 15, 2018, did not show any systemic metastasis. Chest x-ray March 29, 2018, showed two small, indeterminant pulmonary nodules; the largest was 6 mm in the left lower lobe. Tumor was T3 N0 with favorable histology defined by G1, low grade, with 2 mm or less pericolonic or perirectal invasion and no lymphovascular invasion. The 10-year local control rate without any treatment after surgery was 95%. The 10-year recurrence-free survival was 87%. Retrospective study from pooled data of 3791 patients and different well-organized clinical trials did compare chemotherapy alone versus adjuvant chemoradiation in patients with T3 N0. They found that the five-year survival was 84% after adjuvant chemotherapy alone compared to 76% after adjuvant chemoradiation. Five-year survival was 69% for adjuvant chemotherapy also compared to 63% and 66% for adjuvant chemoradiation. It seems that adjuvant chemotherapy alone is comparable to adjuvant chemoradiation and for this reason patient started adjuvant chemotherapy with FOLFOX on June 14, 2018. He completed his eighth cycle, which is the last dose of chemotherapy, on September 22, 2018. I am planning to start followup. I will see him again in three months with CBC, chem panel, CEA. Because of his pulmonary nodules, I am planning to get a CT chest for further comparison. His current CEA is normal at 1.4 and stable. Patient is doing really very well. PLAN 1. Continue follow up. 2. Patient to return in three months with CBC. chem panel and CEA. 3. CT chest for evaluation of pulmonary nodules. 4. Patient to contact us for any new concerns or complaints. [facility]
[2018-09-29 16:22] VITALS: BP 134/78
[2018-09-29 16:52] LABS: PLATELET COUNT, AUTOMATED 168 K/uL (150-450)
[2018-10-06 14:44] VITALS: BP 104/71
[2018-10-06 14:53] LABS: PLATELET COUNT, AUTOMATED 174 K/uL (150-450)
[2018-10-10 15:45] VITALS: BP 111/72
[2018-10-10] MEDS: LIDOCAINE/SOD BICARB 8.4% SYR ID PRN ×2 (15:49→15:55)
[2018-10-10] MEDS: HEPARIN FLSH (PORT) 500 UN/5ML IVP PRN (16:25)
--- NOTE | 2018-10-10 17:39 | RADIOLOGY IMAGING REPORT ---
FACILITY: [facility] PATIENT NAME: Ellis Nuñez : 1965 MR: [id number] V: [id number] EXAM DATE: ORDERING PHYSICIAN: COOPER MCCRAY TECHNOLOGIST: Location: [facility] Patient: Ellis Nuñez : 1965 Visit/Account:[id number] Date of Sevice: 10/10/2018 CT CHEST (CONTRAST) History: Pulmonary nodule TECHNIQUE: Contiguous axial images were performed through the chest to the level of the adrenal gla nds following the administration of IV contrast. Coronal and sagittal reformatting was also perform ed.Dose Lowering Technique One of the following dose optimization techniques was utilized in the performance of this exam: Autom ated exposure control; adjustment of the mA and/or kV according to the patient's size; or use of an i terative reconstruction technique. Specific details can be referenced in the facility's radiology C T exam operational policy. Contrast: 75 mL [id number] COMPARISON STUDIES: March 29, 2018. Lungs / Pleura: There has been development of a small peripheral area of airspace consolidation and septal thickening in the anterior right upper lobe. there are two separate 3 mm pleural-based nodules in the anterior right middle lobe images 219 and 2 24 have remained stable There is a new pleural-based groundglass partially solid nodule in the left lower lobe measuring 9 x five mm and is best seen on image 217. Previously noted 6 mm pleural-based nodule left lower lobe appears unchanged in size and is best seen on image 200 Mediastinum/nodes: There is a 1 x 0.7 cm right hilar lymph node that appears unchanged. There is a fatty replaced pretracheal lymph node measuring 1 x 0.7 cm remains unchanged several AP window lymph nodes a claim service representative node measuring 9 x 7 mm and appears unchanged Heart and vessels: There is an implanted right IJ port distal tip in superior vena cava. There are mild coronary artery calcifications Musculoskeletal / Body wall: Vertebral body hemangioma at T6 is unchanged. Very mild compression f ractures involving the superior endplate of T5 and T7 appear unchanged Upper abdomen: Visualized abdominal viscera negative. IMPRESSION: New area of peripheral airspace consolidation and septal thickening in the anterior right upper lobe. This could represent an acute infectious/inflammatory process or for clinical correlation needed. Two separate 3 mm pleural-based nodules anterior right middle lobe have remained stable as has the 6 mm pleural-based nodule in the left lower lobe There is a new pleural-based groundglass partially solid along the posterior aspect of the left lower lobe measuring 9 x 5 mm. Follow-up CT in six months recommended Report Dictated By: Roseline Edmondson MD at 10/10/2018 5:13 PM Report E-Signed By: Roseline Edmondson MD at 10/10/2018 5:36 PM WSN:[email or web address]
[~2018-10-13] VITALS: Ht 165.7 cm; Wt 78.6 kg
--- NOTE | 2018-10-13 14:30 | PROGRESS NOTE ---
ADDENDUM It has come to my attention that a dictation dated 08/30/19 should have been dated on 09/09/18. The patient was seen on 09/09/18 for continued care. ABEBA
[2018-10-13 15:26] LABS: PLATELET COUNT, AUTOMATED 226 K/uL (150-450)
[~2018-10-13 15:28] MED LIST changes: +ALTEPLASE RECOMB 2 MG VIAL IVP PRN; +D5W IV ONE; +D5W IVPB ONE; +D5W IVPB PRN; +FLUOROURACIL 50 MG/ML SDV IVP ONE; +FLUOROURACIL 50 MG/ML SDV IVP PRN; +FLUOROURACIL IV ONE; +IOPAMIDOL 76% 100 ML INFUS BTL 100 ML ONE; +LEUCOVORIN CAL IV ONE; +NS 0.9% IV ONE; +NS(*) 0.9% 100 ML BAG 100 ML IVPB PRN; +OXALIPLATIN 100 MG/20 ML VIAL 100 MG, OXALIPLATIN 50 MG/10 ML VIAL 50 MG in D5W(*) 250 ... IVPB ONE; +OXALIPLATIN IVPB ONE; +OXALIPLATIN IVPB PRN; +PEGFILGRASTIM 6 MG/0.6 ML SYR SUBQ ONE; +WATER FOR INJ,STERILE 20 ML IVP PRN
--- NOTE | 2018-10-13 20:08 | [facility] ONCOLOGY NOTE ---
EVENT DATE: October 13, 2018 DIAGNOSIS Stage IIA (T3 N0 M0) rectal adenocarcinoma. CHIEF COMPLAINT Patient is here today for followup of his rectal adenocarcinoma. ONCOLOGY HISTORY The patient is a 53-year-old male who presented with change in his bowel movements and rectal bleeding. He had a colonoscopy on the March, and an upper or proximal rectal mass was noted. Biopsy was done on the March, and the pathology came back positive for moderately differentiated adenocarcinoma. MSH2 was negative, MSH6 equivocal. The rest were positive. PRF mutation was negative. NRAS mutation was negative, but KRAS mutation was positive. Patient had a CT abdomen and pelvis on the March, which showed asymmetric wall thickening in the mid and upper rectum. On the March, patient had a MRI of the pelvis which showed large mid and upper rectal tumor involving the lower sigmoid lesion, and it seems that the tumor was a T2 lesion by MRI of the pelvis. On the March, patient had a chest x-ray which showed two small, indeterminant pulmonary nodules. The largest was 6 mm in the left lower lobe of the lung. On the March, patient had LAR, and the pathology came back positive for positive, well-differentiated colonic adenocarcinoma, low grade, with invasion into the level of the serosa, but it did not extend into the pericolonic fat. Margins were negative. No lymphovascular invasion. Fourteen lymph nodes were negative for metastasis. Patient had CT abdomen and pelvis on the April. Both the abdomen and pelvis were seen and did not show any metastasis. Patient will start adjuvant chemotherapy with FOLFOX on the June. Patient completed eight cycles of adjuvant FOLFOX therapy, completed on the September. HISTORY OF PRESENT ILLNESS Patient is here today for followup of his rectal adenocarcinoma after he finished his adjuvant chemotherapy with eight cycles of FOLFOX on the September. Apart from having some fatigue and occasional epistaxis, patient does not have any other complaints. PAST MEDICAL HISTORY Insignificant except for his recent rectal adenocarcinoma. PAST SURGICAL HISTORY 1. Rectal surgery for his rectal cancer. 2. Tonsillectomy. FAMILY HISTORY Father had testicular cancer. Paternal uncle had prostate cancer. Paternal cousin with leukemia. SOCIAL HISTORY The patient is with two children. 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 Denies any abuse of tobacco, alcohol, or drugs. CURRENT MEDICATIONS Tylenol p.r.n. for pain. ALLERGIES No known drug allergies. REVIEW OF SYSTEMS CONSTITUTIONAL: No appetite or weight change. No fever, chills, or sweating. No recent infection. HEENT: Ears: No tinnitus or hearing problem. Nose: He has occasional epistaxis. Throat: No sore throat or mouth ulcers. Eyes: No diplopia or visual changes. RESPIRATORY: No shortness of breath. No cough, expectoration, or hemoptysis. CARDIOVASCULAR: No chest pain, orthopnea, or paroxysmal nocturnal dyspnea (PND). No edema. No palpitations. GASTROINTESTINAL: No nausea or vomiting. No diarrhea or constipation. No change in bowel movements. No heartburn or swallowing difficulties. No abdominal pain. No jaundice. No hematemesis, melena, or rectal bleeding. GENITOURINARY: No hematuria or dysuria. MUSCULOSKELETAL: No pain in the muscles, joints, or bones. NEUROLOGICAL: No tingling or numbness in the hands or feet. No headaches or convulsions. HEMATOLOGIC/LYMPHATIC: No bleeding or easy bruising. He has weakness, tiredness, and fatigue. No enlarged lymph nodes. SKIN: No skin rash or lumps. PSYCHIATRIC: No anxiety or depression. PHYSICAL EXAMINATION GENERAL: Looks stable. Well developed, well nourished, and in no acute distress. VITAL SIGNS: Blood pressure 121/69, pulse 72 per minute, respirations 16 per minute, temperature 97.6, pulse oximetry 97% on room air. HEENT: Head: Atraumatic. No sinus tenderness to palpation. Eyes: No icterus or conjunctivitis. Mouth and throat: No oral thrush or mucositis. NECK: Supple. No cervical or supraclavicular lymphadenopathy. LUNGS: Clear to auscultation and percussion bilaterally. HEART: Regular rate and rhythm. No gallops, murmurs, clicks, or rubs. ABDOMEN: Soft and lax. No tenderness. No hepatosplenomegaly. No masses. EXTREMITIES: No cyanosis, clubbing, or edema. LYMPHATICS: No peripheral lymphadenopathy. NEUROLOGICAL: Conscious, alert, and oriented times three. No focal motor or sensory deficits. PSYCHIATRIC: Mood and affect appear normal. SKIN: No skin rash, bruise, or purpuric eruption. DIAGNOSTIC DATA CBC showed white count 7.8, hemoglobin 14, hematocrit 42.5, platelets 174,000. Chem panel totally normal except sodium 136, chloride 108, AST 41, alkaline phosphatase 173. CEA is normal at 1.4. CT chest on the September showed stable pleural-based nodules in the right middle lobe, the left lower lobe with new pleural-based ground-glass abnormality 9 mm, and new area of peripheral airspace consolidation in the right upper lobe, with recommendation of repeat CT scan in six months. ASSESSMENT 1. Stage IIA (T3 N0 M0) rectal adenocarcinoma of the proximal rectum, status post low anterior resection done on April 07, 2018, for a tumor which invades the serosa, but it does not extend into the pericolonic fat. Tumor was low-grade, moderately differentiated, invasive adenocarcinoma. Tumor was microsatellite instability high given that MSH2 was negative and the MSH6 was equivocal. BRAF was negative, NRAS was negative, and the KRAS mutation was positive. Fourteen lymph nodes were negative for metastasis. Lymphovascular invasion was negative. Margins were negative. CT abdomen and pelvis done March 17, 2018, and April 15, 2018, did not show any systemic metastasis. Chest x-ray March showed two small, indeterminant pulmonary nodules, the largest 6 mm in the left lower lobe, and the smallest was in the right middle lobe. Tumor was staged as stage T3 N0 with favorable histology defined by G1, low grade, with 2 mm or less pericolonic or perirectal invasion and no lymphovascular invasion. The 10-year local control rate without any treatment after surgery was 95%. The 10-year recurrence-free survival was 87%. Retrospective study from pooled data of [id number] patients and different well-organized clinical trials did compare chemotherapy alone versus adjuvant chemoradiation in patients with T3 N0. They found that the five-year survival was 84% after adjuvant chemotherapy alone compared to 76% after adjuvant chemoradiation. Five-year survival was 69% for adjuvant chemotherapy and also compared to 63% and 66% for adjuvant chemoradiation. It seems adjuvant chemotherapy alone is comparable to adjuvant chemoradiation, and for this reason, patient started adjuvant chemotherapy with FOLFOX on June 14, 2018. He completed eight cycles of FOLFOX on the September. His current CEA is normal at 1.4. I am planning to see the patient again in three months with CBC, chemistry panel, and CEA at that time. 2. Pulmonary nodules and some abnormality on his current CT chest done on the September. I am planning to repeat his CT scan in six months from now. PLAN 1. Continue followup. 2. Patient to return in three months with CBC. chem panel, and CEA. 3. Patient to contact us for any new concerns or complaints. ABEBA
== END 2018-10-25 ==
LOC: ONC 15:28
PROVIDERS: ATTEND Internal Medicine Hematology
DX: Z51.11 Encounter for antineoplastic chemotherapy (principal); C20 Malignant neoplasm of rectum; D50.9 Iron deficiency anemia, unspecified; R53.1 Weakness; R53.83 Other fatigue; R05 Cough; Z23 Encounter for immunization; Z92.21 Personal history of antineoplastic chemotherapy; R04.0 Epistaxis; R91.8 Other nonspecific abnormal finding of lung field
CPT/HCPCS: 36415; 71260; 82378; 85025; 85027; 96366; 96367; 96368; 96375; 96413; 96415; 96416; 96523; 99212; J0640; J1100; J1642; J2469; J7040; J7060; J9190; J9263; Q9967; 82040; 82247; 82310; 82374; 82435; 82565; 82947; 84075; 84132; 84155; 84295; 84450; 84460; 84520; 96372; J2505

== ENCOUNTER → 2018-10-17 | Outpatient (CLI) | payer BC ==
[2018-04-16 13:00] VITALS: BMI 25.8
[~2018-10-17] MED LIST changes: -ALTEPLASE RECOMB 2 MG VIAL IVP PRN; +BARIUM SULFATE 1,900 ML ORAL.SUSP ONE; -D5W IV ONE; -D5W IVPB ONE; -D5W IVPB PRN; -FLUOROURACIL 50 MG/ML SDV IVP ONE; -FLUOROURACIL 50 MG/ML SDV IVP PRN; -FLUOROURACIL IV ONE; +GADOBENATE 529MG/1ML 15ML VIAL IVP ONE; -IOPAMIDOL 76% 100 ML INFUS BTL 100 ML ONE; -LEUCOVORIN CAL IV ONE; -NS 0.9% IV ONE; -NS(*) 0.9% 100 ML BAG 100 ML IVPB PRN; +NS(*) 0.9% 50 ML BAG 50 ML ONE; -OXALIPLATIN 100 MG/20 ML VIAL 100 MG, OXALIPLATIN 50 MG/10 ML VIAL 50 MG in D5W(*) 250 ... IVPB ONE; -OXALIPLATIN IVPB ONE; -OXALIPLATIN IVPB PRN; -PEGFILGRASTIM 6 MG/0.6 ML SYR SUBQ ONE; -WATER FOR INJ,STERILE 20 ML IVP PRN
--- NOTE | 2018-10-17 16:03 | RADIOLOGY IMAGING REPORT ---
FACILITY: [facility] PATIENT NAME: Ellis Nuñez : 1965 MR: [id number] V: [id number] EXAM DATE: ORDERING PHYSICIAN: GISELE OLVERA TECHNOLOGIST: Location: [facility] [place] Patient: Ellis Nuñez : 1965 Visit/Account:[id number] Date of Sevice: 10/17/2018 Exam type: BARIUM ENEMA History: Rectal cancer, follow-up surgical anastomosis Comparison: None. Findings: Barium was instilled into the colon in the usual retrograde fashion. There was no significant narrow ing or leak at the coloanal anastomosis. Scattered diverticula are seen in the sigmoid colon. The b arium was only advanced to the upper descending colon at the request of the healthcare provider as th e study was tailored to evaluate the anastomosis. The fluoroscopy dose area product was 541.65 micro -B[place]ster per meter squared IMPRESSION: 1. There is no significant narrowing or leak at the colon- anal anastomosis Report Dictated By: Roseline Edmondson MD at 10/17/2018 3:55 PM Report E-Signed By: Roseline Edmondson MD at 10/17/2018 3:59 PM WSN:[email or web address]
--- NOTE | 2018-10-18 02:14 | RADIOLOGY IMAGING REPORT ---
[facility] PATIENT NAME: Ellis Nuñez : 1965 MR: [id number] V: [id number] EXAM DATE: ORDERING PHYSICIAN: GISELE OLVERA TECHNOLOGIST: Location: [facility] - [place] Patient: Ellis Nuñez : 1965 Visit/Account:[id number] Date of Sevice: 10/17/2018 MR PELVIS W & W/O CON HISTORY: History of rectal cancer. Mass removed March 2018. TECHNIQUE: Multiplanar multisequence magnetic resonance imaging of the pelvis without and with intra venous contrast. CONTRAST: 15 mL MultiHance IV contrast. COMPARISON: CT dated April 16, 2018. FINDINGS: Visualized GI: Post surgical changes from distal rectal resection with coloanal anastomosis. Minimal presacral fluid/stranding which is likely related to treatment changes. No wall thickening identifie d. No evidence for obstruction. There is a right lower quadrant loop ileostomy. Small parastomal karen ia containing loops of nonobstructed small bowel, grossly unchanged. : Negative. Vessels/spaces/nodes: Negative. Bones/soft tissues: Negative. IMPRESSION: 1. No visualized local recurrent or metastatic disease. Report Dictated By: Rodrick Gao MD at 10/18/2018 2:04 AM Report E-Signed By: Rodrick Gao MD at 10/18/2018 2:10 AM WSN:[id number]
== END ==
LOC: MRI 01:42
PROVIDERS: ATTEND Surgery
DX: C20 Malignant neoplasm of rectum (principal)
CPT/HCPCS: 72197; 74270; A9577; J7050

== ENCOUNTER 2018-11-10 01:31 | Inpatient (IN) | payer BC ==
[~2018-11-10] VITALS: Ht 167.6 cm; Wt 76.7 kg
[2018-11-10] VITALS (10 sets, daily range): BP systolic 90–119; BP diastolic 60–76
[~2018-11-10 01:31] MED LIST changes: -BARIUM SULFATE 1,900 ML ORAL.SUSP ONE; -GADOBENATE 529MG/1ML 15ML VIAL IVP ONE; -NS(*) 0.9% 50 ML BAG 50 ML ONE
[2018-11-10] MEDS ORDERED: AMPICILLIN/SULBACT (*) 3 GM VL 3 GM in NS(*) 0.9% 100 ML BAG 100 ML IVPB ONE (11:00)
[2018-11-10] MEDS ORDERED: MIDAZOLAM 2 MG/2 ML VIAL IVP PRN (11:55)
[2018-11-10] MEDS ORDERED: FAMOTIDINE 20 MG TAB PO ONE (11:55)
[2018-11-10] MEDS ORDERED: LIDOCAINE/SOD BICARB 8.4% SYR ID ONE (11:55)
[2018-11-10] MEDS ORDERED: NORMOSOL R SOLN(*) 1000 ML BAG 1,000 ML IV PRN (11:55)
[2018-11-10] MEDS ORDERED: fentaNYL CITR 100 MCG/2 ML AMP ONE ×4 (14:10→18:58)
[2018-11-10] MEDS ORDERED: LIDOCAINE MPF 1% 5 ML VIAL ONE (14:11)
[2018-11-10] MEDS ORDERED: ONDANSETRON 4 MG/2 ML VIAL ONE (14:11)
[2018-11-10] MEDS ORDERED: PROPOFOL EMUL(*) 10MG/ML 20 ML 20 ML ONE (14:11)
[2018-11-10] MEDS ORDERED: DEXAMETHASONE SOD PHOS 10MG/ML ONE (14:11)
[2018-11-10] MEDS ORDERED: KETAMINE HCL 200 MG/20 ML MDV ONE ×2 (14:12→14:13)
[2018-11-10] MEDS ORDERED: ROCURONIUM BROM 10 MG/ML 10 ML ONE (14:13)
[2018-11-10] MEDS ORDERED: ROPIVACAINE 0.5% 20 ML VIAL ONE (15:04)
[2018-11-10] MEDS ORDERED: SUGAMMADEX SOD 200 MG/2 ML SDV ONE (18:19)
[2018-11-10] MEDS ORDERED: ACETAMINOPHEN(*)1000 MG/100 ML 100 ML IVPB ONE (18:24)
[2018-11-10] MEDS ORDERED: ONDANSETRON 4 MG/2 ML VIAL IVP PRN (19:00)
[2018-11-10] MEDS ORDERED: FLUSH 10 ML SYR IVP PRN (19:00)
[2018-11-10] MEDS ORDERED: NALOXONE HCL 0.4 MG/ML VIAL IVP PRN (19:00)
[2018-11-10] MEDS ORDERED: HYDROmorphone HCL 2 MG/ML SDV ONE (19:18)
--- NOTE | 2018-11-10 19:20 | Post Operative Progress Note ---
Post Operative Progress Note Date: Nov 10, 2018 Time: 19:04 Surgeon: Maricarmen Dictation number: [id number] Anesthesia: GETA by Dr. Chan Pre-Op Diagnosis: Rectal Cancer, s/p treatment Ileostomy Post-Op Diagnosis: JESSICA Findings: None Procedure(s): Colonoscopy Power Port removal Ileostomy takedown Specimen Removed:(May be N/A): Ileostomy Complications: None Fluids: See anesthesia Estimated Blood Loss: Minimal Date OP Note Dictated: Nov 10, 2018 Time OP Note Dictated: 19:06 GISELE OLVERA MD Nov 10, 2018 19:20
[2018-11-10] MEDS ORDERED: DIAZEPAM 50 MG/10 ML MDV IVP ONE (19:40)
[2018-11-10] MEDS ORDERED: PCA LOCKBOX KEYS XX ONE (19:55)
[2018-11-10] MEDS ORDERED: PCA LOCKBOX KEYS XX PRN (20:00)
[2018-11-10] MEDS: NS(*) 0.9% 1000 ML BAG 1,000 ML IV PRN (20:32)
[2018-11-10] MEDS: HYDROmorphone PCA 6 MG/30 ML IV PRN (20:32)
--- NOTE | 2018-11-10 20:51 | OPERATIVE REPORT 1 ---
EVENT DATE: November 10, 2018 SURGEON: Felton Hernadez MD ANESTHESIOLOGIST: Francisco Chan MD ANESTHESIA: General endotracheal anesthesia. PREOPERATIVE DIAGNOSES 1. Rectal cancer, status post treatment. 2. Ileostomy. POSTOPERATIVE DIAGNOSES 1. Rectal cancer, status post treatment. 2. Ileostomy. PROCEDURES PERFORMED 1. Colonoscopy. 2. PowerPort removal. 3. Ileostomy takedown. COMPLICATIONS None. CONDITION Stable. BLOOD LOSS Minimal. SPECIMENS Ileostomy. INDICATIONS This is a 53-year-old gentleman who has completed treatment for rectal cancer and is in remission and without any evidence of cancer at this point. He is requesting to have his PowerPort removed and his ileostomy reversed. I also discussed performing a colonoscopy just to make sure nothing glaring is going on in his colon before reversing his ileostomy. He recently underwent a barium enema and a pelvic MRI, both of which revealed the anastomosis to be well healed without any fluid collections, evidence of cancer in his pelvis, stricturing, or any other abnormalities. There does not appear to be any anastomotic leak. DESCRIPTION OF PROCEDURE Patient was brought to the operating room and placed supine on the operating table. General endotracheal anesthesia was administered, and he was placed in the frogleg position. The colonoscope was obtained and tested, and after assuring it was completely functional, lubricated and inserted into his rectum through his anus. I immediately saw the anastomosis and the staple line, and it is wide open and well healed. I advanced the scope all the way to the cecum and withdrew the scope as I looked at all mucosal surfaces for any abnormalities. There was quite a bit of mucus and fecal material as well as retained barium in his colon, and so this was not a good screening test, but I did not see any large polyps or tumors. I withdrew the scope, and then next his right upper chest was prepped and draped in a sterile fashion. A timeout was completed, and I anesthetized the skin in the previous scar and made a transverse incision running through the previous port scar. I then dissected through the dermis and subcutaneous fat and then dissected down to the port. I opened the capsule around the port, cut the sutures at the corners, and then removed the port and catheter from the wound without any problems. I then stripped the capsule out and then closed the pocket with interrupted 3-0 Vicryl sutures and then closed the skin incision with 3-0 Vicryl interrupted deep dermal sutures and 4-0 Monocryl running subcuticular suture. Skin was cleaned and dried, and Steri- Strips were applied, followed by a sterile surgical dressing. Next is the abdomen. I took off the stoma appliance and sutured the stoma shut with 0 silk sutures, and then his abdomen was prepped and draped in a sterile fashion. Another timeout was completed, and I injected the skin around the stoma with 0.5% ropivacaine plain. I made an incision right at the mucosal-skin interface, took down the stoma circumferentially, and then used electrocautery to dissect through the dermis and then all the way around the stoma. I dissected through the subcutaneous fat, through the abdominal fascia, and ultimately with effort was able to get into the peritoneal cavity and separate the bowel from the entire abdominal wall. Once I had broken into the abdominal cavity, there were not much adhesions. I then pulled a loop of small bowel out, found a nice, healthy-appearing piece proximal and distal to the ileostomy. I made windows in the mesentery just into the small bowel and then divided the small bowel at these points with the IAN stapler with a blue load. I then divided the mesentery with the LigaSure device and then passed the specimen off the field. I then lined the two ends of small bowel parallel with each other and made enterotomies a centimeter away from the staple lines on both of them and then inserted the IAN 75 mm stapler with the blue load and completed a functional [id number], end-to-end anastomosis. I then closed the conjoined enterotomy with running 4-[address] the way and then oversewed the suture and suture line with interrupted 3-0 Vicryl Lembert sutures. I then closed the mesenteric defect with a 3-0 Vicryl suture. I then dropped the anastomosis back into the patient's abdomen and then closed the posterior fascia and peritoneum with running 3-0 Vicryl sutures and then closed the anterior fascia with #1 Prolene suture. I then irrigated and dried the wound and closed the skin incision loosely with nils and 1/4-inch [place] drains which I sewed to the skin with 0 silk sutures. I then cleaned and dried the skin, and dry gauzes were placed over the stoma takedown wound, and these were taped into place. He was then awakened and extubated in the operating room and transported to the recovery room in stable condition having tolerated the procedure without any apparent problems. ABEBA
[2018-11-10] MEDS ORDERED: PIPERACILLIN/TAZO*3.375GM VIAL 3.375 GM in NS(*) 0.9% 100 ML ADDVANT BAG 100 ML IVPB SCH (21:00)
[2018-11-10] MEDS: PIPERACILLIN/TAZO*3.375GM VIAL 3.375 GM in NS(*) 0.9% 100 ML ADDVANT BAG 100 ML IVPB SCH (21:25)
[2018-11-11] VITALS (9 sets, daily range): BP systolic 92–109; BP diastolic 57–77; Ht 167.6 cm; Wt 76.7 kg
[2018-11-11] MEDS: ACETAMINOPHEN(*)1000 MG/100 ML 100 ML IVPB SCH ×4 (00:37→18:26)
[2018-11-11] MEDS: PIPERACILLIN/TAZO*3.375GM VIAL 3.375 GM in NS(*) 0.9% 100 ML ADDVANT BAG 100 ML IVPB SCH ×4 (03:26→20:58)
[2018-11-11] MEDS: NS(*) 0.9% 1000 ML BAG 1,000 ML IV PRN ×3 (05:20→23:01)
[2018-11-11 06:09] LABS: PLATELET COUNT, AUTOMATED 211 K/uL (150-450)
[2018-11-11] MEDS ORDERED: ACET-2146 PO (07:20)
--- NOTE | 2018-11-11 08:37 | General Surgery Progress Note ---
Subjective Progress Notes Subjective Pain is improved in RLQ stoma takedown site when compared to immediately postop. No other complaints. No flatus yet. Physical Exam Vital Signs Date Time Temp Pulse Resp B/P (MAP) Pulse Ox O2 Delivery O2 Flow Rate FiO2 11/11/18 07:22 18 88 11/11/18 07:22 Room Air 11/11/18 07:15 97.9 79 95/65 (75) 1.5 Intake and Output 11/11/18 07:00 Intake Total 7038 ml Output Total 50 ml Balance 6988 ml Intake IV Total 4188 ml Other 2850 ml Output Estimated Blood Loss 50 ml # Voids 1 General Appearance: Alert, Awake, No Acute Distress, Afebrile GI: Other (Soft, appropriate postop TTP, dressing is C/D/I.) Extremities: Warm, Perfused Result Diagram: 11/11/18 0533 11/11/18 0533 Assessment and Plan Problems: (1) Status post reversal of ileostomy Status: Acute Assessment & Plan: 11/11/18: POD#1 s/p ileostomy takedown. Doing well. Awaiting return of bowel function. Continue bowel rest and IV fluids. Lovenox, PPI, ambulation, IS, etc. (2) S/P partial colectomy Status: Chronic (3) Rectal cancer Status: Resolved Condition stable. Time Spent: < 30 min Exam Sepsis Risk: No Definite Risk GISELE OLVERA MD Nov 11, 2018 08:37
[2018-11-11] MEDS: PANTOPRAZOLE SOD 40 MG IV VIAL IVP SCH (08:48)
--- NOTE | 2018-11-11 09:33 | EKG ---
FACILITY: [facility] PATIENT NAME: CALIN HUBBARD : [id number] MR: [id number] V: [id number] EXAM DATE: ORDERING PHYSICIAN: JAZZY ANTHONY TECHNOLOGIST: Test Reason : Blood Pressure : / mmHG Vent. Rate : 081 BPM Atrial Rate : 081 BPM P-R Int : 190 ms QRS Dur : 108 ms QT Int : 388 ms P-R-T Axes : 064 058 058 degrees QTc Int : 450 ms Normal sinus rhythm No ST-T wave abnormalities When compared with ECG of 05-APR-2018 12:24, No significant change was found Confirmed by JOEY SILVA ([id number]) on 11/11/2018 10:44:38 AM Referred By: Confirmed By:JOEY SILVA
--- NOTE | 2018-11-11 11:58 | Medical Nutrition Therapy ---
Nutrition Anthropometrics Height (Inches): 66.00 Height (Calculated Centimeters: 167.296324 Weight (Pounds): 169 Weight (Calculated Kilograms): 76.827 Gui Nutrition Score: Probably Inadequate Gui Nutrition Risk Score: 19 Dietary Referral Nutrition Risk Factors: Unplanned Loss >10lbs Nutrition Risk Comment: Physical Findings Physical Appearance: Overweight BMI 25-29 Skin Appearance Skin Appearance: Edema Edema Location Modifier: Edema Location: Type of Edema: Degree of Edema: Gastrointestinal Symptoms GI Symtoms: Tube Present: Bowel Sounds: Recent Bowel Pattern: Stool Characteristics: Nutritional Diagnosis Nutritional Risk Acuity 2: Ileostomy (reversed 11/11) Nutritional Risk Acuity 3: Cancer Past Medical History: Rectal cancer (11/11: remission), 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 Energy Requirement: 2033 (MSJ, 1.1 TEF, 1.2 AF) Protein Requirement: 77 (1 g AA/kg of BW) Fluid Requirement: 2033 (1 cc/kcal) Diet Type: NPO (Nothing by Mouth) Nutrition Intervention: Incr diet as tolerated Nutrition Monitoring & Eval RD Patient Assessment Time: [address] Assessment Type: RD Assessment Patient Nutrition Acuity: 2-Moderate Follow Up Date: Nov 14, 2018 Nutritional Comment: 11/11: Pt admitted for a colonoscopy, power port removal, reversed ileostomy. Hx of rectal cancer, but now in remission. Pt is currently taking enoxaparin and has elevated RBG (115). Pt is currently NPO. -DANAY ENAMORADO Nov 11, 2018 10:29
[2018-11-12] MEDS: ACETAMINOPHEN(*)1000 MG/100 ML 100 ML IVPB SCH ×5 (01:40→23:15)
[2018-11-12] MEDS: PIPERACILLIN/TAZO*3.375GM VIAL 3.375 GM in NS(*) 0.9% 100 ML ADDVANT BAG 100 ML IVPB SCH ×4 (02:29→21:01)
[2018-11-12 02:31] VITALS: BP 113/79
[2018-11-12 06:54] LABS: PLATELET COUNT, AUTOMATED 190 K/uL (150-450)
[2018-11-12 07:05] VITALS: BP 118/80
--- NOTE | 2018-11-12 09:07 | General Surgery Progress Note ---
Subjective Progress Notes Subjective doing well. pain well controlled. no vomiting. no flatus or bm. Physical Exam Vital Signs Date Time Temp Pulse Resp B/P (MAP) Pulse Ox O2 Delivery O2 Flow Rate FiO2 11/12/18 07:19 91 11/12/18 07:05 98.1 78 12 118/80 (93) Nasal Cannula 1.0 Intake and Output 11/12/18 07:00 Intake Total 2437 ml Balance 2437 ml Intake Oral 30 ml IV Total 2407 ml # Voids 2 General Appearance: No Acute Distress Cardiovascular: Other (reg rate) GI: Other (abd soft, wounds inspected and healing appropriately) Result Diagram: 11/12/18 0538 11/12/18 05 Assessment and Plan Problems: (1) Status post reversal of ileostomy Status: Acute Assessment & Plan: 11/11/18: POD#1 s/p ileostomy takedown. Doing well. Awaiting return of bowel function. Continue bowel rest and IV fluids. Lovenox, PPI, ambulation, IS, etc. 11/12/18: doing well. ambulate. will advance diet when he passes flatus. pain control. (2) S/P partial colectomy Status: Chronic (3) Rectal cancer Status: Resolved Exam Sepsis Risk: No Definite Risk EMILY WHTIE Nov 12, 2018 09:07
[2018-11-12] MEDS: HYDROmorphone PCA 6 MG/30 ML IV PRN (09:32)
[2018-11-12] MEDS: PANTOPRAZOLE SOD 40 MG IV VIAL IVP SCH (09:33)
[2018-11-12] MEDS: ENOXAPARIN 40 MG/0.4ML SYR SC SCH (09:39)
[2018-11-12] MEDS: NS(*) 0.9% 1000 ML BAG 1,000 ML IV PRN ×2 (11:53→23:12)
[2018-11-12 11:56] VITALS: BP 122/80
--- NOTE | 2018-11-12 12:44 | Antimicrobial Stewardship ---
Antimicrobial Stewardship Empiricly appropriate: Yes (On Zosyn post reversal of ileostomy.) Renal/Hepatic dosing: Yes Reviewed for Drug Interaction: Yes Monitored for Toxicities: Yes IV to PO Opportunity: No Determine cumulative duration: individualized WILFRID BONNER Nov 12, 2018 12:44
[2018-11-12 15:43] VITALS: BP 122/88
[2018-11-12 20:16] VITALS: BP 117/79
[2018-11-12 23:08] VITALS: BP 117/76
[2018-11-13 03:23] VITALS: BP 106/72
[2018-11-13] MEDS: PIPERACILLIN/TAZO*3.375GM VIAL 3.375 GM in NS(*) 0.9% 100 ML ADDVANT BAG 100 ML IVPB SCH ×4 (03:48→21:06)
[2018-11-13] MEDS: ACETAMINOPHEN(*)1000 MG/100 ML 100 ML IVPB SCH ×4 (05:13→23:49)
[2018-11-13 07:16] VITALS: BP 111/74
[2018-11-13] MEDS: PANTOPRAZOLE SOD 40 MG IV VIAL IVP SCH (09:00)
[2018-11-13] MEDS: ENOXAPARIN 40 MG/0.4ML SYR SC SCH (09:03)
[2018-11-13] MEDS: NS(*) 0.9% 1000 ML BAG 1,000 ML IV PRN (09:04)
--- NOTE | 2018-11-13 09:16 | General Surgery Progress Note ---
Subjective Progress Notes Subjective doing well. +bms. ambulating. Physical Exam Vital Signs Date Time Temp Pulse Resp B/P (MAP) Pulse Ox O2 Delivery O2 Flow Rate FiO2 11/13/18 07:54 88 Nasal Cannula 0.5 11/13/18 07:16 98.2 75 16 111/74 (86) Intake and Output 11/13/18 07:00 Intake Total 2818 ml Output Total 100 ml Balance 2718 ml Intake Oral 100 ml IV Total 2718 ml Output Stool Total 100 ml # Voids 5 # Bowel Movements 8 # Emeses 3 General Appearance: No Acute Distress Cardiovascular: Other (reg rate) GI: Other (abd soft, wounds healing appropriately) Result Diagram: 11/12/1853711/12/18537 Assessment and Plan Problems: (1) Status post reversal of ileostomy Status: Acute Assessment & Plan: 11/11/18: POD#1 s/p ileostomy takedown. Doing well. Awaiting return of bowel function. Continue bowel rest and IV fluids. Lovenox, PPI, ambulation, IS, etc. 11/12/18: doing well. ambulate. will advance diet when he passes flatus. pain control. 11/13/18: doing well. +bms. advance diet. d/c senior science consultant. ambulate. check labs tomorrow. barrier cream for raw perianal skin. (2) S/P partial colectomy Status: Chronic (3) Rectal cancer Status: Resolved Exam Sepsis Risk: No Definite Risk EMILY WHITE Nov 13, 2018 09:16
[2018-11-13 11:34] VITALS: BP 117/84
[2018-11-13 15:42] VITALS: BP 121/84
[2018-11-13] MEDS ORDERED: NS(*) 0.9% 1000 ML BAG 1,000 ML IV PRN (18:44)
[2018-11-13 19:45] VITALS: BP 123/85
[2018-11-13 23:55] VITALS: BP 119/84
[2018-11-14] MEDS: PIPERACILLIN/TAZO*3.375GM VIAL 3.375 GM in NS(*) 0.9% 100 ML ADDVANT BAG 100 ML IVPB SCH (03:04)
[2018-11-14 05:30] VITALS: BP 116/76
[2018-11-14] MEDS: ACETAMINOPHEN(*)1000 MG/100 ML 100 ML IVPB SCH (06:00)
[2018-11-14 06:33] LABS: PLATELET COUNT, AUTOMATED 222 K/uL (150-450)
[2018-11-14] MEDS ORDERED: IBUPROFEN 200 MG TAB PO PRN (08:05)
[2018-11-14] MEDS ORDERED: ACETAMINOPHEN 325 MG TAB PO PRN (08:05)
--- NOTE | 2018-11-14 08:08 | General Surgery Progress Note ---
Subjective Progress Notes Subjective No complaints this morning. Passing lots of flatus and lots of stools. Stools liquid but beginning to develop some form. Pain improving and well controlled. Physical Exam Vital Signs Date Time Temp Pulse Resp B/P (MAP) Pulse Ox O2 Delivery O2 Flow Rate FiO2 11/14/18 07:45 16 93 11/14/18 05:30 97.7 75 116/76 (89) Room Air 11/13/18 23:55 0.5 Intake and Output 11/14/18 07:00 Intake Total 4310 ml Balance 4310 ml Intake Oral 1160 ml IV Total 3150 ml # Voids 12 # Bowel Movements 12 General Appearance: Alert, Awake, No Acute Distress, Afebrile GI: Other (soft, appropriate postop TTP, dressing changed. Stoma takedown site looks good without erythema and with normal serous drainage.) Extremities: Warm, Perfused Result Diagram: 11/14/18 0556 11/14/18 0556 Assessment and Plan Problems: (1) Status post reversal of ileostomy Status: Chronic Assessment & Plan: 11/11/18: POD#1 s/p ileostomy takedown. Doing well. Awaiting return of bowel function. Continue bowel rest and IV fluids. Lovenox, PPI, ambulation, IS, etc. 11/12/18: doing well. ambulate. will advance diet when he passes flatus. pain control. 11/13/18: doing well. +bms. advance diet. d/c environmental services tech. ambulate. check labs tomorrow. barrier cream for raw perianal skin. 11/14/18: POD#4. Doing well. Will start regular diet today and stop IV fluids, IV meds, convert to PO meds. Home tomorrow if he tolerates these changes today. (2) S/P partial colectomy Status: Chronic (3) Rectal cancer Status: Resolved Condition Stable. Time Spent: < 30 min Exam Sepsis Risk: No Definite Risk GISELE OLVERA MD Nov 14, 2018 08:08
[2018-11-14] MEDS: PANTOPRAZOLE SOD 40 MG TABEC PO SCH (09:39)
[2018-11-14] MEDS: ENOXAPARIN 40 MG/0.4ML SYR SC SCH (09:40)
[2018-11-14 15:10] VITALS: BP 121/72
[2018-11-14] MEDS ORDERED: HYDROmorphone HCL 2 MG/ML SDV IVP PRN (18:10)
[2018-11-14 19:37] VITALS: BP 120/75
[2018-11-15 02:47] VITALS: BP 113/79
[2018-11-15 07:01] VITALS: BP 108/72
[2018-11-15] MEDS: PANTOPRAZOLE SOD 40 MG TABEC PO SCH (08:06)
[2018-11-15] MEDS: ENOXAPARIN 40 MG/0.4ML SYR SC SCH (08:07)
[2018-11-15] MEDS ORDERED: PER PO (08:11)
--- NOTE | 2018-11-15 08:20 | Short(Outpt) Discharge Summary ---
Discharge Summary Reason for Hosp/Final Diag: (1) Status post reversal of ileostomy Status: Chronic Hospital Course & Plan: 11/11/18: POD#1 s/p ileostomy takedown. Doing well. Awaiting return of bowel function. Continue bowel rest and IV fluids. Lovenox, PPI, ambulation, IS, etc. 11/12/18: doing well. ambulate. will advance diet when he passes flatus. pain control. 11/13/18: doing well. +bms. advance diet. 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 check labs tomorrow. barrier cream for raw perianal skin. 11/14/18: POD#4. Doing well. Will start regular diet today and stop IV fluids, IV meds, convert to PO meds. Home tomorrow if he tolerates these changes today. 11/15/18: POD#5. Doing well. Passing flatus and BMs. Having quite a bit of loose stools. Hopeful that they will solidify over the next week as his diet consists of more regular food but he is aware that he may have more frequent BMs due to his rectal resection with markedly decreased rectal storage capacity until the tissue compliance improves as his colon adapts to having fecal flow and his BMs should improve as his colonic microbiome and mucosal health improves now that fecal flow is reestablished. Will d/c to home today and will f/u with me next week. He is instructed to call if his loose stools worsen and then we may try immodium but I'm optimistic that they'll improve over the next week or two although it'll be months (6 months or more) before he returns to his new normal in terms of his bowel movements. (2) S/P partial colectomy Status: Chronic (3) Rectal cancer Status: Resolved Departure Discharge to: Home, Self Care Discharge Instructions Home Meds Active Scripts Oxycodone/Acetaminophen (OXYCODONE/ACETAMINOPHEN 5MG/325 MG) 5 Mg/325 Mg Tab, 1 TAB PO Q4H PRN for PAIN, #20 TAB 0 Refills Prov:GISELE OLVERA MD 11/15/18 Reported Medications Acetaminophen 500 Mg Tab (ACETAMINOPHEN EXTRA STRENGTH) 500 Mg Tablet, 1000 MG PO Q4-6H PRN for PAIN, TAB 11/11/18 Discontinued Reported Medications Acetaminophen (TYLENOL) 325 Mg Tablet, 1000 MG PO PRN, TAB 8/16/18 Follow up Referrals: General Surgery - 11/21/18 @ Surgery, General with GISELE OLVERA MD You have a follow up appointment scheduled with Dr. Olvera on 11/21/18, at 4:00pm. Diet: Regular Activity: No Heavy Lifting Special Instructions: You may shower as desired but don't immerse the wound until it's completely healed. Change the dressing every day. Avoid any activities that involve straining or lifting more than 10 pounds for 6 weeks after surgery to avoid a hernia at your stoma takedown wound. GISELE OLVERA MD Nov 15, 2018 08:20
--- NOTE | 2018-11-15 10:19 | Medical Nutrition Therapy ---
Nutrition Anthropometrics Height (Inches): 66.00 Height (Calculated Centimeters: 167.716092 Weight (Pounds): 169 Weight (Calculated Kilograms): 76.827 Gui Nutrition Score: Probably Inadequate Gui Nutrition Risk Score: 19 Dietary Referral Nutrition Risk Factors: Unplanned Loss >10lbs Nutrition Risk Comment: Physical Findings Physical Appearance: Overweight BMI 25-29 Skin Appearance Skin Appearance: Edema Edema Location Modifier: Edema Location: Type of Edema: Degree of Edema: Gastrointestinal Symptoms GI Symtoms: Tube Present: Bowel Sounds: Recent Bowel Pattern: Stool Characteristics: Nutritional Diagnosis Nutritional Risk Acuity 2: Ileostomy (reversed 11/11) Nutritional Risk Acuity 3: Cancer Past Medical History: Rectal cancer (11/11: remission), 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 Energy Requirement: 2033 (MSJ, 1.1 TEF, 1.2 AF) Protein Requirement: 77 (1 g AA/kg of BW) Fluid Requirement: 2033 (1 cc/kcal) Diet Type: Diet as Tolerated GABRIEL/REG Nutrition Intervention: Encourage intake, Incr diet as tolerated Nutrition Monitoring & Eval Nutrition Goals: Eat 50-100% Meal Nutrition Monitoring: Pt had 3 days NPO. Pt refused clear liquid dinner on 11/13. Pt is GABRIEL as of 11/14. -ELIAN RD Patient Assessment Time: [address] Assessment Type: RD Re-Assessment Patient Nutrition Acuity: 2-Moderate Follow Up Date: Nov 17, 2018 Nutritional Comment: 11/11: Pt admitted for a colonoscopy, power port removal, reversed ileostomy. Hx of rectal cancer, but now in remission. Pt is currently taking enoxaparin and has elevated RBG (115). Pt is currently NPO. -ELIAN 11/14: Pt is passing flatus and having bowel movements. Pt has decreased BUN levels (0.60). Pt was NPO from 11/11-11/13, clear liquid for dinner on 11/13, and GABRIEL on 11/14. No intake has been documented so far. -DANAY ENAMORADO Nov 14, 2018 11:53
== END 2018-11-15 09:50 | disposition home or self-care (01) | DRG 331 ==
LOC: OR 01:31 → MED 20:25
PROVIDERS: ADMIT Surgery; ATTEND Surgery
PROC: 0DJD8ZZ Inspection of Lower Intestinal Tract, Via Natural or Artificial Opening Endoscopic (ICD-10-PCS; principal; 2018-11-10 15:19)
PROC: 0DBB0ZZ Excision of Ileum, Open Approach (ICD-10-PCS; 2018-11-10 15:19)
PROC: 0JPT0WZ Removal of Totally Implantable Vascular Access Device from Trunk Subcutaneous Tissue and Fascia, Open Approach (ICD-10-PCS; 2018-11-10 15:19)
DX: Z43.2 Encounter for attention to ileostomy (principal); Z90.49 Acquired absence of other specified parts of digestive tract; Z85.048 Personal history of other malignant neoplasm of rectum, rectosigmoid junction, and anus; Z72.0 Tobacco use
CPT/HCPCS: 36415; 82310; 82374; 82435; 82565; 82947; 84132; 84295; 84520; 85025; 87324; 87449; 88307; 93005; C9113; J0131; J0295; J1100; J1170; J1650; J2001; J2370; J2405; J2543; J2704; J2795; J3010; J3360; J3490; J7030; J7050

== ENCOUNTER 2019-01-12 16:22 | Outpatient (RCR) | payer BC ==
[2018-11-11 10:05] VITALS: Wt 80.0 kg
[2019-01-02 09:11] VITALS: BP 113/66
[2019-01-02 09:26] LABS: PLATELET COUNT, AUTOMATED 321 K/uL (150-450)
[~2019-01-12 16:22] MED LIST changes: +ACET-2146 PO; +BIFI4CAP2 PO
[2019-01-12 16:27] VITALS: BP 117/74
--- NOTE | 2019-01-13 02:59 | [facility] ONCOLOGY NOTE ---
EVENT DATE: January 12, 2019 DIAGNOSIS Stage IIA (T3 N0 M0) rectal adenocarcinoma. CHIEF COMPLAINT Patient is here today for followup of his rectal adenocarcinoma. ONCOLOGY HISTORY The patient is a 53-year-old male who presented with change in his bowel movements and rectal bleeding. He had a colonoscopy on the March, and an upper or proximal rectal mass was noted. Biopsy was done on the March, and the pathology came back positive for moderately differentiated adenocarcinoma. MSH2 was negative, MSH6 equivocal. The rest were positive. PRF mutation was negative. NRAS mutation was negative, but KRAS mutation was positive. Patient had a CT abdomen and pelvis on the March, which showed asymmetric wall thickening in the mid and upper rectum. On the March, patient had an MRI of the pelvis which showed large mid and upper rectal tumor involving the lower sigmoid lesion, and it seems that the tumor was a T2 lesion by MRI of the pelvis. On the March, patient had a chest x-ray which showed two small, indeterminant pulmonary nodules. The largest was 6 mm in the left lower lobe of the lung. On the March, patient had LAR, and the pathology came back positive for positive, well-differentiated colonic adenocarcinoma, low grade, with invasion into the level of the serosa, but it did not extend into the pericolonic fat. Margins were negative. No lymphovascular invasion. Fourteen lymph nodes were negative for metastasis. Patient had CT abdomen and pelvis on the April. Both the abdomen and pelvis were seen and did not show any metastasis. Patient will start adjuvant chemotherapy with FOLFOX on the June. Patient completed eight cycles of adjuvant FOLFOX therapy, completed on the September. HISTORY OF PRESENT ILLNESS Patient is here today for followup of his rectal adenocarcinoma. Patient is doing fine currently. He denies any GI symptoms. He denies any GI bleeding. 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 He has occasional headache, but other than that, he is really doing very well. PAST MEDICAL HISTORY Insignificant except for his recent rectal adenocarcinoma. PAST SURGICAL HISTORY 1. Rectal surgery for his rectal cancer. 2. Tonsillectomy. FAMILY HISTORY Father had testicular cancer. Paternal uncle had prostate cancer. Paternal cousin with leukemia. SOCIAL HISTORY The patient is with two children. 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 Denies any abuse of tobacco, alcohol, or drugs. CURRENT MEDICATIONS Tylenol p.r.n. for pain. ALLERGIES No known drug allergies. REVIEW OF SYSTEMS: CONSTITUTIONAL: No appetite or weight change. No fever, chills or sweating. No recent infection. HEENT: Ears: No tinnitus or hearing problem. Nose: No nasal discharge or epistaxis. Throat: No sore throat or mouth ulcers. Eyes: No diplopia or visual changes. RESPIRATORY: No shortness of breath. No cough, expectoration or hemoptysis. CARDIOVASCULAR: No chest pain, orthopnea, or paroxysmal nocturnal dyspnea (PND). No edema. No palpitations. GASTROINTESTINAL: No nausea or vomiting. No diarrhea or constipation. No change in bowel movements. No heartburn or swallowing difficulties. No abdominal pain. No jaundice. No hematemesis, melena or rectal bleeding. GENITOURINARY: No hematuria or dysuria. MUSCULOSKELETAL: No pain in the muscles, joints or bones. NEUROLOGICAL: Has occasional headache and residual neuropathy in his hands and feet from previous oxaliplatin therapy. HEMATOLOGIC/LYMPHATIC: No bleeding or easy bruising. No weakness or fatigued. No enlarged lymph nodes. SKIN: No skin rash or lumps. PSYCHIATRIC: No anxiety or depression. PHYSICAL EXAMINATION GENERAL: Looks stable. Well-developed, well-nourished, and in no acute distress. VITAL SIGNS: Blood pressure 117/74, pulse 71 per minute, respirations 16 per minute, temperature 97, pulse oximetry 94% on room air. HEENT: Head: Atraumatic. No sinus tenderness to palpation. Eyes: No icterus or conjunctivitis. Mouth and throat: No oral thrush or mucositis. NECK: Supple. No cervical or supraclavicular lymphadenopathy. LUNGS: Clear to auscultation and percussion bilaterally. HEART: Regular rate and rhythm. No gallops, murmurs, clicks or rubs. ABDOMEN: Soft and lax. No tenderness. No hepatosplenomegaly. No masses. EXTREMITIES: No cyanosis, clubbing or edema. LYMPHATICS: No peripheral lymphadenopathy. NEUROLOGICAL: Conscious, alert and oriented times three. No focal motor or sensory deficits. PSYCHIATRIC: Mood and affect appear normal. SKIN: No skin rash, bruise or purpuric eruption. DIAGNOSTIC DATA CBC showed white count 3.1, hemoglobin 11, hematocrit 35, platelets 321,000. MCV is low at 72.6. Chem panel is totally normal except chloride 108. CEA was normal at 0.8. ASSESSMENT 1. Stage IIA (T3 N0 M0) rectal adenocarcinoma of the proximal rectum, status post low anterior resection done on April 07, 2018, for a tumor which invades the serosa, but it does not extend into the pericolonic fat. Tumor was low-grade, moderately differentiated, invasive adenocarcinoma. Microsatellite instability high was positive for MSH2, which was negative, and MSH6 was equivocal. BRAF and NRAS were negative, but KRAS mutation was positive. Fourteen lymph nodes were negative for metastasis. Lymphovascular invasion was negative. Margins were negative. CT abdomen and pelvis done March 17, 2018, and April 15, 2018, did not show any systemic metastasis. Chest x-ray March showed two small, indeterminant pulmonary nodules, the largest 6 mm in the left lower lobe, and the smallest was in the right middle lobe. Tumor was staged as stage T3 N0 with favorable histology defined by G1, low grade, with 2 mm or less pericolonic or perirectal invasion and no lymphovascular invasion. The 10-year local control rate without any treatment after surgery was 95%. The 10-year recurrence-free survival was 87%. Retrospective study from pooled data of [id number] patients in different well-organized clinical trials did compare chemotherapy alone versus adjuvant chemoradiation in patients with T3 N0. They found that the five-year survival was 84% after adjuvant chemotherapy alone compared to 76% after adjuvant chemoradiation. Five-year survival was 69% for adjuvant chemotherapy and also compared to 63% and 66% for adjuvant chemoradiation. It seems that adjuvant chemotherapy alone is comparable to adjuvant chemoradiation, and for this reason, patient started adjuvant chemotherapy with FOLFOX on June 14, 2018. He completed eight cycles of FOLFOX on the September. His current CEA is low at 0.8. His MCV showed microcytosis with MCV of 72.6, and he has hemoglobin of 11. I am concerned about iron deficiency, so I am planning to get iron studies and soluble transferrin receptor assay, and if the tests come back positive for iron deficiency, I am planning to send the patient to Dr. Hernadez for colonoscopy and esophagogastroduodenoscopy for evaluation of possible iron deficiency. I explained that to the patient, and he is agreeable with the plan of management. 2. Pulmonary nodules by CT scan on the September, with a plan to repeat the scan again in six months from September 2018, so this would be March 2019. 3. Microcytosis. This could be due to iron deficiency, and for this reason, I am planning to check iron studies with ferritin and soluble transferrin receptor assay. I will consider referral for GI workup if the patient has confirmed iron deficiency. PLAN 1. Iron studies with ferritin. 2. Transferrin receptor assay. 3. Patient to return after the above for further further evaluation and management. 4. Patient to contact us for any new concerns or complaints. ABEBA
[2019-01-13] MEDS ORDERED: FERR-53 PO (15:03)
== END 2019-03-30 ==
LOC: ONC 16:22
PROVIDERS: ATTEND Internal Medicine Hematology
DX: C20 Malignant neoplasm of rectum (principal); R91.8 Other nonspecific abnormal finding of lung field; R71.8 Other abnormality of red blood cells; Z92.21 Personal history of antineoplastic chemotherapy
CPT/HCPCS: 36415; 82040; 82247; 82310; 82374; 82378; 82435; 82565; 82728; 82947; 83540; 83550; 84075; 84132; 84155; 84238; 84295; 84450; 84460; 84520; 85025; 99212

== ENCOUNTER → 2019-03-15 | Outpatient (CLI) | payer BC ==
[2018-11-11 10:05] VITALS: BMI 27.3
[2019-03-15 16:46] LABS: PLATELET COUNT, AUTOMATED 279 K/uL (150-450)
== END ==
LOC: LAB 16:20
PROVIDERS: ATTEND Surgery
DX: R79.0 Abnormal level of blood mineral (principal); C20 Malignant neoplasm of rectum; R91.8 Other nonspecific abnormal finding of lung field
CPT/HCPCS: 36415; 82040; 82247; 82248; 82310; 82374; 82378; 82435; 82565; 82728; 82947; 83540; 83550; 84075; 84132; 84155; 84295; 84450; 84460; 84466; 84520; 85025

== ENCOUNTER 2019-04-07 14:24 | Outpatient (RCR) | payer BC ==
[2018-11-11 10:05] VITALS: BMI 27.3
== END 2019-04-10 15:39 | disposition home or self-care (01) ==
LOC: ONC 14:24
PROVIDERS: ATTEND Internal Medicine Hematology
DX: C20 Malignant neoplasm of rectum (principal)

== ENCOUNTER 2019-04-19 00:46 | Day surgery (SDC) | payer BC ==
[2018-11-11 10:05] VITALS: Ht 167.6 cm; Wt 79.4 kg
[~2019-04-19] VITALS: Ht 167.6 cm; Wt 79.4 kg
[2019-04-19] MEDS ORDERED: LIDOCAINE MPF 1% 5 ML VIAL ONE (07:28)
[2019-04-19] MEDS ORDERED: PROPOFOL EMUL(*) 10MG/ML 20 ML 60 ML ONE (07:28)
[2019-04-19 10:53] VITALS: BP 120/87
[2019-04-19] MEDS ORDERED: LIDOCAINE/SOD BICARB 8.4% SYR ID ONE (11:00)
[2019-04-19] MEDS ORDERED: NORMOSOL R SOLN(*) 1000 ML BAG 1,000 ML IV PRN (11:00)
[2019-04-19 11:06] LABS: PLATELET COUNT, AUTOMATED 274 K/uL (150-450)
[2019-04-19 13:27] VITALS: BP 93/72
--- NOTE | 2019-04-19 13:37 | Short(Outpt) Discharge Summary ---
Discharge Summary Reason for Hosp/Final Diag: (1) Rectal cancer Status: Resolved Hospital Course & Plan: Colonoscopy completed without problems, normal. (2) Anemia Status: Resolved Hospital Course & Plan: EGD and colonoscopy completed without problems. No obvious findings to explain anemia. Departure Discharge to: Home, Self Care Discharge Instructions Home Meds Reported Medications Acetaminophen 500 Mg Tab (ACETAMINOPHEN EXTRA STRENGTH) 500 Mg Tablet, 1000 MG PO Q4-6H PRN for PAIN, TAB 11/11/18 Diet: Regular Activity: As Tolerated Special Instructions: Your upper endoscopy and colonoscopy were completed without problems. I didn't find any explanation for anemia but your blood count is back to normal at this point so this should be followed by your oncologist. I did see some mild inflammation in your lower esophagus and I biopsied this. Your colon and rectum were completely normal; no polyps, cancer, and your rectum is wide open and completely healed. My office will call you in the next week or two to let you know what the biopsies of your esophagus reveal but, in any case, I recommend that your next colonoscopy be in 1 year and we'll put a reminder in our system to call you in 1 year to schedule your colonoscopy. Problem Qualifiers (1) Anemia: Anemia type: unspecified type Qualified Codes: D64.9 - Anemia, unspecified GISELE OLVERA MD Apr 19, 2019 13:37
[2019-04-19 13:46] VITALS: BP 94/60
[2019-04-19 13:57] VITALS: BP 87/57
[2019-04-19 14:15] VITALS: BP_SYST 111; BP_DIAS 90; BP_DIAS 91
[2019-04-19 14:21] VITALS: BP 108/86
== END 2019-04-19 14:31 | disposition home or self-care (01) ==
LOC: OR 00:46
PROVIDERS: ATTEND Surgery
DX: Z12.11 Encounter for screening for malignant neoplasm of colon (principal); Z85.048 Personal history of other malignant neoplasm of rectum, rectosigmoid junction, and anus; K21.0 Gastro-esophageal reflux disease with esophagitis
CPT/HCPCS: 00813; 43239; 45378; 82728; 83540; 83550; 84466; 85025; 88305; 88313; J2001; J2704